=== PATIENT | female | born 1965 | race Caucasian/White ===

== ENCOUNTER 2016-11-07 11:32 | Inpatient (IN) | payer OTHER ==
[~2016-11-07] VITALS: Ht 165.1 cm; Wt 55.5 kg
[~2016-11-07 11:32] MED LIST: ALBU18HF INHALATION; BENZ100C70 PO; CETI10CA PO; GUAI118L94 PO; LEVO500T72 PO; PRED15SO PO; PRED50TA PO
[2016-11-07] MEDS ORDERED: SOD CHLORIDE 0.9% 1,000 ML IV STA (11:43)
[2016-11-07] MEDS ORDERED: NALOXONE (0.4 MG/ML) INJ IV PRN (12:00)
--- NOTE | 2016-11-07 12:14 | RADRPT ---
PROCEDURE: XR Chest. CLINICAL INDICATION: Dyspnea TECHNIQUE: Single frontal chest x-ray. COMPARISON: 12/06/2015 FINDINGS: The lungs are clear. No focal opacification is seen. The cardiomediastinal silhouette is unremarka ble. The osseous structures are unremarkable. Appearances are stable over time. IMPRESSION: 1. There is no acute cardiopulmonary process. 2. Stable appearances over time. RPTAT: HMJB .Jos Ferguson MD, MD Date Time Electronically viewed and signed by .Jos Ferguson MD, MD on 11/07/2016 12:14 .B/
[2016-11-07 12:15] LABS: BASOPHILS % 0.4 % (0.0-2.0); EOSINOPHILS % 0.3 % (0.0-7.0); HEMATOCRIT 40.6 % (37.0-47.0); HEMOGLOBIN 13.4 g/dl (12.0-16.0); LYMPHOCYTES # 1.8 10^3/ul (0.8-2.9); LYMPHOCYTES % 21.1 % (15.0-51.0); MEAN CORPUSCULAR HEMOGLOBIN 27.6 pg (29.0-33.0); MEAN CORPUSCULAR VOLUME 83.5 fl (82.0-101.0); MEAN PLATELET VOLUME 9.9 fl (7.4-10.4); MONOCYTE # 0.3 10^3/ul (0.3-0.9); MONOCYTES % 4.1 % (0.0-11.0); NEUTROPHIL # 6.2 10^3/ul (1.6-7.5); NEUTROPHILS % 74.1 % (39.0-77.0); PLATELET COUNT 266 10^3/UL (140-440); RED BLOOD COUNT 4.86 10^6/ul (4.20-5.40); RED CELL DISTRIBUTION WIDTH 13.7 % (11.5-14.5); UNCORRECTED WBC 8.4 10^3/ul (4.8-10.8); WHITE BLOOD COUNT 8.4 10^3/ul (4.8-10.8)
[2016-11-07 12:17] LABS: CONDITION 1
[2016-11-07 12:26] LABS: ADD UMIC YES; URINE BILIRUBIN (Dip) NEGATIVE (NEGATIVE); URINE BLOOD (Dip) NEGATIVE (NEGATIVE); URINE COLOR LT. YELLOW (YELLOW); URINE GLUCOSE (Dip) NEGATIVE (NEGATIVE); URINE KETONES (Dip) NEGATIVE (NEGATIVE); URINE LEUKOCYTE ESTERASE (Dip) TRACE (NEGATIVE); URINE NITRITE (Dip) NEGATIVE (NEGATIVE); URINE TOTAL PROTEIN (Dip) NEGATIVE (NEGATIVE); URINE UROBILINOGEN (Dip) 0.2 E.U./dL (0.1-1.0)
[2016-11-07 12:28] LABS: CHLORIDE 104 mmol/L (97-110)
[2016-11-07 12:29] LABS: ALBUMIN 4.4 g/dl (3.3-4.9); SODIUM 142 mmol/L (135-144)
[2016-11-07 12:30] LABS: POTASSIUM 4.5 mmol/L (3.5-5.1)
[2016-11-07 12:32] LABS: ALANINE AMINOTRANSFERASE 21 IU/L (13-69); ALBUMIN/GLOBULIN RATIO 1.18; ALKALINE PHOSPHATASE 135 IU/L (42-121); ANION GAP 16 (8-16); ASPARTATE AMINO TRANSFERASE 19 IU/L (15-46); BILIRUBIN,INDIRECT 0.7 mg/dl (0-1.1); BILIRUBIN,TOTAL 0.7 mg/dl (0.2-1.3); BLOOD UREA NITROGEN 16 mg/dl (7-20); CALCIUM 9.4 mg/dl (8.4-10.2); CARBON DIOXIDE 27 mmol/L (21-31); CREATINE KINASE 90 IU/L (23-200); CREATININE 0.72 mg/dl (0.44-1.00); GLUCOSE 87 mg/dl (70-220); TOTAL PROTEIN 8.1 g/dl (6.1-8.1)
[2016-11-07 12:37] LABS: INR 1.01; PARTIAL THROMBOPLASTIN TIME 29.3 Sec (25.0-35.0); PROTIME 13.3 Sec (12.2-14.2)
[2016-11-07 12:38] LABS: URINE RBCS 0-2 /HPF (0)
[2016-11-07 12:40] LABS: CK-MB 1.68 ng/ml (0.0-2.4)
[2016-11-07 12:44] LABS: ACETAMINOPHEN < 10.0 ug/ml (10.0-30.0); ETHANOL < 10.0 mg/dl; SALICYLATE < 1.0 mg/dl (5.0-30.0); TROPONIN-I < 0.012 ng/ml (0.00-0.12)
[2016-11-07 13:17] LABS: BARBITURATES NEGATIVE (NEGATIVE); BENZODIAZEPINES NEGATIVE (NEGATIVE); CANNABINOIDS NEGATIVE (NEGATIVE); COCAINE NEGATIVE (NEGATIVE); OPIATES NEGATIVE (NEGATIVE)
[2016-11-07] MEDS ORDERED: FLUO40CA10 PO (13:38)
[2016-11-07] MEDS ORDERED: TRAZ100T15 PO (13:39)
--- NOTE | 2016-11-07 13:40 | RADRPT ---
PROCEDURE: CT Brain without contrast. CLINICAL INDICATION: Altered Mental Status TECHNIQUE: A multiplanar CT of the brain was performed on a CT scanner utilizing axial imaging fro m the skull base through the vertex without IV contrast. The CTDIvol is 45.0 mGy and the DLP is 630 .20 mGycm. One or more of the following dose reduction techniques were utilized: Automated exposur e control, adjustment of the mA and/or kV according to patient size, use of iterative reconstruction technique. COMPARISON: None FINDINGS: No evidence of intracranial hemorrhage or abnormal extra-axial fluid collection. The brain parenchyma is normal attenuation morphology with preservation of pa white differentiatio n and age appropriate size of the ventricles and subarachnoid spaces. Bilateral physiologic basal ganglia calcifications. The posterior fossa contents, brainstem, craniocervical junction, orbits, pituitary axis, paranasal sinuses, mastoid air cells, and calvarium are unremarkable. IMPRESSION: 1. No intracranial hemorrhage or acute intracranial. 2. Early ischemic injury may be occult to CT imaging and diffusion weighted MRI may be considered as clinically warranted. RPTAT:AAJJ Physician Inez Date Time Electronically viewed and signed by Physician Inez on 11/07/2016 13:39 RADHA/
[2016-11-07] MEDS ORDERED: CLON-379 PO (14:21)
[2016-11-07] MEDS ORDERED: CLON1TAB3 PO (14:22)
[2016-11-07 14:24] LABS: T3 UPTAKE 35.7 % (23.5-40.5)
[2016-11-07] MEDS ORDERED: OLAN15TA3 PO (14:25)
--- NOTE | 2016-11-07 14:34 | ERA ---
ER Documentation Chief Complaint Date/Time DATE: 11/07/16 TIME: 14:26 Chief Complaint overdose at home; ems admin narcan with therapeutic results HPI This is a 51-year-old female with a known history of depression. The patient was recently admitted to a psychiatric facility for a month and a half for suicidal thoughts and ideations and was discharged on September 27, 2016. Her ex - indicates that over the past several days the patient has been expressing multiple suicidal thoughts and has been very quiet and requesting time alone. She lives with her cousin. Her cousin stated she found her sleeping on the floor and immediately phoned 911. When EMS arrived they stated there was a fluoxetine 40 mg bottle adjacent to her as well as a trazodone 100 mg tablets. The fluoxetine bottle was full and there was one trazodone missing. Therefore it was suspected that the patient took 100 mg of trazodone and it is unknown what time this was taken. According to EMS the patient had pinpoint pupils and was given some nasal Narcan with no improvement of her symptoms. She was maintaining her airway. There is no signs of trauma or drug paraphernalia according to EMS. ROS All systems reviewed and are negative except as per history of present illness. Medications Home Meds Reported Medications Olanzapine* (Zyprexa*) 15 Mg Tablet, 15 MG PO DAILY, #30 TAB 11/07/16 Clonazepam* (Clonazepam*) 1 Mg Tablet, 1 MG PO Q8H Y for ANXIETY, TAB 11/07/16 Trazodone Hcl* (Trazodone Hcl*) 100 Mg Tablet, 100 MG PO QHS, #30 TAB 11/07/16 Fluoxetine Hcl* (Prozac*) 40 Mg Capsule, 40 MG PO DAILY, CAP 11/07/16 Discontinued Reported Medications Clonidine Hcl* (Clonidine Hcl*) 0.1 Mg Tab, 0.1 MG PO TID Y for ANXIETY, TAB 11/07/16 Discontinued Scripts Benzonatate* (Tessalon Perle*) 100 Mg Capsule, 100 MG PO Q8H Y for COUGH, #20 CAP Prov:YOANDY CASTELLANOS PA-C 02/25/16 Cetirizine Hcl* (Zyrtec*) 10 Mg Capsule, 10 MG PO DAILY, #10 TAB.CHEW Prov:YOANDY CASTELLANOS PA-C 02/25/16 Levofloxacin* (Levaquin*) 500 Mg Tablet, 500 MG PO DAILY for 7 Days, TAB Prov:SILVIAYONIS Ronald 12/06/15 Prednisone* (Prednisone*) 50 Mg Tablet, 50 MG PO DAILY for 5 Days, TAB Prov:SHOAIB COSTA PHYSICIAN'S AIDE 12/02/15 Guaifenesin-Codeine Phosphate* (Guaifenesin* with Codeine Liq) 120 Ml Liquid, 5 ML PO Q4H for COUGH, #60 ML Prov:SHOAIB COSTA PHYSICIAN'S AIDE 12/02/15 Benzonatate* (Tessalon Perle*) 100 Mg Capsule, 100 MG PO TID, #14 CAP Prov:IKE MONDRAGON 12/02/15 Albuterol Sulfate* (Ventolin HFA*) 18 Gm Hfa.aer.ad, 2 PUFF INHALATION Q4H, #1 INHALER Prov:IKE MONDRAGON 12/02/15 Prednisolone* (Prelone*) 15 Mg/5 Ml Solution, 20 MG PO BID for 5 Days, ML Prov:IKE MONDRAGON 12/02/15 Allergies Allergies: Coded Allergies: No Known Allergy (Unverified , 11/07/16) PMhx/Soc History of Surgery: No Anesthesia Reaction: No Hx 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 Disorder: No Hx Respiratory Disorders: No Hx Cardiac Disorders: No Hx Psychiatric Problems: Yes (Anxiety/depression, Pschizophrenia) Hx Miscellaneous Medical Probl: No Hx Alcohol Use: No Hx Substance Use: No Hx Tobacco Use: No Smoking Status: Never smoker Physical Exam Vitals Vital Signs Date Time Temp Pulse Resp B/P Pulse Ox O2 Delivery O2 Flow Rate FiO2 11/08/16 09:58 98.0 72 18 125/74 99 Room Air 11/08/16 02:00 98.3 75 16 122/75 99 Room Air 11/07/16 23:14 98.3 76 16 128/73 100 Room Air 11/07/16 22:56 98.3 64 16 130/76 100 Room Air 11/07/16 20:37 98.3 75 16 118/78 100 Room Air 11/07/16 16:52 98.1 73 18 122/76 100 Room Air 11/07/16 14:00 98.1 66 16 128/78 100 Room Air 11/07/16 11:48 97.6 72 18 115/74 100 Physical Exam Constitutional:Well-developed. Well-nourished. HEENT:Normocephalic. Atraumatic.Pupils were 2 mm equal round reactive to light. Moist mucous membranes.No tonsillar exudates. No nasoseptal hematoma. No hemotympanum. Neck: No nuchal rigidity. No lymphadenopathy. No posterior cervical spine tenderness or step-offs. Respiratory: Not using accessory muscles of respiration.Lungs were clear to auscultation bilaterally. No rhonchi. No rales. No wheezing. Cardiovascular: Regular rate regular rhythm.No murmurs. No rubs were appreciated.S1, S2 normal. Distal pulses are palpable 2+ bilaterally. GI: Abdomen was soft. Nontender. Non Distended. No pulsatile abdominal masses or bruits. No rebound. No guarding. Bowel sounds were present and normal. Muscle skeletal: Full range of motion of both the upper and lower extremities bilaterally.Normal muscle tone.No assymetrical calf tenderness or swelling. Skin: No petechia, no purpura. No lesions on the palms or the soles of the feet. No maculopapular rash. NEURO: Patient was drowsy and had slurred speech. She would follow simple verbal command. Gait was not able to be observed due to patient's drowsiness. Result Diagram: 11/07/16 1200 11/07/16 1200 Results 24 hrs Laboratory Tests Test 11/07/16 12:00 11/07/16 12:10 Acetaminophen Level < 10.0ug/ml Activated Partial Thromboplast Time 29.3Sec Alanine Aminotransferase (ALT/SGPT) 21IU/L Albumin 4.4g/dl Albumin/Globulin Ratio 1.18 Alkaline Phosphatase 135IU/L Ammonia < 9umol/l Anion Gap 16 Aspartate Amino Transf (AST/SGOT) 19IU/L Basophils # 0.010^3/ul Basophils % 0.4% Blood Morphology Comment Blood Urea Nitrogen 16mg/dl Calcium Level 9.4mg/dl Carbon Dioxide Level 27mmol/L Chloride Level 104mmol/L Creatine Kinase 90IU/L Creatine Kinase Index 1.9 Creatinine 0.72mg/dl Creatinine Kinase MB (Mass) 1.68ng/ml Direct Bilirubin 0.00mg/dl Eosinophils # 0.010^3/ul Eosinophils % 0.3% Ethyl Alcohol Level < 10.0mg/dl Free Thyroxine Index 3.18ug/ml Globulin 3.70g/dl Glucose Level 87mg/dl Hematocrit 40.6% Hemoglobin 13.4g/dl INR International Normalized Ratio 1.01 Indirect Bilirubin 0.7mg/dl Lymphocytes # 1.810^3/ul Lymphocytes % 21.1% Mean Corpuscular Hemoglobin 27.6pg Mean Corpuscular Hemoglobin Concent 33.0g/dl Mean Corpuscular Volume 83.5fl Mean Platelet Volume 9.9fl Monocytes # 0.310^3/ul Monocytes % 4.1% Neutrophils # 6.210^3/ul Neutrophils % 74.1% Nucleated Red Blood Cells # 0.010^3/ul Nucleated Red Blood Cells % 0.0/100WBC Platelet Count 10828^3/UL Potassium Level 4.5mmol/L Prothrombin Time 13.3Sec Prothrombin Time Ratio 1.0 Red Blood Count 4.8610^6/ul Red Cell Distribution Width 13.7% Salicylates Level < 1.0mg/dl Sodium Level 142mmol/L Thyroxine (T4) 8.9ug/dl Total Bilirubin 0.7mg/dl Total Protein 8.1g/dl Triiodothyronine (T3) Uptake 35.7% Troponin I < 0.012ng/ml White Blood Count 8.410^3/ul Urine Amphetamines Screen NEGATIVE Urine Barbiturates NEGATIVE Urine Benzodiazepines Screen NEGATIVE Urine Bilirubin NEGATIVE Urine Cannabinoids NEGATIVE Urine Clarity CLEAR Urine Cocaine Screen NEGATIVE Urine Color LT. YELLOW Urine Glucose NEGATIVE% Urine Hemoglobin NEGATIVE Urine Ketones NEGATIVE Urine Leukocyte Esterase TRACE Urine Microscopic RBC 0-2/HPF Urine Microscopic WBC 2-5/HPF Urine Nitrite NEGATIVE Urine Opiates Screen NEGATIVE Urine Specific [place] <=1.005 Urine Total Protein NEGATIVE Urine Urobilinogen 0.2 E.U./dL Urine pH 6.0 Current Medications Medications (Trade) Dose Ordered Sig/Adnoay Route PRN Reason Start Time Stop Time Status Last Admin Dose Admin Naloxone HCl 0.4 mg 0.4 mg Q2M PRN IV LETHARGY 11/07/16 12:00 11/07/16 12:05 Sodium Chloride (NS) 1,000 ml @ 1,000 mls/hr Q1H STAT IV 11/07/16 11:43 11/07/16 12:42 DC 11/07/16 12:06 Procedures/MDM The patient presented to the emergency department with an acute and persistent change in their mental status. The differential diagnosis is diverse however reversible causes such as hypoglycemia, opiate overdose, thiamine deficiency were immediately considered. The patient was placed on a ekg monitor, continuous pulse oximetry and IV access was established. The patients airway was secure however hypoxic events such as anemia, shock, or severe pulmonary disease were all considered as etiologies in this patients presentation. Circulation assessed with good cap refill and did not require fluids or pressure support. Finger stick for rapid glucose determined to be normal. The patient was given a liter bolus of 0.9 normal saline. 0.4 mg of Narcan had been given to the patient with no changes in her mental status. Her urine drug screen was negative for opiates and it was my clinical impression that the patient likely had taken 100 mg of trazodone resulting in the sedative causing the drowsiness of the patient. She now was much more alert awake and was answering all questions appropriately. She did state that she had attempted to commit suicide and took her trazodone. She has been having suicidal thoughts and has a plan to kill herself with overdosing on her prescription medications. Therefore at this time I did feel the patient required evaluation by the PET team for transfer to her suicidal thoughts and ideations. Documentation also indicates that the patient is on Klonopin. There is no electrolyte abnormalities. The patient was medically cleared by myself. I obtained a CT scan of the head which showed no acute intracerebral hemorrhage mass-effect or midline shift. Departure Diagnosis: Primary Impression: Toxic encephalopathy Additional Impression: Suicidal thoughts Condition: Serious DEEJAY DEVLIN Nov 07, 2016 14:34
--- NOTE | 2016-11-08 10:26 | QN ---
Documentation Comment Observation Note: Time: 4 hours Family Hx: Negative for diabetes Evaluation: Multiple exams showed improving symptoms and no evidence of clinical decompensation. Patient is pending psychiatric evaluation as well as transfer to a psychiatric facility. JAZZ ALBERTO MD Nov 08, 2016 10:26
--- NOTE | 2016-11-08 11:39 | PSY ---
Date/Time of Note Date/Time of Note DATE: 11/08/16 TIME: 11:33 Psychiatric Subjective Eval Consent Pt consented to telemedicine: Yes Subjective Evaluation Patient location: emergency Chief Complaint: overdose at home; ems admin narcan with therapeutic results History of present illness d/w Dr Morgan. Pt is 51 yo single disabled female with hx MDD; s/p OD on prozac and trazodone. Pt was inpt for 8 weeks, discharged 09/27/16 but started talking about suicide prior to OD. Pt is withdrawn, barely speaks to the medical staff in ED, whispers, not feeding herself, refuses to walk. She nods then asked if she is still suicidal, she is oriented at least x3, she denies ahor vh. Not clear if she is delusional - she is selectively mute. Pt's past meds include zyprexa, prozac and tzd. Past psychiatric history largely unknown, hx deprssion and prior SA, prior inpt Hospitalization: Suicidal Attempt(s) Family History unknown Medical history Problems Medical Problems: (1) Acute bacterial bronchitis Status: Acute (2) Acute viral bronchitis Status: Acute (3) Cough Status: Acute (4) Reactive airway disease Status: Acute (5) Suicidal thoughts Status: Acute (6) Toxic encephalopathy Status: Acute (7) Viral bronchitis Status: Acute Allergies: Coded Allergies: No Known Allergy (Unverified , 11/07/16) Substance Abuse Substance use: No known substance abuse Social History Marital status: DPA/Conservatorship: No Psychiatric Objective Eval Mental Status Examination: Appearance: Bizarre Eye Contact: None Psychomotor Activity: Slow Behavior: Cooperative Speech: Soft, Monotone, Slowed, Prolong Speech Latency AFFECT: Flat Mood: Depressed Though Process: Linear Suicidal: Yes Homicidal: No Orientation: x3 Cognition: Alert Insight: Impared Judgement: Impared Laboratory Results Laboratory Tests Test 11/07/16 12:00 11/07/16 12:10 Acetaminophen Level < 10.0ug/ml Activated Partial Thromboplast Time 29.3Sec Alanine Aminotransferase (ALT/SGPT) 21IU/L Albumin 4.4g/dl Albumin/Globulin Ratio 1.18 Alkaline Phosphatase 135IU/L Ammonia < 9umol/l Anion Gap 16 Aspartate Amino Transf (AST/SGOT) 19IU/L Basophils # 0.010^3/ul Basophils % 0.4% Blood Morphology Comment Blood Urea Nitrogen 16mg/dl Calcium Level 9.4mg/dl Carbon Dioxide Level 27mmol/L Chloride Level 104mmol/L Creatine Kinase 90IU/L Creatine Kinase Index 1.9 Creatinine 0.72mg/dl Creatinine Kinase MB (Mass) 1.68ng/ml Direct Bilirubin 0.00mg/dl Eosinophils # 0.010^3/ul Eosinophils % 0.3% Ethyl Alcohol Level < 10.0mg/dl Free Thyroxine Index 3.18ug/ml Globulin 3.70g/dl Glucose Level 87mg/dl Hematocrit 40.6% Hemoglobin 13.4g/dl INR International Normalized Ratio 1.01 Indirect Bilirubin 0.7mg/dl Lymphocytes # 1.810^3/ul Lymphocytes % 21.1% Mean Corpuscular Hemoglobin 27.6pg Mean Corpuscular Hemoglobin Concent 33.0g/dl Mean Corpuscular Volume 83.5fl Mean Platelet Volume 9.9fl Monocytes # 0.310^3/ul Monocytes % 4.1% Neutrophils # 6.210^3/ul Neutrophils % 74.1% Nucleated Red Blood Cells # 0.010^3/ul Nucleated Red Blood Cells % 0.0/100WBC Platelet Count 64269^3/UL Potassium Level 4.5mmol/L Prothrombin Time 13.3Sec Prothrombin Time Ratio 1.0 Red Blood Count 4.8610^6/ul Red Cell Distribution Width 13.7% Salicylates Level < 1.0mg/dl Sodium Level 142mmol/L Thyroxine (T4) 8.9ug/dl Total Bilirubin 0.7mg/dl Total Protein 8.1g/dl Triiodothyronine (T3) Uptake 35.7% Troponin I < 0.012ng/ml White Blood Count 8.410^3/ul Urine Amphetamines Screen NEGATIVE Urine Barbiturates NEGATIVE Urine Benzodiazepines Screen NEGATIVE Urine Bilirubin NEGATIVE Urine Cannabinoids NEGATIVE Urine Clarity CLEAR Urine Cocaine Screen NEGATIVE Urine Color LT. YELLOW Urine Glucose NEGATIVE% Urine Hemoglobin NEGATIVE Urine Ketones NEGATIVE Urine Leukocyte Esterase TRACE Urine Microscopic RBC 0-2/HPF Urine Microscopic WBC 2-5/HPF Urine Nitrite NEGATIVE Urine Opiates Screen NEGATIVE Urine Specific [place] <=1.005 Urine Total Protein NEGATIVE Urine Urobilinogen 0.2 E.U./dL Urine pH 6.0 Assessment and Plan Assessment/Diagnosis [place] I: MAJOR DEPRESSIVE D/O RECURRENT SEVERE [place] II: DEFERED [place] III: PER RECORD [place] IV: MODERATE [place] V: GAF 25 Recommendation/Plan Medication Management cONSIDER STARTIN ON ABILIFY 5 MG PO QD; CONTINUE ON PROZAC 40 MG POQD Psychotherapy DEFER TO INPT Follow-up/Disposition 5150 FOR DTS, GD, TRANSFER TO INPT PSYCH. 5150 Recommendation: Continue Hold SARITHA MACIAS MD Nov 08, 2016 11:39
[2016-11-08] MEDS: ARIPIPRAZOLE 5 MG TAB PO SCH (13:19)
[2016-11-09] MEDS: ARIPIPRAZOLE 5 MG TAB PO SCH (09:10)
--- NOTE | 2016-11-09 13:49 | EN ---
Date/Time of Note Date/Time of Note DATE: 11/09/16 TIME: 13:44 ER Progress Note It was brought to my attention by the staff that the patient was unable to ambulate and was generally weak. When they did try to get her up she almost fell onto the floor. I went back to evaluate her and the patient has significant generalized weakness and altered mental status. I reviewed her CT of her head and her lab work and all this is within normal limits and does not explain her significant weakness. She is unable to go to any psychiatric facilities because of this. It is felt that if this weakness had been due to an overdose that should have resolved by this time as she has been here now for over 48 hours. Her states that about 4-6 weeks ago she was within normal limits and able to ambulate on her own and that this has developed pretty significantly within a short amount of time. They will consult to admit her to the hospital for further evaluation and treatment of this weakness and altered mental status. It may be that she needs to be transferred to a long-term facility for physical rehabilitation. TIP EDMONDSON Nov 09, 2016 13:49
--- NOTE | 2016-11-09 15:48 | QN ---
Documentation Comment Patient was found to have negative drug screen and negative tylenol, alcohol, aspirin levels. Patient is still extremely weak with generalized weakness and has been in the ER for 52 hours. I believe the initial thought that this was drug overdose may be erroneous and now the patient had generalized weakness and may benefit from SNF placement with potential rehab. I spoke with Dr. Clarke who will assist with finding SNF placement. MRI's are pending at this time. JAZZ ALBERTO MD Nov 09, 2016 15:48
[2016-11-09 19:17] LABS: CREATINE KINASE 104 IU/L (23-200)
[2016-11-09 19:28] LABS: CK-MB 1.73 ng/ml (0.0-2.4)
[2016-11-09 19:41] LABS: TROPONIN-I < 0.012 ng/ml (0.00-0.12)
--- NOTE | 2016-11-09 20:33 | QN ---
Documentation Comment Observation Note: Time: 4 hours Family Hx: Negative for diabetes Evaluation: Multiple exams showed improving symptoms and no evidence of clinical decompensation. JAZZ ALBERTO MD Nov 09, 2016 20:33
--- NOTE | 2016-11-09 22:51 | RADRPT ---
PROCEDURE: MRI Brain without contrast. CLINICAL INDICATION: 51-year-old female unable to walk possible overdose. TECHNIQUE: An MRI of the brain was performed without contrast utilizing the following sequences: Sagittal T1 weighted, sagittal FLAIR, axial T1, axial FLAIR, axial T2 weighted, axial diffusion weig hted (EPI technique [id number]), axial ADC mapping. The images were reviewed on a high-resolution PACS workstation. COMPARISON: CT head 11/07/2016 FINDINGS: The images are degraded due to motion artifact on multiple sequences. Diffusion weighted sequences demonstrate no evidence of acute lacunar or lobar infarction. There is no intracranial hemorrhage, extra-axial fluid collection, mass lesion, midline shift or hydrocephalous. The ventricles, sulci a nd cisterns are normal in size and configuration. The basal cisterns are patent. The signal intensi ty is normal throughout the cerebrum, brain stem and cerebellum. Normal flow voids are visible the proximal intracranial arteries and dural sinuses, indicating patency. The midline structures are in tact. The paranasal sinuses, mastoid air cells and middle ear cavities are normally aerated. The orbits, calvarium and extracranial soft tissues are normal in appearance. IMPRESSION: 1. No acute intracranial abnormality. No intracranial hemorrhage, mass lesion, infarction or hydro cephalous. RPTAT: HGAS .Deni Knox MD, Date Time Electronically viewed and signed by .Deni Knox MD, on 11/09/2016 22:50 .S/
--- NOTE | 2016-11-09 22:59 | RADRPT ---
PROCEDURE: MRI Cervical Spine without contrast. CLINICAL INDICATION: 51-year-old female unable to walk possible overdose. TECHNIQUE: An MRI of the cervical spine was performed without contrast utilizing multiple sequence s in the sagittal and axial planes. Images reviewed on a high-resolution PACS system.. COMPARISON: No prior studies are available for comparison. FINDINGS: There is diffuse straightening of the cervical spine without reversal of normal cervical lordosis. There is diffuse desiccation of the intervertebral discs with moderate loss of disc-space height at C4-5, C5-6 and C6-7. There are mild associated discogenic endplate changes at these levels. There is prevertebral soft tissue swelling seen extending from C2 to the level of C4. The anterior longit udinal ligament appears intact. The vertebral body heights are maintained. The marrow signal is wi thin normal limits. There is no evidence of edema within the clavicle - dental interval. There is minimal edema adjacent to the interspinous articulations at C1-2, C2-3, C3-4 and C4-5 (sagittal seri es image 7). There is no significant listhesis. The craniocervical and cervical medullary junction s are unremarkable. The cervical cord is normal in caliber and signal intensity. Occiput-C2: The anatomic relationships are normal without canal stenosis. C2-3: There is a 1 mm posterior disc/osteophyte complex. The thecal sac and neural foramina are pat ent. C3-4: There is a 1-2 mm posterior disc/osteophyte complex. The thecal sac is patent measuring 11 mm midline AP diameter. There is mild bilateral facet joint hypertrophy. There is mild bilateral faustino ral foraminal narrowing. C4-5: There is a broad-based 2-3 mm posterior disc/osteophyte complex. The thecal sac measures 7.4 mm in midline AP diameter. There is effacement of the ventral and dorsal CSF columns. There is mil d bilateral facet hypertrophy and moderate left and mild right uncovertebral joint spondylosis. The re is severe left and mild right neural foraminal narrowing. C5-6: There is a broad-based 2-3 mm posterior disc/osteophyte complex, slightly asymmetric to the ri ght paracentral region. The thecal sac measures 7.3 mm midline AP diameter. There is effacement of the ventral and dorsal CSF columns. There is mild bilateral facet hypertrophy and mild to moderate bilateral uncovertebral joint spondylosis. There is severe bilateral neural foraminal narrowing. C6-7: There is a broad-based 2 mm posterior disc/osteophyte complex. The thecal sac measures 8 mm i n midline AP diameter. There is partial effacement of the ventral CSF column. There is mild bilate ral facet hypertrophy and mild left uncovertebral joint spondylosis. There is moderate left and mil d right neural foraminal narrowing. C7-T1: There is a 1-2 mm posterior disc/osteophyte complex. The thecal sac and neural foramina are patent. IMPRESSION: 1. Mild amount of edema in the prevertebral soft tissues as well as of the interspinous articulatio ns at C1-2, C2-3, C3-4 and C4-5. Concern is raised for possible ligamentous injury. No definite zach dence of fracture or dislocation. 2. The cervical cord is normal in signal and caliber. No evidence of myelopathic changes at this ti me. 3. Moderate spondylosis at C4-5 and C5-6 with subsequent moderate central stenosis. 4. Multilevel facet and uncovertebral joint spondylosis with severe narrowing of the left C4-5 and bilateral C5-6 foramina. Other mild to moderate foraminal narrowings as discussed above. RPTAT: HGAS .Deni Knox MD, Date Time Electronically viewed and signed by .Deni Knox MD, on 11/09/2016 22:59 .S/
--- NOTE | 2016-11-09 23:05 | RADRPT ---
PROCEDURE: MRI Thoracic Spine without contrast. CLINICAL INDICATION: 51-year-old female unable to walk possible overdose. TECHNIQUE: An MRI of the thoracic spine was performed with multiple sequences in the sagittal and axial planes without contrast. Images reviewed on a high-resolution PACS system. COMPARISON: No prior studies are available for comparison. FINDINGS: The thoracic kyphosis is maintained. The vertebral body heights are maintained. There is a T1 hype rintense/T2 hyperintense osseous hemangioma in the T4 vertebral body The marrow signal intensity is otherwise grossly unremarkable. The intervertebral disc spaces are normal in signal and height. No acute fracture or subluxation is seen. The thoracic spinal cord is normal in caliber and signal in tensity. No central canal or neural foraminal narrowing is seen. No paravertebral fluid collection or mass is seen. The visualized portions of the chest and upper abdomen are grossly unremarkable. There are small bilateral pleural effusions. IMPRESSION: 1. Normal MRI of the thoracic spine. No evidence of fracture or significant degenerative disc disea se. 2. The thoracic spinal cord is normal in signal and caliber. 3. Small bilateral pleural effusions. RPTAT: HGAS .Deni Knox MD, Date Time Electronically viewed and signed by .Deni Knox MD, on 11/09/2016 23:05 .S/
--- NOTE | 2016-11-09 23:09 | RADRPT ---
PROCEDURE: MRI Lumbar Spine without contrast. CLINICAL INDICATION: 51-year-old female unable to walk possible overdose. TECHNIQUE: An MRI of the lumbar spine was performed with multiple sequences in the sagittal and ax ial planes without contrast. Images reviewed on a high-resolution PACS system. COMPARISON: None available at the time of dictation. FINDINGS: The alignment of the lumbar spine is normal. No vertebral body subluxation is seen. There is minim al desiccation of the L5-S1 disc-space with preserved height. The remaining intervertebral discs ar e normal in height and signal intensity. The vertebral body heights and marrow signal are normal. The conus medullaris is visible at the L1 level and appears grossly normal. The lumbar nerve roots are normal in appearance. The paraspinal soft tissues are unremarkable. No significant paraspinal soft tissue swelling. There is moderate distension of the bladder, which is nonspecific. L1-L2: The posterior margin of the disc is normal in appearance. No significant disc bulge or prot rusion is evident. The central canal and neural foramina are adequately patent. L2-L3: The posterior margin of the disc is normal in appearance. No significant disc bulge or prot rusion is evident. The central canal and neural foramina are adequately patent. L3-L4: The posterior margin of the disc is normal in appearance. No significant disc bulge or prot rusion is evident. The central canal and neural foramina are adequately patent. L4-L5: There is a 2 mm annular disc bulge. The thecal sac and lateral recesses are patent. There is moderate bilateral facet spondylosis. The neural foramina are patent. L5-S1: There is a 1-2 mm annular disc bulge. The thecal sac and lateral recesses are patent. Ther e is mild bilateral facet spondylosis. The neural foramina are patent. IMPRESSION: 1. Moderate facet spondylosis at L4-5 with superimposed 2 mm annular disc bulge. No significant na rrowing of the lumbar thecal sac, lateral recesses or neural foramina. 2. Otherwise, normal MRI of the lumbar spine. No significant narrowing of the lumbar thecal sac, l ateral recesses or neural foramina. 3. Moderate prominence of the bladder, which is nonspecific. RPTAT: HGAS .Deni Knox MD, MD Date Time Electronically viewed and signed by .Deni Knox MD, MD on 11/09/2016 23:09 .S/
--- NOTE | 2016-11-10 08:33 | PSY ---
Date/Time of Note Date/Time of Note DATE: 11/10/16 TIME: 08:27 Psychiatric Subjective Eval Consent Pt consented to telemedicine: Yes Subjective Evaluation Patient location: emergency Chief Complaint: overdose at home; ems admin narcan with therapeutic results Reason for consult: re-eval History of present illness 51 yo disabled female evaluated by this typewriter operator automatic on 11/08/16, s/p OD. Pt maintains status quo: refusing to ambulate, went to the bathroom on her own last night though, per ED MD, refusing to eat. PT refused to talk to me, states : "Not today". Past psychiatric history please see prior eval Hospitalization: yes Medical history Problems Medical Problems: (1) Acute bacterial bronchitis Status: Acute (2) Acute viral bronchitis Status: Acute (3) Cough Status: Acute (4) Reactive airway disease Status: Acute (5) Suicidal thoughts Status: Acute (6) Toxic encephalopathy Status: Acute (7) Viral bronchitis Status: Acute Allergies: Coded Allergies: No Known Allergy (Unverified , 11/07/16) Substance Abuse Substance use: No known substance abuse Social History Marital status: DPA/Conservatorship: No Psychiatric Objective Eval Mental Status Examination: Appearance: Poor Hygiene Eye Contact: Poor Psychomotor Activity: Slow Behavior: Other Speech: Slowed AFFECT: Depressed Mood: Depressed Thought Content: Hallucinations Suicidal: Yes Homicidal: No Laboratory Results Laboratory Tests Test 11/09/16 19:00 Creatine Kinase 104IU/L Creatine Kinase Index 1.7 Creatinine Kinase MB (Mass) 1.73ng/ml Troponin I < 0.012ng/ml Assessment and Plan Assessment/Diagnosis [place] I: MAJOR DEPRESSIVE DISORDER RECURRENT SEVERE WITH PSYCHOSIS [place] II: DEFERED [place] III: PER RECORD [place] IV: MODERATE [place] V: 20 Recommendation/Plan Medication Management PLEASE INCREASE ABILIFY TO 7.5 MG PO QD. CONSIDER ADMINISTERING AT QHS INSTEAD OF QD IF SEDATED. PLEASE CONISDERIN STARTIN ON ADDERALL 10 MG PO QAM AND Q NOON. Psychotherapy DEFER TO INPT Follow-up/Disposition PLEASE STRONGLY CONSIDER TO TRANSFER PT TO [facility]. BASED ON PROMINENT VEGETATIVE SMPX OF HER DEPRESSION THE PT WOULD BE A GOOD CANDIDATE FOR ECT. 5150 Recommendation: Continue Hold SARITHA MACIAS MD Nov 10, 2016 08:33
[2016-11-10] MEDS: ARIPIPRAZOLE 5 MG TAB PO SCH (09:41)
[2016-11-11] VITALS (9 sets, daily range): BP systolic 104–110; BP diastolic 63–87; PULSE 88–96; RESP 19–22; TEMP 99; Ht 165.1 cm; Wt 55.5 kg
--- NOTE | 2016-11-11 01:35 | PSY ---
Date/Time of Note Date/Time of Note DATE: 11/11/16 TIME: 01:26 Psychiatric Subjective Eval Consent Pt consented to telemedicine: Yes Subjective Evaluation Patient location: emergency Chief Complaint: overdose at home; ems admin narcan with therapeutic results Reason for consult: re-eval History of present illness patient is a 51 yo female with PPH of depression and anxiety who was brought in to the ER 23 days ago due to suicidal attempt, she was put on a 72 hr for dts who has , she was put on abillify by consulting psychiatrist dr parks, however patient used to be on clonazepam, zyprexa, trazodone and prozac, patient states that she still wants to , she states that she lost complete michael and hope in life 6 months ago but cant tell me why, she lives with her cousin, has one daughter that visits her sometimes, she denies any HI, she has been having problem sleeping, decrease appetite, and no energy, denies any current manic or psychotic symptoms, but states that all her body hurts and that she cant move. Past psychiatric history past suicidal attempt denies Hospitalization: yes Family History denies Medical history Problems Medical Problems: (1) Acute bacterial bronchitis Status: Acute (2) Acute viral bronchitis Status: Acute (3) Cough Status: Acute (4) Reactive airway disease Status: Acute (5) Suicidal thoughts Status: Acute (6) Toxic encephalopathy Status: Acute (7) Viral bronchitis Status: Acute Allergies: Coded Allergies: No Known Allergy (Unverified , 11/07/16) Substance Abuse Substance use: No known substance abuse Social History Marital status: single Level of education: hs DPA/Conservatorship: No Occupation/Senior Living: unemployed Psychiatric Objective Eval Review of Systems: Review of Systems: Not Applicable Physical Examination: Physical Examination: Applicable Sleep: Insomnia Appetite: Decreased Energy: Decreased Interest: Decreased Mental Status Examination: Appearance: Disheveled Eye Contact: Fair Psychomotor Activity: Slow Behavior: Cooperative Speech: Soft AFFECT: Flat Mood: Depressed Though Process: Linear Thought Content: Delusions Suicidal: Yes Homicidal: No On 72 hour hold: No Orientation: x2 Cognition: Alert Insight: Impared Judgement: Impared Attention Span: Distractible Laboratory Results Laboratory Tests Test 11/09/16 19:00 Creatine Kinase 104IU/L Creatine Kinase Index 1.7 Creatinine Kinase MB (Mass) 1.73ng/ml Troponin I < 0.012ng/ml Assessment and Plan Assessment/Diagnosis [place] I: major depressive do severe with psychotic features anxiety do nos [place] II: deferred [place] III: as per record [place] IV: poor social support [place] V: gaf 20 Recommendation/Plan Medication Management since patient used to be on zyprexa i would discontinue abilify and give zyprexa 10 mg po qhs and since she was on clonazepam then give 1 mg po bid and for depression wellbutrin XL 150 mg po qam Follow-up/Disposition Please admit patient on unvoluntary status due to Danger to self, In my opinion, patient currently MEETS criterion for inpatient care and CANNOT be safely treated at a lower level of care today as evidenced by the following risk factors: Current and Recent Suicidal Ideation Previous suicide attempt and severe self-destructive behavior Intense feelings of hopelessness and lack of future orientation. Significant recent DETERIORATION in function, behavior and thought processes Patient has failed outpatient and requires further inpatient assessment Medication changes require observation unavailable at a lower level of care. 5150 Recommendation: Continue Hold LEIGHA ASHTON MD Nov 11, 2016 01:35
--- NOTE | 2016-11-11 02:49 | EN ---
Date/Time of Note Date/Time of Note DATE: 11/11/16 TIME: 02:47 ER Progress Note Observation Note: Time: 4 hours Family Hx: No Hypertension Evaluation: Multiple exams showed improving symptoms and no evidence of psychiatric emergency She was evaluated by telepsychiatrist again and put on 5150 hold again. She recommended Zyprexa 10 mg p.o. and clonazepam 1 mg po ALAN FAGAN MD Nov 11, 2016 02:49
[2016-11-11] MEDS ORDERED: clonAZEPAM 0.5 MG TAB PO ONE (03:00)
[2016-11-11] MEDS ORDERED: OLANZAPINE 5 MG TAB PO ONE ×2 (03:00→08:00)
[2016-11-11] MEDS ORDERED: FLUOXETINE 20 MG CAP PO ONE (08:00)
[2016-11-11] MEDS ORDERED: traZODone 100 MG TAB PO ONE (08:00)
[2016-11-11] MEDS: ARIPIPRAZOLE 5 MG TAB PO SCH (09:00)
[2016-11-11] MEDS ORDERED: DEXAMETHASONE 4 MG/ML 1 ML INJ IV ONE (09:30)
--- NOTE | 2016-11-11 09:43 | EN ---
Date/Time of Note Date/Time of Note DATE: 11/11/16 TIME: 09:38 ER Progress Note I received a call from a physician colleague notifying me that this patient did have an MRI ordered with results. I have looked at the MRI results and it appears the patient does have possible ligamentous injury. Please see MRI reports below. I have looked at this patient's previous medical note and have noted that this patient has been in the emergency room for greater than 90 hours and was brought in for possible overdose. This patient had a clear tox screen and no alcohol on her initial evaluation. She has been given antipsychotic medications and her last medication dose was Zyprexa 10 mg at 6 AM according to her nurse. This patient also receives Klonopin 1 mg p.o. at 3 AM. I originally had psychiatric medications written for this patient however I canceled them when I saw this MRI report. I have contacted our neurosurgeon transitional care liaison, Dr. albarado for evaluation of possible cord injury. He is at bedside with an neurological exam which does reveal hyperreflexia, 4 out of 5 strength in the left lower extremity and right lower extremity, and 4 out of 5 strength in the bilateral upper extremities. This patient is a moderately sedated and there is no way at this time to clearly distinctly identified the source of this patient's weakness has being caused by medication versus a possible ligamentous injury in the cervical spine. Dr. ken has recommended this patient received 4 mg of IV Decadron. This patient has received that medication will be placed in ICU at this time under the care of Dr. Clarke who is aware of this patient. Cervical MRI: 1. Mild amount of edema in the prevertebral soft tissues as well as of the interspinous articulations at C1-2, C2-3, C3-4 and C4-5. Concern is raised for possible ligamentous injury. No definite evidence of fracture or dislocation. 2. The cervical cord is normal in signal and caliber. No evidence of myelopathic changes at this time. 3. Moderate spondylosis at C4-5 and C5-6 with subsequent moderate central stenosis. 4. Multilevel facet and uncovertebral joint spondylosis with severe narrowing of the left C4-5 and bilateral C5-6 foramina. Other mild to moderate foraminal narrowings as discussed above. Thoracic MRI: 1. Normal MRI of the thoracic spine. No evidence of fracture or significant degenerative disc disease. 2. The thoracic spinal cord is normal in signal and caliber. 3. Small bilateral pleural effusions. Lumbar MRI: 1. Moderate facet spondylosis at L4-5 with superimposed 2 mm annular disc bulge. No significant narrowing of the lumbar thecal sac, lateral recesses or neural foramina. 2. Otherwise, normal MRI of the lumbar spine. No significant narrowing of the lumbar thecal sac, lateral recesses or neural foramina. 3. Moderate prominence of the bladder, which is nonspecific. Neuro: M/S: Alert and oriented to person and place Face: EOMI, face and pharynx with normal sensation and function Motor: 4 out of 5 strength in the upper and lower extremities bilaterally Sensation: Normal sensation throughout Speech: Mild dysarthria Cerebel: Unable to assess DTR: Hyperreflexia noted in the upper and lower extremities Critical Care: Excluding all billable procedures Time: 33 minutes Treatments/Evaluations: Close monitoring and treatment of unstable vital signs, cardiorespiratory, and neurologic status, while maintaining tight balance of fluid, respiratory, and cardiac interventions. EMIGDIO MEAD DO Nov 11, 2016 09:43
--- NOTE | 2016-11-11 11:38 | CONS ---
DATE OF ADMISSION: 11/07/2016 DATE OF CONSULTATION: 11/11/2016 TYPE OF CONSULTATION: Neurosurgical. INDICATION FOR CONSULTATION: Weakness. HISTORY OF PRESENT ILLNESS: Patient is a 51-year-old female with a history of depression. The patient had been admitted to a psych facility for a month and a half for suicidal ideations and was discharged in December 2015. From the EMR note the patient's ex- had stated the patient had been expressing suicidal thoughts prior to this. The patient apparently lives with her cousin and was found sleeping on the floor and 911 was called. The patient presumably had an overdose and medications including Fluoxetine and trazodone was found next to the patient. The patient was felt to have had an overdose and was given Narcan. There were reportedly no signs of trauma or drug paraphernalia. The patient was brought to the ER on the and has been here since that time, apparently awaiting transfer to a psychiatric unit. However, during this time, the patient was noted to have had some generalized weakness. It is not clear if the patient has ever been lucid enough to give a good clinical history of her symptoms, though she does apparently wax and wane in her lucidity. Because of these complaints, the patient ultimately had an MRI of the brain, cervical, lumbar and thoracic spine on 11/09/2016. The MRI of the brain was shown to have no acute abnormality with no intracranial hemorrhage, mass lesion , infarct or hydrocephalus, according to the radiologist Gilson Floyd. As well the MRI of the lumbar spine simply showed some mild facet spondylosis at L4 /5 with a 2 mm disk bulge, but no significant narrowing, thecal sac lateral recess or neural foramina and otherwise normal lumbar MRI. The patient's thoracic spine as well was interpreted to be normal with no evidence of fracture or significant degenerative disk disease. The thoracic cord was normal in signal and caliber. The MRI of the cervical spine; however, was reported to show a mild amount of edema in the prevertebral soft tissue spaces as well as the interspinous articulates at L1-2, L2-3, L3-4, L4-5 and concern was raised for possible ligamentous injury. There is no definite evidence of fracture or dislocation. The cervical cord is normal in caliber and signal and no evidence of myelopathic changes. There is moderate spondylosis of C4-5 and C5-6 with subsequent moderate central canal stenosis; at C4-5, the thecal sac measures 7.4 mm and at C5-6 it measures 7.3 mm. There is also noted to have multiple subacute uncovertebral joint spondylosis and severe narrowing at left C4-5 and bilateral C4, C5-6. The patient primarily speaks Romansh and is extremely somnolent. She will awaken intermittently but only whisper and answer some questions. She was able to tell me her age and she would follow some simple commands, though again, given her somnolence the extent of effort is unclear. She does report some neck pain when asked and does report numbness in her hands. She would not answer whether or not she felt weakness or not and it is very difficult to understand or to get her to answer any other questions. PAST MEDICAL HISTORY: Significant for depression and a prior suicide attempt. She does have a history of bronchitis in the past. Other aspects of her clinical history are not known. FAMILY HISTORY: Unknown. SOCIAL HISTORY: The patient is apparently . It is unclear if she smokes or drinks alcohol. MEDICATIONS: Included, it is presumed the patient was taking these medications as prescribed. From the patient's prior admission she was takin. Clonazepam. 2. Fluoxetine. 3. Zyprexa. 4. Trazodone. PHYSICAL EXAMINATION: VITAL SIGNS: Temperature 99, pulse 97, respirations 16, blood pressure 115/67. GENERAL: The patient is a well-developed, well-nourished middle-aged female lying in the hospital bed in no acute distress. HEAD AND NECK: The patient appears normocephalic and atraumatic. She has no mortensen sign, periorbital ecchymoses, otorrhea, or rhinorrhea. She is in a hard cervical collar in neutral position. It is not clear if she has any tenderness given her relative somnolence. CARDIAC: Regular rate and rhythm. LUNGS: Clear to auscultation bilaterally. ABDOMEN: Nontender, nondistended, soft. EXTREMITIES: No clubbing, cyanosis, or edema. VASCULAR: She has 2+ radial and dorsalis pedis pulses and no carotid bruit. MUSCULOSKELETAL: Patient appears to have normal tone and bulk. Her motor exam is difficult to assess. She clearly moves her upper and lower extremities grossly over 4/5 and it is not clear if the patient has weakness or if she has poor effort. She is able to lift her arms but they will drop; however, if you place them over her face she will hold them up. She also will withdraw all her legs to noxious stimuli, and clearly has greater than 4/5 strength in her hip flexors, though it was difficult to assess her quadriceps and plantar strength, though this also appeared to be 4/5. Her gait was not assessed secondary to her current condition. NEUROLOGIC: The patient awakens but quickly falls asleep. She knows her age, but does not know the date. She has poor concentration and attention. Unable to assess her memory. Cranial nerves II through XII were tested though with lack of compliance. Unable to assess visual acuity, but grossly normal. Unable to assess confrontation. III, IV and : Extraocular muscles intact. Pupils equal, reactive, round to light. V: presumably normal facial sensation, though the patient would not answer for testing. VII: Face symmetrical dynamically and statically. VIII: Grossly normal auditory acuity though unable to assess because the patient generally whispers. IX: Symmetrical palate raise. XI: 5/5 sternocleidomastoid. XII: No tongue deviation protruded. The patient's motor exam per musculoskeletal: Patient's deep tendon reflexes appear to be slightly hyperreflexic clearly 3+ in her patella and 2+ in her ankles. She has about 3 beats of clonus bilaterally. She does not clearly have a Babinski or Hemant sign elicitable. Unable to assess the patient's sensation secondary to her noncompliance answering questions; however, again she had expressed that she did feel some numbness in her hands. REVIEW OF RADIOGRAPHIC RESULTS: I reviewed the patient's MRI of the brain, cervical, thoracic and lumbar spine, as reported in the history of present illness. LABORATORY DATA: White count 8.4, hemoglobin 13.4, platelets 266. Coagulation profile is normal with a PT of 13.3, INR of 1.01 and APTT of 29.3. Tox screen was negative. Urinalysis was negative and her sodium 142, BUN and creatinine 16 and 0.72. Alkaline phosphatase slightly elevated at 135. All other labs normal. ASSESSMENT AND PLAN: A 51-year-old female with a possible cervical injury. The patient's clinical condition regarding her neurologic status is unclear. The patient has stenosis radiographically though no evidence of cord signal change. It is unclear if the patient actually has a neurologic deficit or if the patient's symptoms are results of psychiatric issues. However, the patient clearly has some long tract findings including some hyperreflexia and she does report some symptoms that may be consistent with myelopathy or a spinal cord injury. Therefore, it will be assumed that the patient has had some type of spinal cord injury and unless her exam should significantly improve. The patient would appear to have a central cord type injury, though again localization is difficult. She does not appear to have had any bowel or bladder incontinence and has some paresis, though no plegia. There is report of some facet and ligamentous injury on the MRI, though I do not appreciate this as being terribly abnormal and the disk spaces and ALL and PLL appear to be grossly without evidence of injury. RECOMMENDATIONS: Because of the patient's condition, flexion, extension dynamic imaging cannot be performed. I would therefore recommend the followin. The patient stay in a hard cervical collar for stabilization and protection for any type of a potential instability. 2. The patient should be given some steroids that may improve a neurologic deficit that may be related to prior compression. 3. I would treat this similar to a central cord injury and until it is clarified what the patient's neurologic status is, as well as discussion with family members, I do not think it would be indicated to perform a decompressive procedure, although ultimately a decompression at a 2-level ACDF may be reasonable to relieve the stenosis, which may be a reasonable treatment option for the patient. It is not clear if the patient has had any acute deterioration since she has been here for the last 4 days, it is presumed that the patient may have fallen, as she was found down and perhaps sustained this spinal cord injury. The patient will be admitted to the ICU, to steroids and we will attempt to contact the family to obtain further history. Hopefully, the patient's medications can be modified so that she may be more lucid to give a better history. Thank you for allowing us to participate in the care of the patient. Dictated By: ZAK FLOREZ MD, LG/MICHAEL Conf#: [id number] DID#: [id number] COLLEEN
[2016-11-11] MEDS ORDERED: BISACODYL 10 MG SUPP PR PRN (14:00)
[2016-11-11] MEDS ORDERED: ONDANSETRON 4 MG INJ IV PRN (14:00)
[2016-11-11] MEDS ORDERED: MAGNESIUM HYDROXIDE 30ML CUP PO PRN (14:00)
[2016-11-11] MEDS ORDERED: DOCUSATE SODIUM 100 MG CAP PO PRN (14:00)
[2016-11-11] MEDS: DEXAMETHASONE 4 MG/ML 1 ML INJ IV SCH ×2 (16:00→18:04)
[2016-11-11] MEDS ORDERED: PHENYLephrine 20MG IN 250 ML 250 ML ONE (17:15)
[2016-11-11 17:20] LABS: POTASSIUM 4.5 mmol/L (3.5-5.1)
[2016-11-11 17:22] LABS: BASOPHILS % 0.3 % (0.0-2.0); CREATININE 0.62 mg/dl (0.44-1.00); HEMOGLOBIN 13.1 g/dl (12.0-16.0); LYMPHOCYTES # 0.5 10^3/ul (0.8-2.9); LYMPHOCYTES % 13.3 % (15.0-51.0); MEAN CORPUSCULAR HEMOGLOBIN 27.3 pg (29.0-33.0); MEAN CORPUSCULAR HGB CONC 32.8 g/dl (32.0-37.0); MEAN CORPUSCULAR VOLUME 83.3 fl (82.0-101.0); MEAN PLATELET VOLUME 9.9 fl (7.4-10.4); MONOCYTE # 0.2 10^3/ul (0.3-0.9); MONOCYTES % 4.6 % (0.0-11.0); NEUTROPHILS % 81.8 % (39.0-77.0); PLATELET COUNT 231 10^3/UL (140-440); RED CELL DISTRIBUTION WIDTH 13.6 % (11.5-14.5); UNCORRECTED WBC 3.6 10^3/ul (4.8-10.8); WHITE BLOOD COUNT 3.6 10^3/ul (4.8-10.8)
[2016-11-11 17:23] LABS: CALCIUM 9.6 mg/dl (8.4-10.2)
[2016-11-11 17:24] LABS: CONDITION 1
[2016-11-11] MEDS ORDERED: traZODone 100 MG TAB PO SCH (21:00)
[2016-11-11] MEDS: traZODone 100 MG TAB PO SCH (23:05)
[2016-11-12] VITALS (24 sets, daily range): BP systolic 78–114; BP diastolic 55–87; PULSE 63–104; RESP 11–29
[2016-11-12] MEDS: DEXAMETHASONE 4 MG/ML 1 ML INJ IV SCH ×4 (00:34→18:01)
--- NOTE | 2016-11-12 06:08 | HP ---
DATE OF ADMISSION: 11/10/2016 PRIMARY CARE PHYSICIAN: Unknown. CONSULTS ON THIS ADMISSION: Dr. Salas from Neurosurgery. HISTORY OF PRESENT ILLNESS: This is a 51-year-old female with known history of major depressive dis order with unfortunately a suicidal attempt that [facility]. This was back in August. Recently again she was expressing suicidal ideation and actually did attempt to kill herself 3 days ago by taking a bunch of pills fro m what she is reporting. She was brought to the emergency department by her ex-. The patien nikolai when asked today did verbalize that she was suicidal and she did try to kill herself prior to comi ng to the ER because she does not think that life is worth living. This is all in Tongan, but pranay lopez was a pourer buggy ladle at the bedside. The patient reports she took some pills. She does not remember which ones they were. Her urine tox screen here was negative, but it was not a complete urine tox s creen. On admission based on the history at that time and the fact that she was altered and fairly sedated, probably from medication she took, the patient was evaluated by telepsychiatry and was able to gather that she was indeed suicidal and was placed on a [address] [facility]. The patient has been in the emergency department for the past 3 days. [address] tried to place her at [facility] and they were unable to find a facility. In the meantime, the patient started waking up and com plaining of generalized weakness, inability to ambulate. At that time, she was reevaluated by the E R physician. MRIs were ordered of the head, cervical spine, thoracic spine and lumbar spine. She [facility] had her MRI on 11/09/2016 that apparently did not show much of injury except on the cervical s pine MRI, where she was found to have a mild amount of edema in the prevertebral soft tissue as well as interspinous articulations from C1-C2, C2-C3, C3-C4 and C4-C5 with concerns for possible ligamen tous injury, but no fracture, dislocation or myelopathy was observed on this MRI. The patient in meantime was still trying to be placed in a psychiatry facility, and none would take her. Today, the ER physician and after getting the results of the MRI was significantly concerned regarding this ligamentous injury. Neurosurgery was called and evaluated the patient. Unfortunately, she was lonnie aristeo at the time and sleepy. She just got Zyprexa prior. Therefore, the exam was more or less limit ed, but she is moving all 4 extremities. She has some mild weakness and apparently some hyperreflex ia. Therefore, per Dr. Salas, the MRI may not have shown any myelopathic changes at that time, bu t she does have central stenosis and some severe narrowing at C4-C5 that in the right circumstances can cause some myelopathy. Therefore, basically even if the imaging was not showing acute spinal co rd injury, Dr. Salas was unable to rule it out on exam; therefore, he recommended for the patient to be admitted to the intensive care unit, to put her on IV steroids with serial neurological exams and also have a hard C-collar in place. He does not think or feel that the patient needs an emerge nt decompression at this point of the cervical spine but he thinks that she will need it down the [facility] as she does have chronic findings of central stenosis. Ms. Clark is currently in the intensive care unit. She is on one-on-one sitter as she does expres s suicidal ideation. She definitely needs psychiatry care. ALLERGIES: NO KNOWN ALLERGIES. PAST MEDICAL HISTORY: 1. Major depressive disorder with suicidal ideation and suicidal attempt, status post inpatient sta y at [facility] in August and currently also does need inpatient or intensive psychiatri c care as she is still suicidal. 2. Moderate spondylosis C4-C5, C5-C6 with central canal stenosis. PAST SURGICAL HISTORY: Unknown. SOCIAL HISTORY: Unclear. The patient does have an ex- who brought her in. Otherwise, her [facility] situation is not clear. Will have medical social worker inquire. She denies smoking or alcohol use. REVIEW OF SYSTEMS: Very limited. The patient has attempted suicide prior to admission by taking mu ltiple pills. Otherwise, she denies any fevers, chills, nausea, vomiting. She is moving all 4 extr emities and denies any other symptoms besides generalized pain at this point. OUTPATIENT MEDICATIONS: 1. Clonazepam 1 mg p.o. q 8 hours p.r.n. anxiety. 2. Prozac 40 mg p.o. daily. 3. Zyprexa 15 mg p.o. daily. 4. Trazodone 100 mg p.o. at bedtime. PHYSICAL EXAMINATION: VITAL SIGNS: Temperature 99.0, heart rate of 92, sinus rhythm, respiratory rate 20, blood pressure 108/76. The patient is satting 96% on room air. GENERAL: She is alert. She is oriented x3 at least. She is fairly lethargic and she falls back to sleep very easily and somnolent. She does have a C-collar in place. She is moving all 4 extremiti es. HEENT: Pupils are equally round and reactive to light. Extraocular muscles are intact. Anicteric sclerae. NECK: No JVD, no thyromegaly. Again, a C-collar is in place. Mucous membranes are moist. HEART: Regular rate and rhythm. No murmur, rubs, or gallops. LUNGS: Clear to auscultation bilaterally. ABDOMEN: Soft, nontender, nondistended. Bowel sounds are present. EXTREMITIES: No edema, clubbing or cyanosis. NEUROLOGIC: She is moving all 4 extremities. She has 4+/5 muscle strength throughout equally all 4 extremities. I did not detect hyperreflexia, but neurosurgery had a better exam and did detect it. LABORATORY DATA: White blood cell count was 8.4. This was back on 11/07/2016. Hemoglobin 13.4, he matocrit 40.6, platelet count of 266. Chemistry with a sodium of 142, potassium 4.2, chloride 104, bicarbonate 27, BUN 16, creatinine 0.72, glucose of 87, calcium 9.4, total bilirubin 0.7, AST 19, AL T 21, alkaline phosphatase 135. Ammonia less than 9. Cardiac enzymes are within normal. INR is 1. 01, PT 13.3, PTT 29.3. Urinalysis is negative. Urine tox screen was negative on admission. RADIOLOGICAL DATA: 1. Chest x-ray: No acute cardiopulmonary process. 2. CAT scan of the brain, noncontrast: No intracranial hemorrhage or acute intracranial abnormalit ies. 3. MRI of thoracic spine with no acute findings, within normal. 4. MRI of the lumbar spine grossly normal. No acute findings. 5. MRI of the cervical spine is showing mild amount of edema in the prevertebral soft tissue as wel l as interspinous articulation C1-C2, C2-C3, C3-C4 and C4-5; concern is raised for possible ligament ous injury; no definite evidence of fracture or dislocation. The cervical cord is normal in signal and caliber, no evidence of myelopathic changes at this time. Moderate spondylosis at C4-5 and C5-6 with subsequent moderate central stenosis, multilevel facet and intervertebral joint spondylosis wi th severe narrowing of the left C4-5 and bilateral C5-6. 6. Brain MRI showed no acute findings. ASSESSMENT AND PLAN: This is a 51-year-old female with: 1. Status post suicidal attempt by taking a few pills and may have fell according to the patient, she does not remember. Therefore, she may have a mild ligamentous injury with known chronic spinal spondylosis. I have discussed the case with Dr. Salas. To be cautious, he has recommended for the patient to be admitted to the ICU with close neurological monitoring q.1h., neuro checks and IV Dec adron, but there is no emergency to do any decompression as the spinal cord seems to be intact. Dep ending on her course, likely the patient may not need emergent surgery but down the line electively she may need a cervical decompression at one point in the future. She is currently stable, moving a ll 4 extremities. A Boone catheter was placed in the ICU while she is one-on-one sitter because of her underlying psychiatric disease and suicidal attempt. Follow up further neurosurgical recommenda tions tomorrow. 2. Major depressive disorder with suicidal attempt. The patient currently is stable, but she seems to still have suicidal ideation as she told me that she did not feel like that life was worth livin g and she does acknowledge that she did try to kill herself 3 days ago by taking some pills . that s he does not even remember what they are. Based on telepsychiatry evaluation, she was still deemed t o be a danger to herself and place on a 5150 requiring inpatient psychiatric care. Therefore, she h as a 1 on 1 sitter is here in the intensive care unit. I have resumed her medications and will have periodical reevaluation by telepsychiatry in order to reassess her suicide lability and the need fo r inpatient psychiatric care. 3. Prophylaxis: SCDs for DVT prophylaxis. Pepcid for GI prophylaxis. The patient is on regular diet. DISPOSITION: The patient is currently admitted to the ICU due to the frequent neuro checks that she requires. Hopefully she can be downgraded to a lower level of care in the next 24 to 48 hours. Dictated By: JAE DUNNE/MICHAEL Conf#: [id number] DID#: [id number]
[2016-11-12] MEDS: PANTOPRAZOLE 40 MG INJ IV SCH (06:13)
[2016-11-12 06:14] LABS: WHITE BLOOD COUNT 5.3 10^3/ul (4.8-10.8)
[2016-11-12 06:15] LABS: HEMATOCRIT 38.4 % (37.0-47.0); HEMOGLOBIN 12.4 g/dl (12.0-16.0); MEAN CORPUSCULAR HGB CONC 32.3 g/dl (32.0-37.0); MEAN CORPUSCULAR VOLUME 83.7 fl (82.0-101.0); MEAN PLATELET VOLUME 11.4 fl (7.4-10.4); PLATELET COUNT 243 10^3/UL (140-440); RED BLOOD COUNT 4.59 10^6/ul (4.20-5.40); RED CELL DISTRIBUTION WIDTH 13.2 % (11.5-14.5)
[2016-11-12 06:16] LABS: BASOPHILS % 0.2 % (0.0-2.0); LYMPHOCYTES # 0.6 10^3/ul (0.8-2.9); LYMPHOCYTES % 11.8 % (15.0-51.0); MONOCYTE # 0.2 10^3/ul (0.3-0.9); NEUTROPHIL # 4.4 10^3/ul (1.6-7.5); NEUTROPHILS % 83.6 % (39.0-77.0)
[2016-11-12 06:21] LABS: POTASSIUM 4.3 mmol/L (3.5-5.1)
[2016-11-12 06:24] LABS: CREATININE 0.58 mg/dl (0.44-1.00)
[2016-11-12 06:25] LABS: CALCIUM 9.7 mg/dl (8.4-10.2)
[2016-11-12 06:34] LABS: PHOSPHORUS 4.9 mg/dl (2.5-4.9)
[2016-11-12] MEDS: ARIPIPRAZOLE 5 MG TAB PO SCH (09:32)
[2016-11-12] MEDS: OLANZAPINE 5 MG TAB PO SCH (09:32)
[2016-11-12] MEDS: FLUOXETINE 20 MG CAP PO SCH (09:32)
--- NOTE | 2016-11-12 17:13 | CONS ---
Date/Time of Note Date/Time of Note DATE: 11/12/16 TIME: 16:54 Assessment/Plan Assessment/Plan Chief Complaint/Hosp Course 51 year-old female with depression and likely attempted suicide with possible SCI I spoke with a woman who identified herself as the patient's closest friend, Dana Middleton. She stated that the patient does not have any close family and that he ex- generally still will make decisions for her when she is incapacitated. she states that the patient has had three prior suicide attempts. She states that the patient currently has a depressed affect and this is not normal. She states the patient did not report any complaints of weakness previously; she stated that they went to the mall two weeks ago and she seemed normal. It is unclear if the patient is weak due to SCI but she has signs of myelopathy and radiographic stenosis. Given her history and findings, I would recommend surgical decompression and fusion as this risk will not otherwise go away and the patient may suffer a more severe injury next time or continue to develop disability. Determination of the appropriate decision maker for the patient is pending. The patient appears somewhat more lucid and I discussed the need for surgery with her and friend. The patient requested that I speak with he ex- regarding this so I will attempt to do so. Cont. observation and steroids for now. Appears stable. Problems: Consultation Date/Type/Reason Admit Date/Time Nov 10, 2016 at 09:38 Initial Consult Date Type of Consultation: Neurosurgery 24 HR Interval Summary Free Text/Dictation Patient appears a bit more lucid but still with depressed cognition. The patient 's history appears somewhat unreliable as she gives conflicting history regarding her symptoms. Exam/Review of Systems Vital Signs Vitals Vital Signs Date Time Temp Pulse Resp B/P Pulse Ox O2 Delivery O2 Flow Rate FiO2 11/12/16 16:00 98.0 67 15 105/69 97 11/12/16 00:00 Room Air Intake and Output 11/11/16 11/11/16 11/12/16 15:00 23:00 07:00 Intake Total 300 ml 0 ml Output Total 1180 ml 260 ml Balance -880 ml -260 ml Exam Constitutional: alert 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: other (the patient is awake and will follow some commands but somnulent and will often not follow through. Unclear the extent of weakness that the patient has as she does seem to move her arms and legs grossly normally with > 4+/5 strength but very slowly. She does however have diffusely brisk reflexes though no clear Babinski or Wallace's sign. ) Results Result Diagram: 11/12/16 0515 11/12/16 0515 Results 24 hrs Laboratory Tests Test 11/12/16 05:15 Anion Gap 18 H Basophils # 0.0 Basophils % 0.2 Blood Urea Nitrogen 15 Calcium Level 9.7 Carbon Dioxide Level 25 Chloride Level 103 Creatinine 0.58 Eosinophils # 0.0 Eosinophils % 0.0 Glucose Level 124 Hematocrit 38.4 Hemoglobin 12.4 Lymphocytes # 0.6 L Lymphocytes % 11.8 L Magnesium Level 2.0 Mean Corpuscular Hemoglobin 27.0 L Mean Corpuscular Hemoglobin Concent 32.3 Mean Corpuscular Volume 83.7 Mean Platelet Volume 11.4 H Monocytes # 0.2 L Monocytes % 4.0 Neutrophils # 4.4 Neutrophils % 83.6 H Nucleated Red Blood Cells # 0.0 Nucleated Red Blood Cells % 0.0 Phosphorus Level 4.9 Platelet Count 243 Potassium Level 4.3 Red Blood Count 4.59 Red Cell Distribution Width 13.2 Sodium Level 142 White Blood Count 5.3 # Medications Medications Current Medications Naloxone HCl (Narcan) 0.4 mg Q2M PRN IV LETHARGY Last administered on 12:05; Admin Dose 0.4 MG; Start 11/07/16 at 12:00 Aripiprazole (Abilify) 5 mg DAILY PO Last administered on 11/12/16 09:32; Admin Dose 5 MG; Start 11/08/16 at 13:00 Clonazepam (Klonopin) 1 mg Q8H PRN PO ANXIETY; Start 11/11/16 at 14:00 Fluoxetine HCl (Prozac) 40 mg DAILY PO Last administered on 11/12/16 09:32; Admin Dose 40 MG; Start 11/12/16 at 09:00 Olanzapine (Zyprexa) 15 mg DAILY PO Last administered on 11/12/16 09:32; Admin Dose 15 MG; Start 11/12/16 at 09:00 Dexamethasone (Decadron) 4 mg Q6 IV Last administered on 11/12/16 12:02; Admin Dose 4 MG; Start 11/11/16 at 16:00 Ondansetron HCl (Zofran Inj) 4 mg Q6H PRN IV NAUSEA AND/OR VOMITING; Start 11/11 at 14:00 Acetaminophen (Tylenol Tab) 650 mg Q6H PRN PO PAIN LEVEL 1-3 OR FEVER; Start at 14:00 Acetaminophen/ Hydrocodone Bitart ([place] (5/325)) 1 tab Q6H PRN PO PAIN LEVEL 4 -6; Start 11/11/16 at 14:00 Docusate Sodium (Colace) 100 mg Q12H PRN PO CONSTIPATION; Start 11/11/16 at 14: 00 Magnesium Hydroxide (Milk Of Mag) 30 ml DAILY PRN PO CONSTIPATION; Start at 14:00 Bisacodyl (Dulcolax Supp) 10 mg DAILY PRN [place] CONSTIPATION; Start 11/11/16 at 14: 00 Pantoprazole (Protonix Iv) 40 mg DAILY@06 IV Last administered on 11/12/16 06: 13; Admin Dose 40 MG; Start 11/12/16 at 06:00 Trazodone HCl (Desyrel) 100 mg QHS PO Last administered on 11/11/16 23:05; Admin Dose 100 MG; Start 11/12/16 at 21:00 ZAK FLOREZ MD Nov 12, 2016 17:12
--- NOTE | 2016-11-12 18:31 | PN ---
Date/Time of Note Date/Time of Note DATE: 11/12/16 TIME: 18:31 Assessment/Plan VTE Prophylaxis VTE Prophylaxis Intervention: SCD's Lines/Catheters IV Catheter Type (from Nrs): Saline Lock Urinary Cath still in place: Yes Reason Cath still needed: other (indicate) (immobility) Assessment/Plan Assessment/Plan [facility] 1. 51-year-old patient of Dr. Juan Jose Ryan with putative suicidal pill ingestion attempt, though urine tox screen for drugs of abuse and alcohol was negative and patient couldn't recall what pills she took. She was placed on a 5150 hold awaiting inpatient psychiatry placement. Now hospital day 5, including three days she spent in the ER. My thanks to Dr. Mandel for her thorough evaluation. * Resume Zyprexa 10mg PO QHS and clonazepam PO BID, as recommended by Psychiatry * Trial of Wellbutrin XL 2. She has generalized weakness and ataxia. History of diffuse pain and poor sleep, suggestive of a pain amplification syndrome. MRI of the cervical spine indicated mild edema in the prevertebral soft tissue as well as adjacent to the interspinous articulations from C1/2, C2/3, C3/4 and C4/[address] Pastor Salas (Neurosurgery) was concerned about the moderate central stenosis at C3/4 and C4/5, and recommended admission to the ICU for intravenous Decadron, serial neurologic exams, and a hard cervical collar. My review of the films suggests an early diffuse spondylosis with possible arthritis of the interspinous joints. I discussed the case tonight with Dr. Salas, who believes decompression will be necessary. Brain MRI was normal. 3. Moderate facet spondylosis at L4-5 with superimposed 2 mm annular disc bulge on lumbar spine MRI. 4. Prophylaxis: SCDs for DVT prevention. Pepcid for GI prophylaxis. 5. DISPOSITION: Currently admitted to ICU due to frequent neuro checks. * Anticipate downgrade to Med/Surg tomorrow if stable and improving, with continued sitter. * We talked about setting up a conference with her former (power of contract attorney, apparently) to discuss clinical decision-making. Kelli Lane MD PhD [phone] Subjective 24 Hr Interval Summary Free Text/Dictation Sitter present; no other visitors. Patient speaking in Kiswahili with cervical collar in place, with difficulty articulating. But denied any headache or other pain, nausea, or dyspnea. Exam/Review of Systems Vital Signs Vitals Vital Signs Date Time Temp Pulse Resp B/P Pulse Ox O2 Delivery O2 Flow Rate FiO2 11/12/16 18:00 78 11 106/87 98 11/12/16 16:00 98.0 11/12/16 00:00 Room Air Intake and Output 11/11/16 11/11/16 11/12/16 14:59 22:59 06:59 Intake Total 300 ml 0 ml Output Total 1150 ml 290 ml Balance -850 ml -290 ml Exam GENERAL: Alert, difficult to tell level of comprehension. HEENT: Her pupils were equal, round and reactive to light. Extraocular muscles are intact. Anicteric sclerae, with no conjunctival injection. NECK: No JVD, no thyromegaly. Mucous membranes are moist. Cervical collar in place. HEART: Regular rhythm, normal rate. No murmur or rub. Symmetric peripheral pulses. LUNGS: Clear to auscultation bilaterally, with good air movement on room air. ABDOMEN: Soft, non-tender, non-distended, no HSM. Bowel sounds present. EXTREMITIES: No edema, clubbing or cyanosis. No juan arthritis. NEUROLOGIC: Moving all 4 extremities, with 4+/5 strength. Trace patellar reflexes. 4-beat clonus bilaterally. 3+ patellar and biceps DTRs. Toes downgoing. Results Result Diagram: 11/12/16 0515 11/12/16 0515 Results 24 hrs Laboratory Tests Test 11/12/16 05:15 Anion Gap 18 H Basophils # 0.0 Basophils % 0.2 Blood Urea Nitrogen 15 Calcium Level 9.7 Carbon Dioxide Level 25 Chloride Level 103 Creatinine 0.58 Eosinophils # 0.0 Eosinophils % 0.0 Glucose Level 124 Hematocrit 38.4 Hemoglobin 12.4 Lymphocytes # 0.6 L Lymphocytes % 11.8 L Magnesium Level 2.0 Mean Corpuscular Hemoglobin 27.0 L Mean Corpuscular Hemoglobin Concent 32.3 Mean Corpuscular Volume 83.7 Mean Platelet Volume 11.4 H Monocytes # 0.2 L Monocytes % 4.0 Neutrophils # 4.4 Neutrophils % 83.6 H Nucleated Red Blood Cells # 0.0 Nucleated Red Blood Cells % 0.0 Phosphorus Level 4.9 Platelet Count 243 Potassium Level 4.3 Red Blood Count 4.59 Red Cell Distribution Width 13.2 Sodium Level 142 White Blood Count 5.3 # Medications Medications Current Medications Naloxone HCl (Narcan) 0.4 mg Q2M PRN IV LETHARGY Last administered on 12:05; Admin Dose 0.4 MG; Start 11/07/16 at 12:00 Aripiprazole (Abilify) 5 mg DAILY PO Last administered on 11/12/16 09:32; Admin Dose 5 MG; Start 11/08/16 at 13:00 Clonazepam (Klonopin) 1 mg Q8H PRN PO ANXIETY; Start 11/11/16 at 14:00 Fluoxetine HCl (Prozac) 40 mg DAILY PO Last administered on 11/12/16 09:32; Admin Dose 40 MG; Start 11/12/16 at 09:00 Olanzapine (Zyprexa) 15 mg DAILY PO Last administered on 11/12/16 09:32; Admin Dose 15 MG; Start 11/12/16 at 09:00 Dexamethasone (Decadron) 4 mg Q6 IV Last administered on 11/12/16 18:01; Admin Dose 4 MG; Start 11/11/16 at 16:00 Ondansetron HCl (Zofran Inj) 4 mg Q6H PRN IV NAUSEA AND/OR VOMITING; Start 11/11 at 14:00 Acetaminophen (Tylenol Tab) 650 mg Q6H PRN PO PAIN LEVEL 1-3 OR FEVER; Start at 14:00 Acetaminophen/ Hydrocodone Bitart ([place] (5/325)) 1 tab Q6H PRN PO PAIN LEVEL 4 -6; Start 11/11/16 at 14:00 Docusate Sodium (Colace) 100 mg Q12H PRN PO CONSTIPATION; Start 11/11/16 at 14: 00 Magnesium Hydroxide (Milk Of Mag) 30 ml DAILY PRN PO CONSTIPATION; Start at 14:00 Bisacodyl (Dulcolax Supp) 10 mg DAILY PRN [place] CONSTIPATION; Start 11/11/16 at 14: 00 Pantoprazole (Protonix Iv) 40 mg DAILY@06 IV Last administered on 11/12/16 06: 13; Admin Dose 40 MG; Start 11/12/16 at 06:00 Trazodone HCl (Desyrel) 100 mg QHS PO Last administered on 11/11/16 23:05; Admin Dose 100 MG; Start 11/12/16 at 21:[address] M.D. Nov 12, 2016 18:31 at 14:00 Acetaminophen/ Hydrocodone Bitart ([place] (5/325)) 1 tab Q6H PRN PO PAIN LEVEL 4 -6; Start 11/11/16 at 14:00 Docusate Sodium (Colace) 100 mg Q12H PRN PO CONSTIPATION; Start 11/11/16 at 14: 00 Magnesium Hydroxide (Milk Of Mag) 30 ml DAILY PRN PO CONSTIPATION; Start at 14:00 Bisacodyl (Dulcolax Supp) 10 mg DAILY PRN [place] CONSTIPATION; Start 11/11/16 at 14: 00 Pantoprazole (Protonix Iv) 40 mg DAILY@06 IV Last administered on 11/12/16 06: 13; Admin Dose 40 MG; Start 11/12/16 at 06:00 Trazodone HCl (Desyrel) 100 mg QHS PO Last administered on 11/11/16 23:05; Admin Dose 100 MG; Start 11/12/16 at 21:[address] M.D. Nov 12, 2016 18:31
[2016-11-12] MEDS: traZODone 100 MG TAB PO SCH (20:21)
[2016-11-12] MEDS: ACETAMINOPHEN 325 MG TAB PO PRN (20:21)
[2016-11-13] VITALS (18 sets, daily range): BP systolic 98–135; BP diastolic 46–80; PULSE 53–84; RESP 15–23
[2016-11-13] MEDS: DEXAMETHASONE 4 MG/ML 1 ML INJ IV SCH ×2 (00:29→06:26)
[2016-11-13] MEDS: PANTOPRAZOLE 40 MG INJ IV SCH (06:26)
[2016-11-13] MEDS: ARIPIPRAZOLE 5 MG TAB PO SCH (08:26)
[2016-11-13] MEDS: FLUOXETINE 20 MG CAP PO SCH (08:26)
[2016-11-13] MEDS: OLANZAPINE 5 MG TAB PO SCH (08:26)
--- NOTE | 2016-11-13 09:51 | CONS ---
Date/Time of Note Date/Time of Note DATE: 11/13/16 TIME: 09:44 Assessment/Plan Assessment/Plan Chief Complaint/Hosp Course 51 year-old female with depression and likely attempted suicide with possible SCI Has myelopathy and stenosis, recommend decompression. D/c shamar Brown with Medrol dose pack. Attempt to call ex- Rakan Valiente but did not answer after multiple attempts. Need Psych to establish competency for decision making or determine who has legal decision making capacity for patient. Stable for transfer to floor. Cont. hard cervical collar. Problems: Consultation Date/Type/Reason Admit Date/Time Nov 10, 2016 at 09:38 Type of Consultation: Neurosurgery 24 HR Interval Summary Free Text/Dictation Patient seems more lucid today, voice stronger, less somnulent but still flat affect. Denies numbness, tingling, weakness or neck pain but then will state she has neck pain so unclear. Exam/Review of Systems Vital Signs Vitals Vital Signs Date Time Temp Pulse Resp B/P Pulse Ox O2 Delivery O2 Flow Rate FiO2 11/13/16 08:00 97.6 84 20 135/75 96 Room Air Intake and Output 11/12/16 11/12/16 11/13/16 15:00 23:00 07:00 Intake Total 740 ml 1020 ml 260 ml Output Total 200 ml 345 ml 275 ml Balance 540 ml 675 ml -15 ml Exam 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: REJECT OPENER II-XII intact (increased DTRs diffusely, 3 beats of clonus. grossly moves U/LE minimally less than 5/5 for me but unclear if effort related or neurological weakness) Results Result Diagram: 11/12/16 0515 11/12/16 0515 Medications Medications Current Medications Naloxone HCl (Narcan) 0.4 mg Q2M PRN IV LETHARGY Last administered on 12:05; Admin Dose 0.4 MG; Start 11/07/16 at 12:00 Aripiprazole (Abilify) 5 mg DAILY PO Last administered on 11/13/16 08:26; Admin Dose 5 MG; Start 11/08/16 at 13:00 Clonazepam (Klonopin) 1 mg Q8H PRN PO ANXIETY; Start 11/11/16 at 14:00 Fluoxetine HCl (Prozac) 40 mg DAILY PO Last administered on 11/13/16 08:26; Admin Dose 40 MG; Start 11/12/16 at 09:00 Olanzapine (Zyprexa) 15 mg DAILY PO Last administered on 11/13/16 08:26; Admin Dose 15 MG; Start 11/12/16 at 09:00 Dexamethasone (Decadron) 4 mg Q6 IV Last administered on 11/13/16 06:26; Admin Dose 4 MG; Start 11/11/16 at 16:00 Ondansetron HCl (Zofran Inj) 4 mg Q6H PRN IV NAUSEA AND/OR VOMITING; Start 11/11 at 14:00 Acetaminophen (Tylenol Tab) 650 mg Q6H PRN PO PAIN LEVEL 1-3 OR FEVER Last administered on 11/12/16 20:21; Admin Dose 650 MG; Start 11/11/16 at 14:00 Acetaminophen/ Hydrocodone Bitart ([place] (5/325)) 1 tab Q6H PRN PO PAIN LEVEL 4 -6; Start 11/11/16 at 14:00 Docusate Sodium (Colace) 100 mg Q12H PRN PO CONSTIPATION; Start 11/11/16 at 14: 00 Magnesium Hydroxide (Milk Of Mag) 30 ml DAILY PRN PO CONSTIPATION; Start at 14:00 Bisacodyl (Dulcolax Supp) 10 mg DAILY PRN [place] CONSTIPATION; Start 11/11/16 at 14: 00 Pantoprazole (Protonix Iv) 40 mg DAILY@06 IV Last administered on 11/13/16 06: 26; Admin Dose 40 MG; Start 11/12/16 at 06:00 Trazodone HCl (Desyrel) 100 mg QHS PO Last administered on 11/12/16 20:21; Admin Dose 100 MG; Start 11/12/16 at 21:00 ZAK FLOREZ MD Nov 13, 2016 09:51
[2016-11-13] MEDS ORDERED: METHYLPREDNISOLONE (MEDROL) DOSE PACK PO SCH (10:00)
--- NOTE | 2016-11-13 10:00 | PN ---
Date/Time of Note Date/Time of Note DATE: 11/13/16 TIME: 10:00 Assessment/Plan VTE Prophylaxis VTE Prophylaxis Intervention: SCD's Lines/Catheters IV Catheter Type (from [facility] Saline Lock Urinary Cath still in place: No Assessment/Plan Assessment/Plan [facility] 1. 51-year-old patient who says today that she attempted suicide with a pill ingestion the beginning of last week. Still expressing hopelessness about the future, but says she wants to get better. Urine tox screen for drugs of abuse and alcohol was negative. Now hospital day 6, including three days she spent in the ER. * Continue Zyprexa 10mg PO QHS and clonazepam PO BID, as recommended by Psychiatry * Trial of Wellbutrin XL * Discontinue Boone catheter * Fall precautions discussed with the patient and her 2. Generalized weakness, but no history of radicular pain or ataxia. She has poor sleep quality, and takes a sleeping aid at home. No fibromyalgia tender points on exam today. Proximal muscle strength mildly impaired, but distal strength intact. MRI of the cervical spine showed mild edema in the prevertebral soft tissue as well as adjacent to the interspinous articulations from C1/2, C2/3, C3/4 and C4/5 with no myelopathy. But her exam today shows clear ataxia, with inability to heel- or toe-walk. Also with 3+ patellar and biceps reflexes. Discussed again this afternoon with Dr. Pastor Salas ( Neurosurgery). * Recommending decompression surgery for moderate central stenosis at C3/4 and C4/5. Dr. Salas will discuss with the . * Discontinue telemetry and transfer to Med/Surg. * Switched today from Decadron to Solu-Medrol dose pack. * Will obtain flexion and extension views of the cervical spine to determine whether she has instability that requires continued use of the cervical collar. * I suggested obtaining Neurology consultation, and Dr. Harlan Arias has agreed to see her tomorrow. 3. Moderate facet spondylosis at L4-5 with superimposed 2 mm annular disc bulge on lumbar spine MRI, but no history of low back pain or radicular pain. 4. Prophylaxis: SCDs for DVT prevention. Pepcid for GI prophylaxis. 5. DISPOSITION: * Full-Code * Transfer to Med/Surg, with continued sitter. * Will need psychiatry clearance for ability to consent to surgery, and express understanding of the potential benefits and recuperation period afterward. Kelli Lane MD PhD [phone] Subjective 24 Hr Interval Summary Free Text/Dictation Long conversation with Ms. Clark and her . She denied any pain, including headache or neck pain. She has no chronic neck or back pain issues. Some generalized weak feeling this past week, but no tripping. No dropping things, and she is able to feed herself. She had a fall at home six days ago after using the toilet. She is right-handed, but has had difficulty using the left arm due to pain in the left deltoid region following receiving Zyprexa shots there since mid-September. 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 She and her have been since 2011. She is from [place]; he is from [facility]. They have a 22-year- old daughter who lives in [place]. She is living currently with a cousin, who found her on the ground last Monday and called her , who in turn called 911. Exam/Review of Systems Vital Signs Vitals Vital Signs Date Time Temp Pulse Resp B/P Pulse Ox O2 Delivery O2 Flow Rate FiO2 11/13/16 08:00 97.6 84 20 135/75 96 Room Air Intake and Output 11/12/16 11/12/16 11/13/16 15:00 23:00 07:00 Intake Total 740 ml 1020 ml 260 ml Output Total 200 ml 345 ml 275 ml Balance 540 ml 675 ml -15 ml Exam GENERAL: Alert, slight mumbling but clear comprehension. Negative affect. HEENT: Her pupils were equal, round and reactive to light. Extraocular muscles are intact. Anicteric sclerae, with no conjunctival injection. NECK: No JVD, no thyromegaly. Mucous membranes are moist. Cervical collar in place. HEART: Regular rhythm, normal rate. No murmur or rub. Symmetric peripheral pulses. LUNGS: Clear to auscultation bilaterally, with good air movement on room air. ABDOMEN: Soft, non-tender, non-distended, no HSM. Bowel sounds present. EXTREMITIES: No edema, clubbing or cyanosis. No juan arthritis. NEUROLOGIC: Careful motor exam showed proximal 4+/5 strength, 5/5 distal in all four extremities. Trace patellar reflexes. 4-beat clonus bilaterally. 3+ patellar and biceps DTRs. Toes downgoing. Gait was stable, but she was completely unable to toe-walk, and had moderately unstable heel-walking. Results Result Diagram: 11/12/1651411/12/16514 Medications Medications Current Medications Naloxone HCl (Narcan) 0.4 mg Q2M PRN IV LETHARGY Last administered on 12:05; Admin Dose 0.4 MG; Start 11/07/16 at 12:00 Aripiprazole (Abilify) 5 mg DAILY PO Last administered on 11/13/16 08:26; Admin Dose 5 MG; Start 11/08/16 at 13:00 Clonazepam (Klonopin) 1 mg Q8H PRN PO ANXIETY; Start 11/11/16 at 14:00 Fluoxetine HCl (Prozac) 40 mg DAILY PO Last administered on 11/13/16 08:26; Admin Dose 40 MG; Start 11/12/16 at 09:00 Olanzapine (Zyprexa) 15 mg DAILY PO Last administered on 11/13/16 08:26; Admin Dose 15 MG; Start 11/12/16 at 09:00 Dexamethasone (Decadron) 4 mg Q6 IV Last administered on 11/13/16 06:26; Admin Dose 4 MG; Start 11/11/16 at 16:00 Ondansetron HCl (Zofran Inj) 4 mg Q6H PRN IV NAUSEA AND/OR VOMITING; Start 11/11 at 14:00 Acetaminophen (Tylenol Tab) 650 mg Q6H PRN PO PAIN LEVEL 1-3 OR FEVER Last administered on 11/12/16 20:21; Admin Dose 650 MG; Start 11/11/16 at 14:00 Acetaminophen/ Hydrocodone Bitart ([place] (5/325)) 1 tab Q6H PRN PO PAIN LEVEL 4 -6; Start 11/11/16 at 14:00 Docusate Sodium (Colace) 100 mg Q12H PRN PO CONSTIPATION; Start 11/11/16 at 14: 00 Magnesium Hydroxide (Milk Of Mag) 30 ml DAILY PRN PO CONSTIPATION; Start at 14:00 Bisacodyl (Dulcolax Supp) 10 mg DAILY PRN [place] CONSTIPATION; Start 11/11/16 at 14: 00 Pantoprazole (Protonix Iv) 40 mg DAILY@06 IV Last administered on 11/13/16 06: 26; Admin Dose 40 MG; Start 11/12/16 at 06:00 Trazodone HCl (Desyrel) 100 mg QHS PO Last administered on 11/12/16 20:21; Admin Dose 100 MG; Start 11/12/16 at 21:[address] M.D. Nov 13, 2016 10:00
[2016-11-13] MEDS ORDERED: METHYLPREDNISOLONE 4 MG TAB PO SCH (10:30)
--- NOTE | 2016-11-13 17:40 | RADRPT ---
PROCEDURE: XR Cervical Spine. CLINICAL INDICATION: Abnormal cervical spine MRI TECHNIQUE: AP odontoid views of the cervical spine were obtained supplemented with lateral project ions in the flexion, neutral and extension positions. COMPARISON: MRI cervical spine 11/09/2016 FINDINGS: Mineralization is within normal limits. No fracture or osseous lesion is identified. Vertebral bod ies are normal in height. Cervical lordosis is preserved. No vertebral subluxation is seen, there is no change in relationship between the vertebral bodies between the neutral, flexion and extension positions to suggest instability. Intervertebral discs are degenerated and narrowed at the C5-6 an d C6-7. Facet joints appear maintained. Prevertebral soft tissues, predental space and atlantoaxia l joint are unremarkable. RPTAT:HJJR IMPRESSION: 1. Flexion and extension views of the cervical spine show no evidence of subluxation to suggest cer vical instability. 2. Degenerative disk disease most pronounced at C5-6 and C6-7 is again noted. Physician Beck Date Time Electronically viewed and signed by Physician Beck on 11/13/2016 17:40 /
[2016-11-13] MEDS: traZODone 100 MG TAB PO SCH (21:38)
[2016-11-14 08:00] VITALS: BP 100/55; RESP 20
[2016-11-14] MEDS ORDERED: INFLUENZA VIRUS VACCINE 0.5 ML SYG IM* ONE (08:00)
[2016-11-14] MEDS: METHYLPREDNISOLONE 4 MG TAB PO SCH ×3 (08:11→18:07)
[2016-11-14] MEDS: OLANZAPINE 5 MG TAB PO SCH (08:12)
[2016-11-14] MEDS: PANTOPRAZOLE (EC) 40 MG TAB PO SCH (08:12)
[2016-11-14] MEDS: FLUOXETINE 20 MG CAP PO SCH (08:13)
--- NOTE | 2016-11-14 08:18 | CONS ---
Date/Time of Note Date/Time of Note DATE: 11/14/16 TIME: 08:10 Assessment/Plan Assessment/Plan Chief Complaint/Hosp Course 51 year-old female with depression and likely attempted suicide with cervical stenosis and myelopathy. Spoke with this AM. I discussed the indications, risk, benefits and alternatives of surgical treatment with the patient and her individually.He agreed with surgical treatment. Patient wants to speak with today.Will try to ad to schedule for tomorrow- C4-5,C5-6 ACDF. I Flex/ex C-spine xrays did not show instability- therefore can D/C hard cervical collar. Problems: Consultation Date/Type/Reason Admit Date/Time Nov 10, 2016 at 09:38 Type of Consultation: Neurosurgery 24 HR Interval Summary Free Text/Dictation Patient stable. Denies neck pain, numbness, tingling or weakness at this time. Still flat affect but no longer somnolent and can engage in conversation. 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 Has diffuse hyperreflexia.) Results Result Diagram: 11/12/1615 11/12/16 0515 Medications Medications Current Medications Naloxone HCl (Narcan) 0.4 mg Q2M PRN IV LETHARGY Last administered on 12:05; Admin Dose 0.4 MG; Start 11/07/16 at 12:00 Clonazepam (Klonopin) 1 mg Q8H PRN PO ANXIETY; Start 11/11/16 at 14:00 Fluoxetine HCl (Prozac) 40 mg DAILY PO Last administered on 11/13/16 08:26; Admin Dose 40 MG; Start 11/12/16 at 09:00 Olanzapine (Zyprexa) 15 mg DAILY PO Last administered on 11/13/16 08:26; Admin Dose 15 MG; Start 11/12/16 at 09:00 Ondansetron HCl (Zofran Inj) 4 mg Q6H PRN IV NAUSEA AND/OR VOMITING; Start 11/11 at 14:00 Acetaminophen (Tylenol Tab) 650 mg Q6H PRN PO PAIN LEVEL 1-3 OR FEVER Last administered on 11/12/16 20:21; Admin Dose 650 MG; Start 11/11/16 at 14:00 Acetaminophen/ Hydrocodone Bitart ([place] (5/325)) 1 tab Q6H PRN PO PAIN LEVEL 4 -6; Start 11/11/16 at 14:00 Docusate Sodium (Colace) 100 mg Q12H PRN PO CONSTIPATION; Start 11/11/16 at 14: 00 Magnesium Hydroxide (Milk Of Mag) 30 ml DAILY PRN PO CONSTIPATION; Start at 14:00 Bisacodyl (Dulcolax Supp) 10 mg DAILY PRN [place] CONSTIPATION; Start 11/11/16 at 14: 00 Trazodone HCl (Desyrel) 100 mg QHS PO Last administered on 11/13/16 21:38; Admin Dose 100 MG; Start 11/12/16 at 21:00 Pantoprazole (Protonix Tab) 40 mg DAILY@09 PO ; Start 11/14/16 at 09:00 Methylprednisolone (Medrol) 8 mg HS PO ; Start 11/14/16 at 21:00; Stop 11/14/16 at 21:01 Methylprednisolone (Medrol) 4 mg HS PO ; Start 11/15/16 at 21:00; Stop 11/17/16 at 21:01 ZAK FLOREZ MD Nov 14, 2016 08:18
--- NOTE | 2016-11-14 13:21 | PN ---
Date/Time of Note Date/Time of Note DATE: 11/14/16 TIME: 13:07 Assessment/Plan VTE Prophylaxis VTE Prophylaxis Intervention: SCD's Lines/Catheters IV [facility] (from [facility] Saline Lock Urinary Cath still in place: No Assessment/Plan Assessment/Plan This is a 51-year-old female with: 1. Cervical spine spinal stenosis with myelopathy with known chronic spinal spondylosis. Patient with some weakness of extremities LUE>RUE or LE and also still with Ataxia On steroids and per Neurosurgery, Dr. Salas, would benefit from C4-5,C5-6 ACDF. The patient wants to talk to her prior to possible consenting to the procedure On Steroids. 2. Major depressive disorder with suicidal attempt. The patient currently is stable. She did not express any suicidal ideation today On a hold per psych and back on her meds Continue 1:1 sitter. May need inpatient psychiatric care at discharge. Prophylaxis: SCDs for DVT prophylaxis. Pepcid for GI prophylaxis. DISPOSITION: Med Surg, continue Neuro checks. Subjective 24 Hr Interval Summary Free Text/Dictation Patient somewhat better from psychiatric standpoint, no suicidal ideation, still some feeling of hopelessness but is considering surgical procedure because do want to get better Exam/Review of Systems Vital Signs Vitals Vital Signs Date Time Temp Pulse Resp B/P Pulse Ox O2 Delivery O2 Flow Rate FiO2 11/14/16 08:00 98.5 70 20 100/55 94 11/13/16 17:48 Room Air Intake and Output 11/13/16 11/13/16 11/14/16 15:00 23:00 07:00 Intake Total 500 ml 150 ml 820 ml Output Total 380 ml 150 ml 780 ml Balance 120 ml 0 ml 40 ml Exam Constitutional: alert, frail, oriented Psych: depression Respiratory: clear to auscultation, normal air movement Cardiovascular: nl pulses, regular rate and rhythm Gastrointestinal: non-tender, soft Musculoskeletal: nl extremities to inspection, other (no edema, clubbing or cyanosis ) Extremities: normal pulses 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: 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, nl mental status, nl speech, other (weakness and ataxia ) Results Result Diagram: 11/12/1651411/12/16514 Medications Medications Current Medications Naloxone HCl (Narcan) 0.4 mg Q2M PRN IV LETHARGY Last administered on 12:05; Admin Dose 0.4 MG; Start 11/07/16 at 12:00 Clonazepam (Klonopin) 1 mg Q8H PRN PO ANXIETY; Start 11/11/16 at 14:00 Fluoxetine HCl (Prozac) 40 mg DAILY PO Last administered on 11/14/16 08:13; Admin Dose 40 MG; Start 11/12/16 at 09:00 Olanzapine (Zyprexa) 15 mg DAILY PO Last administered on 11/14/16 08:12; Admin Dose 15 MG; Start 11/12/16 at 09:00 Ondansetron HCl (Zofran Inj) 4 mg Q6H PRN IV NAUSEA AND/OR VOMITING; Start 11/11 at 14:00 Acetaminophen (Tylenol Tab) 650 mg Q6H PRN PO PAIN LEVEL 1-3 OR FEVER Last administered on 11/12/16 20:21; Admin Dose 650 MG; Start 11/11/16 at 14:00 Acetaminophen/ Hydrocodone Bitart ([place] (5/325)) 1 tab Q6H PRN PO PAIN LEVEL 4 -6; Start 11/11/16 at 14:00 Docusate Sodium (Colace) 100 mg Q12H PRN PO CONSTIPATION; Start 11/11/16 at 14: 00 Magnesium Hydroxide (Milk Of Mag) 30 ml DAILY PRN PO CONSTIPATION; Start at 14:00 Bisacodyl (Dulcolax Supp) 10 mg DAILY PRN [place] CONSTIPATION; Start 11/11/16 at 14: 00 Trazodone HCl (Desyrel) 100 mg QHS PO Last administered on 11/13/16 21:38; Admin Dose 100 MG; Start 11/12/16 at 21:00 Pantoprazole (Protonix Tab) 40 mg DAILY@09 PO Last administered on 11/14/16 08: 12; Admin Dose 40 MG; Start 11/14/16 at 09:00 Methylprednisolone (Medrol) 8 mg HS PO ; Start 11/14/16 at 21:00; Stop 11/14/16 at 21:01 Methylprednisolone (Medrol) 4 mg HS PO ; Start 11/15/16 at 21:00; Stop 11/17/16 at 21:01 JAE FERRARO Nov 14, 2016 13:18
[2016-11-14 19:00] VITALS: BP 113/59; RESP 19
[2016-11-14] MEDS: traZODone 100 MG TAB PO SCH (20:37)
[2016-11-14] MEDS ORDERED: METHYLPREDNISOLONE 4 MG TAB PO SCH (21:00)
--- NOTE | 2016-11-14 21:25 | CONS ---
DATE OF ADMISSION: 11/10/2016 DATE OF CONSULTATION: 11/14/2016 TYPE OF CONSULTATION: Neurology. Thank you, Dr. Lane for your kind referral for evaluation of cervical myelopathy. HISTORY OF PRESENT ILLNESS: The patient is a 51-year-old lady with past medical history of severe depression, who was admitted following an overdose of some of her antidepressant medication either fluoxetine or trazodone. Was found on the floor sleeping and confused and on admission she is drowsy with slurred speech. After several days the patient's encephalopathy resolved, but she was noted to be very weak. She had MRI imaging of the neural axis, normal MRI of the brain and MRI of the cervical spine shows mild edema in the prevertebral soft tissues as well as edema of the interspinous articulation C1-2 , 2-3, 3-4 and 4-5, possible ligamentous injury. No evidence for fracture or dislocations, normal cervical cord, moderate cervical stenosis C4-5, 5-6 and severe narrowing C4-5 and bilateral 5-6 foramina. MRI of the lumbar spine shows moderate fossa spondylosis L4-5 with 2 mm disk bulge. The patient was put on steroids by a neurosurgeon who suggested to perform C4-5 , 5-6 ACDF. The patient stated that she was not weak prior to admission. She is getting slightly better now. The patient's is at bedside providing details of the history. She claims to have urinary frequency, but no other bowel or bladder problems. She states that she is weak but not numb. ALLERGIES: NONE. SOCIAL HISTORY: No alcohol, tobacco, drug use. FAMILY HISTORY: Noncontributory. REVIEW OF SYSTEMS: All pertinent positives included in the above history of present illness. LABORATORY DATA: Patient's labs show a normal comprehensive metabolic panel. Alkaline phosphatase was 135, normal CK level, essentially normal CBC as well as PT, PTT. Urinalysis: Trace of leukocyte esterase. Tox screen was negative. Cervical spine x-ray shows no cervical instability. PHYSICAL EXAMINATION: VITAL SIGNS: Today, 98.5 temperature, 70 pulse, 20 respirations, 130/85 blood pressure. GENERAL: Not in acute distress, lying in bed. HEENT: Normocephalic, atraumatic head. NECK: No carotid bruits. No thyromegaly. LUNGS: Clear to auscultation bilaterally. CARDIAC: Normal cardiac rhythm and sounds. ABDOMEN: Soft, nontender. EXTREMITIES: No cyanosis, clubbing or edema. NEUROLOGIC: She is awake, alert, and oriented x3. She has restricted affect, but cooperative and with examination. Fluent speech. Cranial nerve examination shows intact visual calderón bilaterally. Pupils reactive from 3 to 2 mm bilaterally. Extraocular movements intact without nystagmus. Symmetrical face. Preserved facial strength and sensation. Tongue is in midline. Palate elevates symmetrically. Motor strength examination is somewhat limited. The patient has a great deal of give way strength essentially throughout and requires a lot of reassurance and distraction. For manual strength testing, she also has pain predominantly in the left shoulder area even with passive elevation of the arm more than 90 degrees. There are some bruises on the left lateral arm. She has limited elevation of the arms on the left, does not go higher than 90 degrees, on the right is able to lift higher, but still with give way about 3/5. I do not think that she has any other focal weakness. With reassurance I was able to get at least 4/5 throughout. Deep tendon reflexes 3+ throughout. Upgoing toe on the right and equivocal on the left. Preserved sensory examination to all modalities. No sensory level felt. The patient was able to ambulate a few steps, complains of some dizziness after she got up, but was able to ambulate a few steps at least without any major ataxia or gait difficulties. IMPRESSION: Generalized weakness since the episode of overdose, possible cervical ligamentous injury according to MRI report as well as degenerative disk disease on C4-5 levels which seem to be more chronic at 5-6 level. The patient's weakness is somewhat improving with steroids. She has predominantly weakness of elevation of the arms on my examination. Neurosurgeon is on case planning to proceed with cervical surgery. It is not clear how she developed ligamentous injury, possibly maybe she fell or lost consciousness and fell because of overdose or maybe she was on the floor in some strange position, keeping her head in a strange awkward position. I am not sure. I do not have any other suggestions for patient's management. A spinal specialist is on case. Continue to follow his recommendations. Thank you very much for this interesting consultation. Dictated By: STACIE MOYA/MICHAEL Conf#: [id number] [facility]#: [id number] MTDD
[2016-11-15] VITALS (27 sets, daily range): BP systolic 113–145; BP diastolic 55–90; PULSE 67–78; RESP 14–20
[2016-11-15 05:50] LABS: EOSINOPHILS % 0.2 % (0.0-7.0); HEMOGLOBIN 12.7 g/dl (12.0-16.0); LYMPHOCYTES # 1.2 10^3/ul (0.8-2.9); LYMPHOCYTES % 18.6 % (15.0-51.0); MEAN CORPUSCULAR HEMOGLOBIN 27.7 pg (29.0-33.0); MEAN CORPUSCULAR HGB CONC 33.4 g/dl (32.0-37.0); MEAN CORPUSCULAR VOLUME 82.9 fl (82.0-101.0); MEAN PLATELET VOLUME 10.4 fl (7.4-10.4); MONOCYTE # 0.7 10^3/ul (0.3-0.9); MONOCYTES % 11.4 % (0.0-11.0); NEUTROPHIL # 4.5 10^3/ul (1.6-7.5); NEUTROPHILS % 69.8 % (39.0-77.0); PLATELET COUNT 206 10^3/UL (140-440); RED BLOOD COUNT 4.58 10^6/ul (4.20-5.40); RED CELL DISTRIBUTION WIDTH 13.8 % (11.5-14.5); UNCORRECTED WBC 6.4 10^3/ul (4.8-10.8); WHITE BLOOD COUNT 6.4 10^3/ul (4.8-10.8)
[2016-11-15 06:00] LABS: INR 0.91; PROTIME 12.2 Sec (12.2-14.2)
[2016-11-15 06:07] LABS: POTASSIUM 4.3 mmol/L (3.5-5.1)
[2016-11-15 06:09] LABS: CREATININE 0.55 mg/dl (0.44-1.00)
[2016-11-15 06:55] LABS: CONDITION 1
[2016-11-15] MEDS ORDERED: CEFAZOLIN 1 GM INJ ONE (07:00)
[2016-11-15] MEDS: METHYLPREDNISOLONE 4 MG TAB PO SCH ×5 (08:00→21:00)
[2016-11-15] MEDS: OLANZAPINE 5 MG TAB PO SCH (09:00)
[2016-11-15] MEDS: PANTOPRAZOLE (EC) 40 MG TAB PO SCH (09:00)
[2016-11-15] MEDS: FLUOXETINE 20 MG CAP PO SCH (09:00)
[2016-11-15] MEDS ORDERED: CEFAZOLIN 1 GM/50 ML (PMX) 50 ML IVPB ONE (09:00)
--- NOTE | 2016-11-15 11:34 | PN ---
Date/Time of Note Date/Time of Note DATE: 11/15/16 TIME: 11:29 Assessment/Plan VTE Prophylaxis VTE Prophylaxis Intervention: anti-embolic stocking Lines/Catheters IV Catheter Type (from Nrsg): Saline Lock Urinary Cath still in place: No Assessment/Plan Assessment/Plan 1. neuro: cervical spinal stenosis related to ligamentaous injury and disc disease, tentative surgical Rx today 2. psych: severe depression, on hold as recently as 2 weeks (or less) ago, will likely need inpatient psych care when medically improved Subjective 24 Hr Interval Summary Free Text/Dictation no new complaints some L shoulder pain but not taking pain mediacations Exam/Review of Systems Vital Signs Vitals Vital Signs Date Time Temp Pulse Resp B/P Pulse Ox O2 Delivery O2 Flow Rate FiO2 11/15/16 07:15 97.4 99 20 118/61 93 11/13/16 17:48 Room Air Intake and Output 11/14/16 11/14/16 11/15/16 15:00 23:00 07:00 Intake Total 700 ml Output Total 1300 ml Balance -600 ml Exam Respiratory: clear to auscultation Cardiovascular: regular rate and rhythm Gastrointestinal: non-tender, soft Results Result Diagram: 11/15/16 0505 11/15/16 0505 Results 24 hrs Laboratory Tests Test 11/15/16 05:05 Activated Partial Thromboplast Time 25.0 Anion Gap 16 Basophils # 0.0 Basophils % 0.0 Blood Morphology Comment Blood Urea Nitrogen 16 Calcium Level 9.0 Carbon Dioxide Level 26 Chloride Level 104 Creatinine 0.55 Eosinophils # 0.0 Eosinophils % 0.2 Glucose Level 98 Hematocrit 38.0 Hemoglobin 12.7 INR International Normalized Ratio 0.91 Lymphocytes # 1.2 Lymphocytes % 18.6 Magnesium Level 2.0 Mean Corpuscular Hemoglobin 27.7 L Mean Corpuscular Hemoglobin Concent 33.4 Mean Corpuscular Volume 82.9 Mean Platelet Volume 10.4 Monocytes # 0.7 Monocytes % 11.4 H Neutrophils # 4.5 Neutrophils % 69.8 Nucleated Red Blood Cells # 0.0 Nucleated Red Blood Cells % 0.0 Platelet Count 206 Potassium Level 4.3 Prothrombin Time 12.2 Prothrombin Time Ratio 1.0 Red Blood Count 4.58 Red Cell Distribution Width 13.8 Sodium Level 142 White Blood Count 6.4 # Medications Medications Current Medications Naloxone HCl (Narcan) 0.4 mg Q2M PRN IV LETHARGY Last administered on 12:05; Admin Dose 0.4 MG; Start 11/07/16 at 12:00 Clonazepam (Klonopin) 1 mg Q8H PRN PO ANXIETY; Start 11/11/16 at 14:00 Fluoxetine HCl (Prozac) 40 mg DAILY PO Last administered on 11/14/16 08:13; Admin Dose 40 MG; Start 11/12/16 at 09:00 Olanzapine (Zyprexa) 15 mg DAILY PO Last administered on 11/14/16 08:12; Admin Dose 15 MG; Start 11/12/16 at 09:00 Ondansetron HCl (Zofran Inj) 4 mg Q6H PRN IV NAUSEA AND/OR VOMITING; Start 11/11 at 14:00 Acetaminophen (Tylenol Tab) 650 mg Q6H PRN PO PAIN LEVEL 1-3 OR FEVER Last administered on 11/12/16 20:21; Admin Dose 650 MG; Start 11/11/16 at 14:00 Acetaminophen/ Hydrocodone Bitart ([place] (5/325)) 1 tab Q6H PRN PO PAIN LEVEL 4 -6; Start 11/11/16 at 14:00 Docusate Sodium (Colace) 100 mg Q12H PRN PO CONSTIPATION; Start 11/11/16 at 14: 00 Magnesium Hydroxide (Milk Of Mag) 30 ml DAILY PRN PO CONSTIPATION; Start at 14:00 Bisacodyl (Dulcolax Supp) 10 mg DAILY PRN [place] CONSTIPATION; Start 11/11/16 at 14: 00 Trazodone HCl (Desyrel) 100 mg QHS PO Last administered on 11/14/16 20:37; Admin Dose 100 MG; Start 11/12/16 at 21:00 Pantoprazole (Protonix Tab) 40 mg DAILY@09 PO Last administered on 11/14/16 08: 12; Admin Dose 40 MG; Start 11/14/16 at 09:00 Methylprednisolone (Medrol) 4 mg HS PO ; Start 11/15/16 at 21:00; Stop 11/17/16 at 21:01 TANNA HO MD Nov 15, 2016 11:34
[2016-11-15] MEDS ORDERED: GLYCOPYRROLATE 1 MG INJ ONE (13:08)
[2016-11-15] MEDS ORDERED: ONDANSETRON 4 MG INJ ONE (13:08)
[2016-11-15] MEDS ORDERED: PROPOFOL 100 ML ONE (13:08)
[2016-11-15] MEDS ORDERED: DEXAMETHASONE 4 MG/ML 1 ML INJ ONE (13:08)
[2016-11-15] MEDS ORDERED: NEOSTIGMINE 3 MG/3 ML SYRINGE ONE (13:08)
[2016-11-15] MEDS ORDERED: MIDAZOLAM 1 MG/ML 2 ML INJ ONE (13:08)
[2016-11-15] MEDS ORDERED: ROCURONIUM 50 MG INJ ONE (13:08)
[2016-11-15] MEDS ORDERED: LIDOCAINE 2% (SDV) 5 ML INJ ONE (13:08)
[2016-11-15] MEDS ORDERED: THROMBIN 5000 UNIT VIAL ONE (13:56)
[2016-11-15] MEDS ORDERED: GELATIN SIZE 100 SPONGE ONE ×2 (13:56→13:57)
[2016-11-15] MEDS ORDERED: LIDOCAINE 0.5%/EPI (MDV) 50 ML INJ ONE (13:56)
[2016-11-15] MEDS ORDERED: POLYMYXIN/BACITRACIN 1L IRRIG ONE (14:18)
[2016-11-15] MEDS ORDERED: EPHEDrine SULFATE 50 MG/5 ML SYG IV PRN (16:00)
[2016-11-15] MEDS ORDERED: hydrALAzine 20 MG INJ IV PRN (16:00)
[2016-11-15] MEDS ORDERED: TRIMETHOBENZAMIDE 100 MG/ML VIAL IM PRN (16:00)
[2016-11-15] MEDS ORDERED: FENTAnyl 50 MCG/ML VIAL IV PRN ×3 (16:00)
[2016-11-15] MEDS ORDERED: MEPERIDINE 25 MG INJ IV PRN (16:00)
[2016-11-15] MEDS ORDERED: DIPHENHYDRAMINE 50 MG INJ IV PRN (16:00)
[2016-11-15] MEDS ORDERED: HYDROmorphONE (0.2 MG/ML) 10ML SYG IV PRN ×3 (16:00)
[2016-11-15] MEDS ORDERED: MIDAZOLAM 1 MG/ML 2 ML INJ IV PRN (16:00)
[2016-11-15] MEDS ORDERED: LABETALOL HCL 20MG INJ IV PRN (16:00)
[2016-11-15] MEDS ORDERED: ONDANSETRON 4 MG INJ IV PRN (16:00)
--- NOTE | 2016-11-15 18:51 | OPPN ---
Date/Time of Note Date/Time of Note DATE: 11/15/16 TIME: 18:48 Operative/Procedure Note Pre-Operative Diagnosis 1. cervical spondylosis and stenosis with myelopathy C4-5, C5-6 Post-Operative Diagnosis 1. cervical spondylosis and stenosis with myelopathy C4-5, C5-6 Procedure 1. C4-5, C5-6 Anterior cervical discectomy and fusion with PEEK graft and plate. Surgeon: ZAK FLOREZ MD Anesthesiologist: Naveed Cody M.D. Findings spondylosis and stenosis Implants/Grafts 2 PEEK grafts, 1 anterior cervical plate, 6 screws Estimated blood loss: 10 - 50 ml's Drains: Not applicable Specimens intervertebral dis C4-5, C5-6 Complications: None Anesthesia type: general ZAK FLOREZ MD Nov 15, 2016 18:51
[2016-11-15] MEDS ORDERED: DIPHENHYDRAMINE 50 MG CAP PO PRN (19:30)
[2016-11-15] MEDS ORDERED: CEPASTAT LOZENGE MT PRN (19:30)
[2016-11-15] MEDS ORDERED: AL HYDROX/MG HYDROX/SIMETH 30 ML CUP PO PRN (19:30)
--- NOTE | 2016-11-15 20:00 | OPR ---
DATE OF OPERATION: 11/15/2016 PREOPERATIVE DIAGNOSIS: Cervical spondylosis with stenosis and myelopathy, C4- 5 and C5-6. POSTOPERATIVE DIAGNOSIS: Cervical spondylosis with stenosis and myelopathy, C4- 5 and C5-6. PROCEDURES: 1. C4-5 anterior cervical diskectomy and fusion with interbody graft. 2. C5-6 anterior cervical diskectomy and interbody fusion, C5-6. 3. Placement of anterior cervical plate. 4. Use of operative microscope for intraoperative microdissection. SURGEON: Zak Salas MD ANESTHESIOLOGIST: Naveed Cody MD ANESTHESIA: General endotracheal. ESTIMATED BLOOD LOSS: 25 mL. FINDINGS: Stenosis. DRAINS PLACED: None. SPECIMEN COLLECTED: Intervertebral disk CLAIM PROCESSING SPECIALIST: None. COMPLICATIONS: None. DISPOSITION: Recovery. INDICATIONS: The patient is a 51-year-old female, who was found down after a possible overdose. The patient had been noted to have diffuse weakness in her body. An MRI was obtained, which showed significant cervical stenosis C4-5 and C5-6. The patient had signs of myelopathy on examination. The risks, benefits , and alternatives of surgical intervention were discussed with patient and her , and surgery was elected for. PROCEDURE: The patient was brought to the OR. She was sedated, intubated, and anesthesia successfully induced. A Boone catheter was placed. Sequential compression devices were placed. The patient was placed in a supine position with the head slightly flexed, and an interscapular roll placed. Her shoulders were gently taped down. Dr. Melo placed an arterial line. Electrophysiologic monitoring was performed and baseline established. The patient was sterilely prepped and draped. Left fluoroscopy was used to localize the initial incision. After surgical time-out, the procedure commenced. PROCEDURE: A 10 blade knife was used to make a diagonal incision along the border of the sternocleidomastoid. Sharp dissection through platysma was performed, and then blunt dissection with Kitner and spreading Metzenbaums was performed through a plane, down to the prevertebral fascia. Dea hand-held retractor was used, as Bovie electrocautery was used to dissect the longus colli muscles away from the complete C5 vertebral body, superior aspect of C4, and inferior aspect of the C6 vertebral body. Self-retaining retractors were placed. Towner distraction pins were placed in the vertebral body of C4 and C5. An 11 blade knife was used to dissect the disk and distraction was performed. The microscope was then brought in for microdissection. Diskectomy was performed at C4-5 with a combination of pituitary rongeurs; # 1, 2, and 3 Kerrison rongeurs and curettes. A high speed drill was used to even out the endplates and the cavity. The superior endplate, as well as some osteophytes at the anterior aspect of the endplates. Dissection was carried posteriorly to the posterior longitudinal ligament, where there was spondylosis and osteophytes. A nerve hook was used to reach under the ligament, and then a Kerrison rongeur was used to remove the posterior longitudinal ligament, revealing the epidural space. The Kerrison was then used to remove the cartilaginous endplate. Next, a trial of a 7 mm lordotic cage was placed in the intervertebral space and appeared to be the appropriate size. Therefore, a PEEK cage filled with bone substitute was tapped into the intervertebral space and fit snugly. The distraction was removed and this appeared to have good placement radiographically. The retractors were removed to C5-6 disk space, where a diskectomy was performed in the same manner as above. An 11 blade used to open the disk space and nucleus pulposus removed. Curettes were used to remove the cartilaginous endplate, as well as high speed drill used to eat the cavity of the superior endplate and anterior osteophytic lip. Dissection was carried back to the posterior longitudinal ligament, which was then opened with a nerve hook, and Kerrison rongeurs revealed the epidural space. This was carried laterally to the uncinate processes. Towner pins had been moved from the C4-C6 vertebral body, and aspiration of bone marrow taken from the vertebral body. This was injected into the graft at C4 and placed in the bone substitute at C6, which was placed into the PEEK cage. A 6 mm cage was trialed, was used, and appeared to be the appropriate size, and therefore, the cage with bone substitute was tapped into the intervertebral space. This fit snugly. The retractor was removed. Fluoroscopic images showed good placement of the graft. Next, a 42 mm anterior cervical plate was bent to appropriate lordosis, and 6 screws were placed, 2 at each vertebral bodies from C4, 5, and 6 under fluoroscopic guidance. All screws had excellent purchase, and I used a slef- locking plate mechanism; all screws were checked; that they had been screwed deep enough to lock. Final AP and lateral images were obtained. The wound was copiously irrigated with bacitracin irrigation, and there was no evidence of any bleeding. The esophagus and carotid were inspected, and showed no evidence of violation. The incision was then closed with 2-0 interrupted Vicryl sutures in the platysma, 2- 0 interrupted subcuticular sutures, and Dermabond was placed in the incision and allowed to dry. A sterile dressing was applied. The patient was placed in a hard cervical collar, extubated, taken off the table, and taken to recovery. Sponge, needle, and cottonoid count were reported correct at the end of the case. Dictated By: ZAK SALAS MD, LG/MICHAEL Conf#: [id number] DID#: [id number] MTDD
[2016-11-15] MEDS: traZODone 100 MG TAB PO SCH (21:00)
[2016-11-15] MEDS ORDERED: NALOXONE (0.4 MG/ML) INJ IV PRN (21:45)
[2016-11-15] MEDS ORDERED: morphine 1 MG/ML 30 ML (PCA) IV SCH (21:45)
--- NOTE | 2016-11-15 22:27 | RADRPT ---
PROCEDURE: Fluoroscopic intraoperative assistance CLINICAL INDICATION: Anterior cervical spine disk fusion TECHNIQUE: Approximately 18.4 seconds of intraoperative fluoroscopic assistance is provided under the supervision of Dr. Salas and 18 intraoperative exposures are submitted to the PACS for review COMPARISON: X-ray 11/13/2016 FINDINGS: Images demonstrate intraoperative placement of an anterior fusion plate and interbody grafts at C4-5 and C5-6. The final images demonstrate good positioning of the anterior fusion hardware and interb shereen grafts. RPTAT:HJJR IMPRESSION: Fluoroscopic assistance for anterior cervical decompression and fusion surgery with fixation plate, screws and interbody grafts placed from the C4 through the C6 levels. Physician Beck Date Time Electronically viewed and signed by Physician Beck on 11/15/2016 22:27 /
[2016-11-16] MEDS: CEFAZOLIN 1 GM/50 ML (PMX) 50 ML IVPB SCH ×4 (00:02→18:37)
[2016-11-16 05:00] VITALS: BP 126/71; RESP 20
[2016-11-16 05:27] LABS: POTASSIUM 4.1 mmol/L (3.5-5.1)
[2016-11-16 05:30] LABS: CREATININE 0.49 mg/dl (0.44-1.00)
[2016-11-16 05:31] LABS: CALCIUM 9.1 mg/dl (8.4-10.2)
[2016-11-16 05:42] LABS: HEMATOCRIT 36.4 % (37.0-47.0)
[2016-11-16 07:42] VITALS: BP 123/70; RESP 18
[2016-11-16 07:45] VITALS: BP 123/70; RESP 18
[2016-11-16] MEDS: METHYLPREDNISOLONE 4 MG TAB PO SCH ×2 (08:44→21:17)
[2016-11-16] MEDS: FLUOXETINE 20 MG CAP PO SCH (08:44)
[2016-11-16] MEDS: PANTOPRAZOLE (EC) 40 MG TAB PO SCH (08:46)
[2016-11-16] MEDS: OLANZAPINE 5 MG TAB PO SCH ×2 (09:00→11:07)
--- NOTE | 2016-11-16 10:17 | PN ---
Date/Time of Note Date/Time of Note DATE: 11/16/16 TIME: 10:08 Assessment/Plan VTE Prophylaxis VTE Prophylaxis Intervention: SCD's Lines/Catheters IV Catheter Type (from Nrsg): Peripheral IV Urinary Cath still in place: Yes Reason Cath still needed: other (indicate) (d/c once up with PT ) Assessment/Plan Assessment/Plan 51-year-old female with: 1. Cervical spine spinal stenosis with myelopathy with known chronic spinal spondylosis. POD #1 C4-5 anterior cervical diskectomy and fusion with interbody graft and C5-6 anterior cervical diskectomy and interbody fusion, C5- 6. C collar in place and PT eval pending On steroids and Dr. Salas following On MANAGER GARAGE for pain control post op, will switch to po regimen in the next 24 hrs 2. Major depressive disorder with suicidal attempt. The patient currently is stable but still expressing suicidal intentions and hopelessness. On a hold per psych and back on her meds Continue 1:1 sitter. Will need inpatient psychiatric care at discharge. Prophylaxis: SCDs for DVT prophylaxis. Pepcid for GI prophylaxis. DISPOSITION: Med Surg, PT and d/c to rehab/inpatient psych once cleared by Neurosurgery. Subjective 24 Hr Interval Summary Free Text/Dictation Patient doing OK POD 1 Pain control with MANAGER GARAGE for now and awaiting Neurosurgery clearance for PT Still expressing suicidal thoughts and hopelessness Exam/Review of Systems Vital Signs Vitals Vital Signs Date Time Temp Pulse Resp B/P Pulse Ox O2 Delivery O2 Flow Rate FiO2 11/16/16 07:45 97.9 69 18 123/70 99 11/15/16 23:45 Nasal Cannula 11/15/16 20:30 2.0 Intake and Output 11/15/16 11/15/16 11/16/16 15:00 23:00 07:00 Intake Total 3000 ml 130 ml Output Total 1680 ml 1800 ml Balance 1320 ml -1670 ml Exam Constitutional: alert, oriented Psych: depression, suicidal (still expressing thoughts ) Respiratory: clear to auscultation, normal air movement Cardiovascular: nl pulses, regular rate and rhythm Gastrointestinal: non-tender, soft Musculoskeletal: nl extremities to inspection Extremities: normal pulses, other (no edema, clubbing or cyanosis ) 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: OCCUPATIONAL PHYSICIAN II-XII intact, nl mental status, nl speech, other (PT eval pending but moving all 4 extremities ) Results Result Diagram: 11/16/16 0450 11/16/16 0450 Results 24 hrs Laboratory Tests Test 11/16/16 04:50 Anion Gap 16 Blood Urea Nitrogen 9 Calcium Level 9.1 Carbon Dioxide Level 29 Chloride Level 99 Creatinine 0.49 Glucose Level 97 Hematocrit 36.4 L Hemoglobin 12.0 Potassium Level 4.1 Sodium Level 140 Medications Medications Current Medications Clonazepam (Klonopin) 1 mg Q8H PRN PO ANXIETY; Start 11/11/16 at 14:00 Fluoxetine HCl (Prozac) 40 mg DAILY PO Last administered on 11/16/16 08:44; Admin Dose 40 MG; Start 11/12/16 at 09:00 Olanzapine (Zyprexa) 15 mg DAILY PO Last administered on 11/14/16 08:12; Admin Dose 15 MG; Start 11/12/16 at 09:00 Ondansetron HCl (Zofran Inj) 4 mg Q6H PRN IV NAUSEA AND/OR VOMITING; Start 11/11 at 14:00 Acetaminophen (Tylenol Tab) 650 mg Q6H PRN PO PAIN LEVEL 1-3 OR FEVER Last administered on 11/12/16 20:21; Admin Dose 650 MG; Start 11/11/16 at 14:00 Acetaminophen/ Hydrocodone Bitart ([place] (5/325)) 1 tab Q6H PRN PO PAIN LEVEL 4 -6; Start 11/11/16 at 14:00 Docusate Sodium (Colace) 100 mg Q12H PRN PO CONSTIPATION; Start 11/11/16 at 14: 00 Magnesium Hydroxide (Milk Of Mag) 30 ml DAILY PRN PO CONSTIPATION; Start at 14:00 Bisacodyl (Dulcolax Supp) 10 mg DAILY PRN [place] CONSTIPATION; Start 11/11/16 at 14: 00 Trazodone HCl (Desyrel) 100 mg QHS PO Last administered on 11/14/16 20:37; Admin Dose 100 MG; Start 11/12/16 at 21:00 Pantoprazole (Protonix Tab) 40 mg DAILY@09 PO Last administered on 11/16/16 08: 46; Admin Dose 40 MG; Start 11/14/16 at 09:00 Methylprednisolone (Medrol) 4 mg HS PO ; Start 11/15/16 at 21:00; Stop 11/17/16 at 21:01 Acetaminophen/ Hydrocodone Bitart ([place] (5/325)) 1 tab Q4H PRN PO PAIN LEVEL 1 -5; Start 11/15/16 at 19:30 Acetaminophen/ Hydrocodone Bitart 2 tab 2 tab Q4H PRN PO PAIN LEVEL 6-10; Start 11/15/16 at 19:30 Cefazolin Sodium (Ancef 1 Gm/50 ml (Pmx)) 50 ml @ 100 mls/hr Q6 IVPB Last administered on 11/16/16 05:49; Admin Dose 100 MLS/HR; Start 11/16/16 at 00:00; Stop 11/16/16 at 18:29 Al Hydrox/Mg Hydrox/Simethicone (Mag-Al Plus) 15 ml Q4H PRN PO CONSTIPATION; Start 11/15/16 at 19:30 Phenol (Cepastat Lozenge) 1 lozenge PRN PRN MT SORE THROAT; Start 11/15/16 at 19 :30 Diphenhydramine HCl (Benadryl) 50 mg Q6H PRN PO PRURITUS; Start 11/15/16 at 19: 30 Morphine Sulfate (morphine) 1 MG DOSE 10 MIN LOCKOUT 20 MG 4 HR LI... Q4PCA IV Last administered on 11/15/16 22:25; Admin Dose 30 MG; Start 11/15/16 at 21:45 Naloxone HCl (Narcan) 0.2 mg Q2M PRN IV DECREASED REPIRATORY RATE; Start at 21:45 JAE FERRARO Nov 16, 2016 10:16
--- NOTE | 2016-11-16 18:06 | PN ---
Date/Time of Note Date/Time of Note DATE: 11/16/16 TIME: 18:03 Assessment/Plan Lines/Catheters IV Catheter Type (from [facility]): Peripheral IV Boone in Place (from [facility]): Yes Assessment/Plan Chief Complaint/Hosp Course POD 31 s/p C4-5, C5-6 ACDF. Doing well. PT/OT Ambulate. SCD. Stable to Transfer to Psychiatric facility tomorrow. Problems: Subjective 24 Hr Interval Summary Patient doing well. Eating. Exam/Review of Systems Vital Signs Vitals Vital Signs Date Time Temp Pulse Resp B/P Pulse Ox O2 Delivery O2 Flow Rate FiO2 11/16/16 08:00 Nasal Cannula 2.0 11/16/16 07:45 97.9 69 18 123/70 99 Intake and Output 11/15/16 11/15/16 11/16/16 15:00 23:00 07:00 Intake Total 3000 ml 130 ml Output Total 1680 ml 1800 ml Balance 1320 ml -1670 ml Exam Constitutional: alert Head: normocephalic ENMT: other (in hard collar. Incision C/d/I) 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: ROLLER PRESSER OPERATOR II-XII intact, nl speech, nl strength, other (no hoarseness; grossly appear normal strength in bed) Results Result Diagram: 11/16/1644911/16/16449 ZAK FLOREZ MD Nov 16, 2016 18:06
[2016-11-16 19:32] VITALS: BP 112/58; RESP 18
[2016-11-16] MEDS: traZODone 100 MG TAB PO SCH (21:17)
[2016-11-17 05:19] LABS: BASOPHILS % 0.1 % (0.0-2.0); EOSINOPHILS % 0.3 % (0.0-7.0); HEMATOCRIT 36.6 % (37.0-47.0); LYMPHOCYTES # 1.5 10^3/ul (0.8-2.9); LYMPHOCYTES % 12.5 % (15.0-51.0); MEAN CORPUSCULAR HEMOGLOBIN 27.3 pg (29.0-33.0); MEAN CORPUSCULAR HGB CONC 32.9 g/dl (32.0-37.0); MEAN PLATELET VOLUME 9.9 fl (7.4-10.4); MONOCYTE # 0.8 10^3/ul (0.3-0.9); MONOCYTES % 6.7 % (0.0-11.0); NEUTROPHIL # 9.4 10^3/ul (1.6-7.5); NEUTROPHILS % 80.4 % (39.0-77.0); PLATELET COUNT 177 10^3/UL (140-440); RED BLOOD COUNT 4.41 10^6/ul (4.20-5.40); RED CELL DISTRIBUTION WIDTH 13.6 % (11.5-14.5); UNCORRECTED WBC 11.6 10^3/ul (4.8-10.8); WHITE BLOOD COUNT 11.6 10^3/ul (4.8-10.8)
[2016-11-17 05:47] LABS: CONDITION 1
[2016-11-17 06:11] LABS: POTASSIUM 4.2 mmol/L (3.5-5.1)
[2016-11-17 06:13] LABS: CREATININE 0.55 mg/dl (0.44-1.00)
[2016-11-17 06:15] LABS: CALCIUM 8.7 mg/dl (8.4-10.2)
[2016-11-17 07:20] VITALS: BP 115/82; RESP 20
[2016-11-17] MEDS ORDERED: CEFAZOLIN 1 GM/50 ML (PMX) 50 ML IVPB SCH (07:30)
[2016-11-17] MEDS ORDERED: BETHANECHOL 25 MG TAB PO PRN (07:30)
[2016-11-17] MEDS ORDERED: DEXAMETHASONE 4 MG/ML 1 ML INJ IV SCH (08:00)
--- NOTE | 2016-11-17 08:10 | PN ---
Date/Time of Note Date/Time of Note DATE: 11/17/16 TIME: 08:07 Assessment/Plan Lines/Catheters IV Catheter Type (from [facility]): Peripheral IV Boone in Place (from [facility]): Yes Assessment/Plan Chief Complaint/Hosp Course POD #2 s/p C4-5, C5-6 ACDF. Doing well. PT/OT Ambulate. incentive spirometer. SCD. Stable to Transfer to Psychiatric facility when available if remains afebrile today. Problems: Subjective 24 Hr Interval Summary Patient stable. Seen with her friend at bedside. States that she doesn't know if she feels stronger because she has yet to ambulate. Denies numbness, tingling or weakness. Reports some odynophagia and neck pain but says mostly from colla.r Exam/Review of Systems Vital Signs Vitals Vital Signs Date Time Temp Pulse Resp B/P Pulse Ox O2 Delivery O2 Flow Rate FiO2 11/17/16 07:20 100.3 107 20 115/82 93 11/16/16 20:05 Nasal Cannula 2.0 Intake and Output 11/16/16 11/16/16 11/17/16 15:00 23:00 07:00 Intake Total 500 ml 340 ml Output Total 950 ml 1800 ml Balance -450 ml -1460 ml Exam Constitutional: alert, oriented Psych: depression 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: LIMO DRIVER II-XII intact, nl mental status, nl speech, nl strength Skin: other (incision C/D/I) Results Result Diagram: 11/17/1643911/17/16439 ZAK FLOREZ MD Nov 17, 2016 08:10
[2016-11-17] MEDS: OLANZAPINE 5 MG TAB PO SCH (08:43)
[2016-11-17] MEDS: FLUOXETINE 20 MG CAP PO SCH (08:43)
[2016-11-17] MEDS: METHYLPREDNISOLONE 4 MG TAB PO SCH ×2 (08:43→20:18)
[2016-11-17] MEDS: PANTOPRAZOLE (EC) 40 MG TAB PO SCH (08:59)
[2016-11-17 11:01] VITALS: BP 128/76; RESP 19
--- NOTE | 2016-11-17 11:41 | PN ---
Date/Time of Note Date/Time of Note DATE: 11/17/16 TIME: 11:35 Assessment/Plan VTE Prophylaxis VTE Prophylaxis Intervention: SCD's Lines/Catheters IV Catheter Type (from Nrsg): Peripheral IV Urinary Cath still in place: No Assessment/Plan Assessment/Plan 51-year-old female with: 1. Cervical spine spinal stenosis with myelopathy with known chronic spinal spondylosis. POD #2 C4-5 anterior cervical diskectomy and fusion with interbody graft and C5-6 anterior cervical diskectomy and interbody fusion, C5- 6. C collar in place and PT ongoing Finishing steroid taper and if remains afebrile, ok to go to inpatient psych per Dr. Salas. Pain control 2. Major depressive disorder with suicidal attempt. The patient currently is stable but still expressing suicidal intentions and hopelessness. On a hold per psych and back on her meds Continue 1:1 sitter. Will need inpatient psychiatric care at discharge in the next 24 hrs if remains stable. 3. Episode of low grade fever: resolved, IS and monitor x 24 hrs, steroids being tapered down. Prophylaxis: SCDs for DVT prophylaxis. Pepcid for GI prophylaxis. DISPOSITION: Med Surg, PT and d/c to rehab/inpatient psych once cleared by Neurosurgery. Subjective 24 Hr Interval Summary Free Text/Dictation Patient awake and alert She has started PT and ambulated to restroom Pain controlled, low grade temp this AM Patient still suicidal and will need inpatient placement Exam/Review of Systems Vital Signs Vitals Vital Signs Date Time Temp Pulse Resp B/P Pulse Ox O2 Delivery O2 Flow Rate FiO2 11/17/16 11:01 98.3 111 19 128/76 93 11/16/16 20:05 Nasal Cannula 2.0 Intake and Output 11/16/16 11/16/16 11/17/16 15:00 23:00 07:00 Intake Total 500 ml 340 ml Output Total 950 ml 1800 ml Balance -450 ml -1460 ml Exam Constitutional: alert, oriented, well developed Neck: other (hard C collar ) Respiratory: clear to auscultation, normal air movement Cardiovascular: nl pulses, regular rate and rhythm Gastrointestinal: non-tender, soft Musculoskeletal: nl extremities to inspection, nl gait and stance Extremities: normal pulses 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: MAIL RIDER II-XII intact, nl mental status, nl speech, other (improved weakness and ambulation) Results Result Diagram: 11/17/1643911/17/16439 Results 24 hrs Laboratory Tests Test 11/17/16 04:40 Anion Gap 12 Basophils # 0.0 Basophils % 0.1 Blood Morphology Comment Blood Urea Nitrogen 10 Calcium Level 8.7 Carbon Dioxide Level 28 Chloride Level 95 L Creatinine 0.55 Eosinophils # 0.0 Eosinophils % 0.3 Glucose Level 103 Hematocrit 36.6 L Hemoglobin 12.0 Lymphocytes # 1.5 Lymphocytes % 12.5 L Magnesium Level 1.8 Mean Corpuscular Hemoglobin 27.3 L Mean Corpuscular Hemoglobin Concent 32.9 Mean Corpuscular Volume 83.0 Mean Platelet Volume 9.9 Monocytes # 0.8 Monocytes % 6.7 Neutrophils # 9.4 H Neutrophils % 80.4 H Nucleated Red Blood Cells # 0.0 Nucleated Red Blood Cells % 0.0 Platelet Count 177 Potassium Level 4.2 Red Blood Count 4.41 Red Cell Distribution Width 13.6 Sodium Level 131 L White Blood Count 11.6 #H Medications Medications Current Medications Clonazepam (Klonopin) 1 mg Q8H PRN PO ANXIETY; Start 11/11/16 at 14:00 Fluoxetine HCl (Prozac) 40 mg DAILY PO Last administered on 11/17/16 08:43; Admin Dose 40 MG; Start 11/12/16 at 09:00 Olanzapine (Zyprexa) 15 mg DAILY PO Last administered on 11/17/16 08:43; Admin Dose 15 MG; Start 11/12/16 at 09:00 Ondansetron HCl (Zofran Inj) 4 mg Q6H PRN IV NAUSEA AND/OR VOMITING; Start 11/11 at 14:00 Acetaminophen (Tylenol Tab) 650 mg Q6H PRN PO PAIN LEVEL 1-3 OR FEVER Last administered on 11/12/16 20:21; Admin Dose 650 MG; Start 11/11/16 at 14:00 Acetaminophen/ Hydrocodone Bitart ([place] (5/325)) 1 tab Q6H PRN PO PAIN LEVEL 4 -6; Start 11/11/16 at 14:00 Docusate Sodium (Colace) 100 mg Q12H PRN PO CONSTIPATION; Start 11/11/16 at 14: 00 Magnesium Hydroxide (Milk Of Mag) 30 ml DAILY PRN PO CONSTIPATION; Start at 14:00 Bisacodyl (Dulcolax Supp) 10 mg DAILY PRN [place] CONSTIPATION; Start 11/11/16 at 14: 00 Trazodone HCl (Desyrel) 100 mg QHS PO Last administered on 11/16/16 21:17; Admin Dose 100 MG; Start 11/12/16 at 21:00 Pantoprazole (Protonix Tab) 40 mg DAILY@09 PO Last administered on 11/17/16 08: 59; Admin Dose 40 MG; Start 11/14/16 at 09:00 Methylprednisolone (Medrol) 4 mg HS PO Last administered on 11/16/16 21:17; Admin Dose 4 MG; Start 11/15/16 at 21:00; Stop 11/17/16 at 21:01 Acetaminophen/ Hydrocodone Bitart ([place] (5/325)) 1 tab Q4H PRN PO PAIN LEVEL 1 -5; Start 11/15/16 at 19:30 Acetaminophen/ Hydrocodone Bitart ([place] (5/325)) 2 tab Q4H PRN PO PAIN LEVEL 6 -10; Start 11/15/16 at 19:30 Al Hydrox/Mg Hydrox/Simethicone (Mag-Al Plus) 15 ml Q4H PRN PO CONSTIPATION; Start 11/15/16 at 19:30 Phenol (Cepastat Lozenge) 1 lozenge PRN PRN MT SORE THROAT; Start 11/15/16 at 19 :30 Diphenhydramine HCl (Benadryl) 50 mg Q6H PRN PO PRURITUS; Start 11/15/16 at 19: 30 Naloxone HCl (Narcan) 0.2 mg Q2M PRN IV DECREASED REPIRATORY RATE; Start at 21:45 Bethanechol Chloride (Urecholine) 25 mg PRN PRN PO UNABLE TO VOID; Start at 07:30 JAE FERRARO Nov 17, 2016 11:41
[2016-11-17] MEDS ORDERED: SOD CHLORIDE 0.9% 1,000 ML IV ONE (12:00)
[2016-11-17] MEDS: HYDROCODONE/APAP (5/325) TAB PO PRN (18:34)
[2016-11-17 19:18] VITALS: BP 126/74; RESP 20
[2016-11-17] MEDS: traZODone 100 MG TAB PO SCH (20:18)
[2016-11-18 05:01] LABS: ADD SCAN DIFF NO
[2016-11-18 05:19] LABS: BASOPHILS % 0.2 % (0.0-2.0); EOSINOPHILS % 0.2 % (0.0-7.0); LYMPHOCYTES # 1.7 10^3/ul (0.8-2.9); LYMPHOCYTES % 13.6 % (15.0-51.0); MEAN CORPUSCULAR HEMOGLOBIN 26.8 pg (29.0-33.0); MEAN CORPUSCULAR HGB CONC 32.4 g/dl (32.0-37.0); MEAN CORPUSCULAR VOLUME 82.6 fl (82.0-101.0); MEAN PLATELET VOLUME 11.4 fl (7.4-10.4); MONOCYTE # 0.9 10^3/ul (0.3-0.9); MONOCYTES % 6.8 % (0.0-11.0); NEUTROPHIL # 9.9 10^3/ul (1.6-7.5); NEUTROPHILS % 78.7 % (39.0-77.0); PLATELET COUNT 214 10^3/UL (140-415); RED BLOOD COUNT 4.48 10^6/ul (4.20-5.40); RED CELL DISTRIBUTION WIDTH 13.4 % (11.5-14.5); WHITE BLOOD COUNT 12.6 10^3/ul (4.8-10.8)
[2016-11-18 05:21] LABS: CREATININE 0.58 mg/dl (0.44-1.00); MAGNESIUM 2.4 mg/dl (1.7-2.5); PHOSPHORUS 3.1 mg/dl (2.5-4.9)
[2016-11-18 05:22] LABS: CALCIUM 9.3 mg/dl (8.4-10.2)
[2016-11-18 07:35] VITALS: BP 125/72; RESP 18
[2016-11-18] MEDS: FLUOXETINE 20 MG CAP PO SCH (09:51)
[2016-11-18] MEDS: PANTOPRAZOLE (EC) 40 MG TAB PO SCH (09:52)
[2016-11-18] MEDS: METHYLPREDNISOLONE 4 MG TAB PO SCH (09:52)
[2016-11-18] MEDS: HYDROCODONE/APAP (5/325) TAB PO PRN ×2 (09:52→19:28)
[2016-11-18] MEDS: OLANZAPINE 5 MG TAB PO SCH (09:52)
--- NOTE | 2016-11-18 10:27 | PN ---
Date/Time of Note Date/Time of Note DATE: 11/18/16 TIME: 10:23 Assessment/Plan VTE Prophylaxis VTE Prophylaxis Intervention: ambulation, SCD's Lines/Catheters IV Catheter Type (from Nrsg): [place] Lock Urinary Cath still in place: No Assessment/Plan Assessment/Plan 51-year-old female with: 1. Cervical spine spinal stenosis with myelopathy with known chronic spinal spondylosis. POD #3 C4-5 anterior cervical diskectomy and fusion with interbody graft and C5-6 anterior cervical diskectomy and interbody fusion, C5- 6. Patient now ambulatory to bathroom Finished steroid taper today and has been afebrile. Patient medically and neurosurgically stable to go to inpatient psych as of today, d/c order has been placed Pain control with prn [place] 2. Major depressive disorder with suicidal attempt. The patient currently is stable but still expressing suicidal intentions and hopelessness. On a hold per psych and back on her meds Continue 1:1 sitter. Needs inpatient psychiatric care, group social worker notified and placement pending as of today. 3. Episode of low grade fever: resolved, IS, OFF steroids as of today. Prophylaxis: SCDs for DVT prophylaxis. Pepcid for GI prophylaxis. DISPOSITION: D/c to inpatient Psych today, medically cleared and stable for discharge . Subjective 24 Hr Interval Summary Free Text/Dictation Patient feels better and ambulating to bathroom Afebrile Patient stable medically to be discharged to inpatient psych today Exam/Review of Systems Vital Signs Vitals Vital Signs Date Time Temp Pulse Resp B/P Pulse Ox O2 Delivery O2 Flow Rate FiO2 11/18/16 07:35 98.1 98 18 125/72 95 11/16/16 20:05 Nasal Cannula 2.0 Intake and Output 11/17/16 11/17/16 11/18/16 15:00 23:00 07:00 Intake Total 855 ml 300 ml Output Total 800 ml Balance 55 ml 300 ml Exam Constitutional: alert, oriented, well developed Psych: depression Respiratory: clear to auscultation, normal air movement Cardiovascular: nl pulses, regular rate and rhythm Gastrointestinal: non-tender, soft Musculoskeletal: nl extremities to inspection, nl gait and stance Extremities: normal pulses 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: NEUROPSYCHIATRIC AIDE II-XII intact, nl mental status, nl speech, other (much improved strength and ambulatory now ) Results Result Diagram: 11/18/16 0412 11/18/16411 Results 24 hrs Laboratory Tests Test 11/18/16 04:12 Anion Gap 15 Basophils # 0.0 Basophils % 0.2 Blood Urea Nitrogen 10 Calcium Level 9.3 Carbon Dioxide Level 27 Chloride Level 102 Creatinine 0.58 Eosinophils # 0.0 Eosinophils % 0.2 Glucose Level 103 Hematocrit 37.0 Hemoglobin 12.0 Lymphocytes # 1.7 Lymphocytes % 13.6 L Magnesium Level 2.4 Mean Corpuscular Hemoglobin 26.8 L Mean Corpuscular Hemoglobin Concent 32.4 Mean Corpuscular Volume 82.6 Mean Platelet Volume 11.4 H Monocytes # 0.9 Monocytes % 6.8 Neutrophils # 9.9 H Neutrophils % 78.7 H Nucleated Red Blood Cells # 0.0 Nucleated Red Blood Cells % 0.0 Phosphorus Level 3.1 Platelet Count 214 Potassium Level 4.0 Red Blood Count 4.48 Red Cell Distribution Width 13.4 Sodium Level 140 White Blood Count 12.6 H Medications Medications Current Medications Clonazepam (Klonopin) 1 mg Q8H PRN PO ANXIETY; Start 11/11/16 at 14:00 Fluoxetine HCl (Prozac) 40 mg DAILY PO Last administered on 11/18/16 09:51; Admin Dose 40 MG; Start 11/12/16 at 09:00 Olanzapine (Zyprexa) 15 mg DAILY PO Last administered on 11/18/16 09:52; Admin Dose 15 MG; Start 11/12/16 at 09:00 Ondansetron HCl (Zofran Inj) 4 mg Q6H PRN IV NAUSEA AND/OR VOMITING; Start 11/11 at 14:00 Acetaminophen (Tylenol Tab) 650 mg Q6H PRN PO PAIN LEVEL 1-3 OR FEVER Last administered on 11/12/16 20:21; Admin Dose 650 MG; Start 11/11/16 at 14:00 Acetaminophen/ Hydrocodone Bitart ([place] (5/325)) 1 tab Q6H PRN PO PAIN LEVEL 4 -6 Last administered on 11/18/16 09:52; Admin Dose 1 TAB; Start 11/11/16 at 14: 00 Docusate Sodium (Colace) 100 mg Q12H PRN PO CONSTIPATION; Start 11/11/16 at 14: 00 Magnesium Hydroxide (Milk Of Mag) 30 ml DAILY PRN PO CONSTIPATION Last administered on 11/18/16 06:24; Admin Dose 30 ML; Start 11/11/16 at 14:00 Bisacodyl (Dulcolax Supp) 10 mg DAILY PRN [place] CONSTIPATION; Start 11/11/16 at 14: 00 Trazodone HCl (Desyrel) 100 mg QHS PO Last administered on 11/17/16 20:18; Admin Dose 100 MG; Start 11/12/16 at 21:00 Pantoprazole (Protonix Tab) 40 mg DAILY@09 PO Last administered on 11/18/16 09 :52; Admin Dose 40 MG; Start 11/14/16 at 09:00 Acetaminophen/ Hydrocodone Bitart ([place] (5/325)) 1 tab Q4H PRN PO PAIN LEVEL 1 -5 Last administered on 11/17/16 18:34; Admin Dose 1 TAB; Start 11/15/16 at 19:30 Acetaminophen/ Hydrocodone Bitart ([place] (5/325)) 2 tab Q4H PRN PO PAIN LEVEL 6 -10; Start 11/15/16 at 19:30 Al Hydrox/Mg Hydrox/Simethicone (Mag-Al Plus) 15 ml Q4H PRN PO CONSTIPATION; Start 11/15/16 at 19:30 Phenol (Cepastat Lozenge) 1 lozenge PRN PRN MT SORE THROAT; Start 11/15/16 at 19 :30 Diphenhydramine HCl (Benadryl) 50 mg Q6H PRN PO PRURITUS; Start 11/15/16 at 19: 30 Naloxone HCl (Narcan) 0.2 mg Q2M PRN IV DECREASED REPIRATORY RATE; Start at 21:45 Bethanechol Chloride (Urecholine) 25 mg PRN PRN PO UNABLE TO VOID; Start at 07:30 JAE FERRARO Nov 18, 2016 10:27
--- NOTE | 2016-11-18 10:30 | PDOCDIS ---
Discharge Instructions CONDITION Patient Condition: Stable HOME CARE INSTRUCTIONS: Special Diet: regular diet ACTIVITY: Activity Restrictions: No Restrictions FOLLOW UP/APPOINTMENTS Appointments Follow up with Dr Salas in 1 to 2 weeks Needs inpatient psych care for now JAE FERRARO Nov 18, 2016 10:30
[2016-11-18] MEDS ORDERED: HYDR-3498 PO (10:33)
--- NOTE | 2016-11-18 20:48 | PN ---
Date/Time of Note Date/Time of Note DATE: 11/18/16 TIME: 20:47 Assessment/Plan Lines/Catheters IV Catheter Type (from [facility]): Saline Lock [place] in Place (from [facility]): No Assessment/Plan Chief Complaint/Hosp Course POD #3 s/p C4-5, C5-6 ACDF. Medical supportive care. Incision C/d/I. Non acute surgical issues. Stable to Transfer to Psychiatric facility. Problems: Subjective 24 Hr Interval Summary Patient without complaints. Now ambulating Exam/Review of Systems Vital Signs Vitals Vital Signs Date Time Temp Pulse Resp B/P Pulse Ox O2 Delivery O2 Flow Rate FiO2 11/18/16 07:35 98.1 98 18 125/72 95 11/16/16 20:05 Nasal Cannula 2.0 Intake and Output 11/17/16 11/17/16 11/18/16 15:00 23:00 07:00 Intake Total 855 ml 300 ml Output Total 800 ml Balance 55 ml 300 ml Exam Constitutional: alert, oriented, well developed 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: FAN ENGINE ENGINEER II-XII intact, nl speech, nl strength Results Result Diagram: 11/18/16 0412 11/18/16 041 ZAK FLOREZ MD Nov 18, 2016 20:48
[2016-11-18] MEDS: traZODone 100 MG TAB PO SCH (21:03)
[2016-11-19 07:00] VITALS: BP 123/78; RESP 20
[2016-11-19] MEDS: FLUOXETINE 20 MG CAP PO SCH (08:08)
[2016-11-19] MEDS: HYDROCODONE/APAP (5/325) TAB PO PRN ×3 (08:09→20:07)
[2016-11-19] MEDS: OLANZAPINE 5 MG TAB PO SCH (08:09)
[2016-11-19] MEDS: PANTOPRAZOLE (EC) 40 MG TAB PO SCH (08:11)
--- NOTE | 2016-11-19 13:36 | PN ---
Date/Time of Note Date/Time of Note DATE: 11/19/16 TIME: 13:31 Assessment/Plan VTE Prophylaxis VTE Prophylaxis Intervention: SCD's Lines/Catheters IV Catheter Type (from Nrs): Saline Lock Urinary Cath still in place: No Assessment/Plan Assessment/Plan 51-year-old female with: 1. Cervical spine spinal stenosis with myelopathy with known chronic spinal spondylosis. POD #4 C4-5 anterior cervical diskectomy and fusion with interbody graft and C5-6 anterior cervical diskectomy and interbody fusion, C5- 6. Patient now ambulatory to bathroom and in hallway. Patient medically and neurosurgically stable to go to inpatient psych as of and d/c order has been placed 11/18 Pain control with prn [place] 2. Major depressive disorder with suicidal attempt. The patient currently is stable but still depressed and on/off expressing suicidal intentions and hopelessness. On a hold per psych and back on her meds Continue 1:1 sitter. Needs inpatient psychiatric care, will have another telepsych eval Monday if needed. 3. Episode of low grade fever: resolved, IS. Prophylaxis: SCDs for DVT prophylaxis. Pepcid for GI prophylaxis. DISPOSITION: D/c to inpatient Psych when bed available, medically cleared and stable for discharge as of 11/18. Subjective 24 Hr Interval Summary Free Text/Dictation Patient doing well medically and neurosurgically However still with severe depression and on/off suicidal. Awaiting psych Exam/Review of Systems Vital Signs Vitals Vital Signs Date Time Temp Pulse Resp B/P Pulse Ox O2 Delivery O2 Flow Rate FiO2 11/19/16 07:00 98.2 81 20 123/78 98 11/16/16 20:05 Nasal Cannula 2.0 Intake and Output 11/18/16 11/18/16 11/19/16 15:00 23:00 07:00 Intake Total 500 ml 120 ml Output Total 1000 ml Balance -500 ml 120 ml Exam Constitutional: alert, oriented, well developed Respiratory: clear to auscultation, normal air movement Cardiovascular: nl pulses, regular rate and rhythm Gastrointestinal: non-tender, soft Musculoskeletal: nl extremities to inspection Extremities: normal pulses, other (no edema, clubbing or cyanosis ) 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: 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 intact, nl mental status, nl speech, other (much improved muscle strength ) Results Result Diagram: 11/18/1641111/18/16411 Medications Medications Current Medications Clonazepam (Klonopin) 1 mg Q8H PRN PO ANXIETY; Start 11/11/16 at 14:00 Fluoxetine HCl (Prozac) 40 mg DAILY PO Last administered on 11/19/16 08:08; Admin Dose 40 MG; Start 11/12/16 at 09:00 Olanzapine (Zyprexa) 15 mg DAILY PO Last administered on 11/19/16 08:09; Admin Dose 15 MG; Start 11/12/16 at 09:00 Ondansetron HCl (Zofran Inj) 4 mg Q6H PRN IV NAUSEA AND/OR VOMITING; Start 11/11 at 14:00 Acetaminophen (Tylenol Tab) 650 mg Q6H PRN PO PAIN LEVEL 1-3 OR FEVER Last administered on 11/12/16 20:21; Admin Dose 650 MG; Start 11/11/16 at 14:00 Acetaminophen/ Hydrocodone Bitart ([place] (5/325)) 1 tab Q6H PRN PO PAIN LEVEL 4 -6 Last administered on 11/18/16 19:28; Admin Dose 1 TAB; Start 11/11/16 at 14: 00 Docusate Sodium (Colace) 100 mg Q12H PRN PO CONSTIPATION; Start 11/11/16 at 14: 00 Magnesium Hydroxide (Milk Of Mag) 30 ml DAILY PRN PO CONSTIPATION Last administered on 11/18/16 06:24; Admin Dose 30 ML; Start 11/11/16 at 14:00 Bisacodyl (Dulcolax Supp) 10 mg DAILY PRN [place] CONSTIPATION; Start 11/11/16 at 14: 00 Trazodone HCl (Desyrel) 100 mg QHS PO Last administered on 11/18/16 21:03; Admin Dose 100 MG; Start 11/12/16 at 21:00 Pantoprazole (Protonix Tab) 40 mg DAILY@09 PO Last administered on 11/19/16 08 :11; Admin Dose 40 MG; Start 11/14/16 at 09:00 Acetaminophen/ Hydrocodone Bitart ([place] (5/325)) 1 tab Q4H PRN PO PAIN LEVEL 1 -5 Last administered on 11/17/16 18:34; Admin Dose 1 TAB; Start 11/15/16 at 19:30 Acetaminophen/ Hydrocodone Bitart ([place] (5/325)) 2 tab Q4H PRN PO PAIN LEVEL 6 -10 Last administered on 11/19/16t 08:09; Admin Dose 2 TAB; Start 11/15/16 at 19: 30 Al Hydrox/Mg Hydrox/Simethicone (Mag-Al Plus) 15 ml Q4H PRN PO CONSTIPATION; Start 11/15/16 at 19:30 Phenol (Cepastat Lozenge) 1 lozenge PRN PRN [place] SORE THROAT; Start 11/15/16 at 19 :30 Diphenhydramine HCl (Benadryl) 50 mg Q6H PRN PO PRURITUS; Start 11/15/16 at 19: 30 Naloxone HCl (Narcan) 0.2 mg Q2M PRN IV DECREASED REPIRATORY RATE; Start at 21:45 Bethanechol Chloride (Urecholine) 25 mg PRN PRN PO UNABLE TO VOID; Start at 07:30 JAE FERRARO Nov 19, 2016 13:36
[2016-11-19 19:54] VITALS: BP 118/71; RESP 18
[2016-11-19] MEDS: clonAZEPAM 0.5 MG TAB PO PRN (20:06)
[2016-11-19] MEDS: traZODone 100 MG TAB PO SCH (20:06)
[2016-11-20 07:34] VITALS: BP 114/72; RESP 20
[2016-11-20] MEDS: FLUOXETINE 20 MG CAP PO SCH (08:51)
[2016-11-20] MEDS: HYDROCODONE/APAP (5/325) TAB PO PRN (08:51)
[2016-11-20] MEDS: OLANZAPINE 5 MG TAB PO SCH (08:51)
[2016-11-20] MEDS: PANTOPRAZOLE (EC) 40 MG TAB PO SCH (08:54)
--- NOTE | 2016-11-20 12:59 | PN ---
Date/Time of Note Date/Time of Note DATE: 11/20/16 TIME: 12:56 Assessment/Plan VTE Prophylaxis VTE Prophylaxis Intervention: ambulation, SCD's Lines/Catheters IV Catheter Type (from Nrsg): Peripheral IV Urinary Cath still in place: No Assessment/Plan Assessment/Plan 51-year-old female with: 1. Cervical spine spinal stenosis with myelopathy with known chronic spinal spondylosis. POD #5 C4-5 anterior cervical diskectomy and fusion with interbody graft and C5-6 anterior cervical diskectomy and interbody fusion, C5- 6. Patient now ambulatory to bathroom and in hallway. Ok for shower, continue IS Patient medically and neurosurgically stable to go to inpatient psych as of and d/c order has been placed 11/18 Pain control with prn [place] 2. Major depressive disorder with suicidal attempt. The patient currently is stable but still depressed and on/off expressing suicidal intentions and hopelessness. On a hold per psych and back on her meds Continue 1:1 sitter. Needs inpatient psychiatric care, will have another telepsych eval Monday if needed. Prophylaxis: SCDs for DVT prophylaxis. Pepcid for GI prophylaxis. DISPOSITION: D/c to inpatient Psych when bed available, medically cleared and stable for discharge as of 11/18. Subjective 24 Hr Interval Summary Free Text/Dictation Patient remains stable, awaiting fo inpatient psych placement Ok to shower Exam/Review of Systems Vital Signs Vitals Vital Signs Date Time Temp Pulse Resp B/P Pulse Ox O2 Delivery O2 Flow Rate FiO2 11/20/16 07:34 98.1 94 20 114/72 96 11/16/16 20:05 Nasal Cannula 2.0 Intake and Output 11/19/16 11/19/16 11/20/16 15:00 23:00 07:00 Intake Total 650 ml 600 ml Balance 650 ml 600 ml Exam Constitutional: alert, oriented, well developed Psych: depression Respiratory: clear to auscultation, normal air movement Cardiovascular: nl pulses, regular rate and rhythm Gastrointestinal: non-tender, soft Musculoskeletal: nl extremities to inspection Extremities: normal pulses, other (no edema, clubbing or cyanosis ) 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: AU PAIR II-XII intact, nl mental status, nl speech, other (much improved muscle strength throuhgout ) Results Result Diagram: 11/18/16 0412 11/18/16411 Medications Medications Current Medications Clonazepam (Klonopin) 1 mg Q8H PRN PO ANXIETY Last administered on 11/19/16 20 :06; Admin Dose 1 MG; Start 11/11/16 at 14:00 Fluoxetine HCl (Prozac) 40 mg DAILY PO Last administered on 11/20/16 08:51; Admin Dose 40 MG; Start 11/12/16 at 09:00 Olanzapine (Zyprexa) 15 mg DAILY PO Last administered on 11/20/16 08:51; Admin Dose 15 MG; Start 11/12/16 at 09:00 Ondansetron HCl (Zofran Inj) 4 mg Q6H PRN IV NAUSEA AND/OR VOMITING; Start 11/11 at 14:00 Acetaminophen (Tylenol Tab) 650 mg Q6H PRN PO PAIN LEVEL 1-3 OR FEVER Last administered on 11/12/16 20:21; Admin Dose 650 MG; Start 11/11/16 at 14:00 Acetaminophen/ Hydrocodone Bitart ([place] (5/325)) 1 tab Q6H PRN PO PAIN LEVEL 4 -6 Last administered on 11/18/16 19:28; Admin Dose 1 TAB; Start 11/11/16 at 14: 00 Docusate Sodium (Colace) 100 mg Q12H PRN PO CONSTIPATION; Start 11/11/16 at 14: 00 Magnesium Hydroxide (Milk Of Mag) 30 ml DAILY PRN PO CONSTIPATION Last administered on 11/18/16 06:24; Admin Dose 30 ML; Start 11/11/16 at 14:00 Bisacodyl (Dulcolax Supp) 10 mg DAILY PRN [place] CONSTIPATION; Start 11/11/16 at 14: 00 Trazodone HCl (Desyrel) 100 mg QHS PO Last administered on 11/19/16 20:06; Admin Dose 100 MG; Start 11/12/16 at 21:00 Pantoprazole (Protonix Tab) 40 mg DAILY@09 PO Last administered on 11/20/16 08 :54; Admin Dose 40 MG; Start 11/14/16 at 09:00 Acetaminophen/ Hydrocodone Bitart ([place] (5/325)) 1 tab Q4H PRN PO PAIN LEVEL 1 -5 Last administered on 11/17/16 18:34; Admin Dose 1 TAB; Start 11/15/16 at 19:30 Acetaminophen/ Hydrocodone Bitart ([place] (5/325)) 2 tab Q4H PRN PO PAIN LEVEL 6 -10 Last administered on 11/20/16t 08:51; Admin Dose 2 TAB; Start 11/15/16 at 19: 30 Al Hydrox/Mg Hydrox/Simethicone (Mag-Al Plus) 15 ml Q4H PRN PO CONSTIPATION; Start 11/15/16 at 19:30 Phenol (Cepastat Lozenge) 1 lozenge PRN PRN [place] SORE THROAT; Start 11/15/16 at 19 :30 Diphenhydramine HCl (Benadryl) 50 mg Q6H PRN PO PRURITUS; Start 11/15/16 at 19: 30 Naloxone HCl (Narcan) 0.2 mg Q2M PRN IV DECREASED REPIRATORY RATE; Start at 21:45 Bethanechol Chloride (Urecholine) 25 mg PRN PRN PO UNABLE TO VOID; Start at 07:30 JAE FERRARO Nov 20, 2016 12:59
[2016-11-20] MEDS: ACETAMINOPHEN 325 MG TAB PO PRN (16:39)
[2016-11-20 19:10] VITALS: BP 118/66; RESP 18
[2016-11-20] MEDS: clonAZEPAM 0.5 MG TAB PO PRN (20:41)
[2016-11-20] MEDS: traZODone 100 MG TAB PO SCH (20:41)
[2016-11-21 07:57] VITALS: BP 121/71; RESP 16
--- NOTE | 2016-11-21 08:51 | PN ---
Date/Time of Note Date/Time of Note DATE: 11/21/16 TIME: 08:48 Assessment/Plan VTE Prophylaxis VTE Prophylaxis Intervention: SCD's Lines/Catheters IV Catheter Type (from Nrsg): Saline Lock Urinary Cath still in place: No Assessment/Plan Assessment/Plan 51-year-old female with: 1. Cervical spine spinal stenosis with myelopathy with known chronic spinal spondylosis. POD #6 C4-5 anterior cervical diskectomy and fusion with interbody graft and C5-6 anterior cervical diskectomy and interbody fusion, C5- 6. Patient now ambulatory to bathroom and in hallway. Ok for shower, continue IS Patient medically and neurosurgically stable to go to inpatient psych as of and d/c order has been placed 11/18, patient fully ambulatory now Pain control with prn [place] 2. Major depressive disorder with suicidal attempt. The patient currently is stable but still depressed and on/off expressing suicidal intentions and hopelessness. On a hold per psych and back on her meds Continue 1:1 sitter. Needs inpatient psychiatric care. Prophylaxis: SCDs for DVT prophylaxis. Pepcid for GI prophylaxis. DISPOSITION: D/c to inpatient Psych when bed available, medically cleared and stable for discharge as of 11/18. Subjective 24 Hr Interval Summary Free Text/Dictation Patient doing well Fully ambulatory now and better po intake Needs placement to inpatient psych as of 11/18 cleared medically Exam/Review of Systems Vital Signs Vitals Vital Signs Date Time Temp Pulse Resp B/P Pulse Ox O2 Delivery O2 Flow Rate FiO2 11/21/16 07:57 98.3 93 16 121/71 96 Intake and Output 11/20/16 11/20/16 11/21/16 15:00 23:00 07:00 Intake Total 700 ml 760 ml Balance 700 ml 760 ml Exam Constitutional: alert, oriented, well developed Psych: depression Respiratory: clear to auscultation, normal air movement Cardiovascular: nl pulses, regular rate and rhythm Gastrointestinal: non-tender, soft Musculoskeletal: nl extremities to inspection, nl gait and stance Extremities: normal pulses, other (no edema, clubbing or cyanosis ) 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, nl mental status, nl speech, other (much stronger and ambulatory ) Results Result Diagram: 11/18/16 0412 11/18/16 041 Medications Medications Current Medications Clonazepam (Klonopin) 1 mg Q8H PRN PO ANXIETY Last administered on 11/20/16 20 :41; Admin Dose 1 MG; Start 11/11/16 at 14:00 Fluoxetine HCl (Prozac) 40 mg DAILY PO Last administered on 11/20/16 08:51; Admin Dose 40 MG; Start 11/12/16 at 09:00 Olanzapine (Zyprexa) 15 mg DAILY PO Last administered on 11/20/16 08:51; Admin Dose 15 MG; Start 11/12/16 at 09:00 Ondansetron HCl (Zofran Inj) 4 mg Q6H PRN IV NAUSEA AND/OR VOMITING; Start 11/11 at 14:00 Acetaminophen (Tylenol Tab) 650 mg Q6H PRN PO PAIN LEVEL 1-3 OR FEVER Last administered on 11/20/16 16:39; Admin Dose 650 MG; Start 11/11/16 at 14:00 Acetaminophen/ Hydrocodone Bitart ([place] (5/325)) 1 tab Q6H PRN PO PAIN LEVEL 4 -6 Last administered on 11/18/16 19:28; Admin Dose 1 TAB; Start 11/11/16 at 14: 00 Docusate Sodium (Colace) 100 mg Q12H PRN PO CONSTIPATION; Start 11/11/16 at 14: 00 Magnesium Hydroxide (Milk Of Mag) 30 ml DAILY PRN PO CONSTIPATION Last administered on 11/18/16 06:24; Admin Dose 30 ML; Start 11/11/16 at 14:00 Bisacodyl (Dulcolax Supp) 10 mg DAILY PRN [place] CONSTIPATION; Start 11/11/16 at 14: 00 Trazodone HCl (Desyrel) 100 mg QHS PO Last administered on 11/20/16 20:41; Admin Dose 100 MG; Start 11/12/16 at 21:00 Pantoprazole (Protonix Tab) 40 mg DAILY@09 PO Last administered on 11/20/16 08 :54; Admin Dose 40 MG; Start 11/14/16 at 09:00 Acetaminophen/ Hydrocodone Bitart ([place] (5/325)) 1 tab Q4H PRN PO PAIN LEVEL 1 -5 Last administered on 11/17/16 18:34; Admin Dose 1 TAB; Start 11/15/16 at 19:30 Acetaminophen/ Hydrocodone Bitart ([place] (5/325)) 2 tab Q4H PRN PO PAIN LEVEL 6 -10 Last administered on 11/20/16 08:51; Admin Dose 2 TAB; Start 11/15/16 at 19: 30 Al Hydrox/Mg Hydrox/Simethicone (Mag-Al Plus) 15 ml Q4H PRN PO CONSTIPATION; Start 11/15/16 at 19:30 Phenol (Cepastat Lozenge) 1 lozenge PRN PRN [place] SORE THROAT; Start 11/15/16 at 19 :30 Diphenhydramine HCl (Benadryl) 50 mg Q6H PRN PO PRURITUS; Start 11/15/16 at 19: 30 Naloxone HCl (Narcan) 0.2 mg Q2M PRN IV DECREASED REPIRATORY RATE; Start at 21:45 Bethanechol Chloride (Urecholine) 25 mg PRN PRN PO UNABLE TO VOID; Start at 07:30 JAE FERRARO Nov 21, 2016 08:51
[2016-11-21] MEDS: FLUOXETINE 20 MG CAP PO SCH (09:17)
[2016-11-21] MEDS: OLANZAPINE 5 MG TAB PO SCH (09:17)
[2016-11-21] MEDS: PANTOPRAZOLE (EC) 40 MG TAB PO SCH (09:17)
[2016-11-21 14:23] LABS: BASOPHILS % 0.4 % (0.0-2.0); EOSINOPHILS # 0.1 10^3/ul (0.0-0.5); HEMATOCRIT 35.8 % (37.0-47.0); LYMPHOCYTES # 2.1 10^3/ul (0.8-2.9); LYMPHOCYTES % 31.8 % (15.0-51.0); MEAN CORPUSCULAR HEMOGLOBIN 27.7 pg (29.0-33.0); MEAN CORPUSCULAR HGB CONC 33.5 g/dl (32.0-37.0); MEAN CORPUSCULAR VOLUME 82.6 fl (82.0-101.0); MEAN PLATELET VOLUME 8.7 fl (7.4-10.4); MONOCYTE # 0.5 10^3/ul (0.3-0.9); MONOCYTES % 7.9 % (0.0-11.0); NEUTROPHIL # 3.9 10^3/ul (1.6-7.5); NEUTROPHILS % 58.9 % (39.0-77.0); PLATELET COUNT 317 10^3/UL (140-440); RED BLOOD COUNT 4.34 10^6/ul (4.20-5.40); RED CELL DISTRIBUTION WIDTH 13.6 % (11.5-14.5); UNCORRECTED WBC 6.5 10^3/ul (4.8-10.8); WHITE BLOOD COUNT 6.5 10^3/ul (4.8-10.8)
[2016-11-21 14:25] LABS: CONDITION 1
[2016-11-21 15:06] LABS: ALBUMIN 3.6 g/dl (3.3-4.9); POTASSIUM 3.8 mmol/L (3.5-5.1)
[2016-11-21 15:09] LABS: ALBUMIN/GLOBULIN RATIO 1.05; BILIRUBIN,INDIRECT 0.2 mg/dl (0-1.1); BILIRUBIN,TOTAL 0.2 mg/dl (0.2-1.3); CALCIUM 9.3 mg/dl (8.4-10.2); CREATININE 0.54 mg/dl (0.44-1.00)
[2016-11-21 19:50] VITALS: BP 119/70; RESP 17
[2016-11-21] MEDS: traZODone 100 MG TAB PO SCH (21:44)
[2016-11-22 07:37] VITALS: BP 132/63; RESP 16
[2016-11-22] MEDS: clonAZEPAM 0.5 MG TAB PO PRN (08:05)
[2016-11-22] MEDS: FLUOXETINE 20 MG CAP PO SCH (08:05)
[2016-11-22] MEDS: OLANZAPINE 5 MG TAB PO SCH (08:05)
[2016-11-22] MEDS: PANTOPRAZOLE (EC) 40 MG TAB PO SCH (09:00)
--- NOTE | 2016-11-22 12:08 | PN ---
Date/Time of Note Date/Time of Note DATE: 11/22/16 TIME: 12:02 Assessment/Plan VTE Prophylaxis VTE Prophylaxis Intervention: SCD's Lines/Catheters IV Catheter Type (from Nrs): Saline Lock Urinary Cath still in place: No Assessment/Plan Assessment/Plan 51-year-old female with: 1. Cervical spine spinal stenosis with myelopathy with known chronic spinal spondylosis. POD #7 C4-5 anterior cervical diskectomy and fusion with interbody graft and C5-6 anterior cervical diskectomy and interbody fusion, C5- 6. Patient now ambulatory to bathroom and in hallway. Ok for shower, continue IS Patient medically and neurosurgically stable to go to inpatient psych as of and d/c order has been placed 11/18, patient fully ambulatory now Pain control with prn [place] 2. Major depressive disorder with suicidal attempt. The patient currently is stable but still depressed, has not suicidal intentions and hopelessness x 2 days now and seems to be motivitated to voluntary commit to inpatient psych. Tele Psych re-eval today Continue 1:1 sitter. Needs inpatient psychiatric care and patient is willing to voluntary commit to a facility. Prophylaxis: SCDs for DVT prophylaxis. Pepcid for GI prophylaxis. DISPOSITION: Tele psych re eval today D/c to inpatient Psych when bed available, medically cleared and stable for discharge as of 11/18. Subjective 24 Hr Interval Summary Free Text/Dictation Patient doing much better Tele psych re eval today D/c plan pending re eval Exam/Review of Systems Vital Signs Vitals Vital Signs Date Time Temp Pulse Resp B/P Pulse Ox O2 Delivery O2 Flow Rate FiO2 11/22/16 07:37 98.4 98 16 132/63 94 Intake and Output 11/21/16 11/21/16 11/22/16 15:00 23:00 07:00 Intake Total 700 ml 200 ml Balance 700 ml 200 ml Exam Constitutional: alert, oriented, well developed Respiratory: clear to auscultation, normal air movement Cardiovascular: nl pulses, regular rate and rhythm Gastrointestinal: non-tender, soft Musculoskeletal: nl extremities to inspection Extremities: normal pulses, other (no edema, clubbing or cyanosis ) 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: INK PRINTER II-XII intact, nl mental status, nl speech, nl strength, other (ambulatory ) Results Result Diagram: 11/21/16 1350 11/21/16 1350 Results 24 hrs Laboratory Tests Test 11/21/16 13:50 Alanine Aminotransferase (ALT/SGPT) 56 Albumin 3.6 Albumin/Globulin Ratio 1.05 Alkaline Phosphatase 152 H Anion Gap 17 H Aspartate Amino Transf (AST/SGOT) 38 Basophils # 0.0 Basophils % 0.4 Blood Morphology Comment Blood Urea Nitrogen 6 L Calcium Level 9.3 Carbon Dioxide Level 24 Chloride Level 105 Creatinine 0.54 Direct Bilirubin 0.00 Eosinophils # 0.1 Eosinophils % 1.0 Globulin 3.40 H Glucose Level 134 Hematocrit 35.8 L Hemoglobin 12.0 Indirect Bilirubin 0.2 Lymphocytes # 2.1 Lymphocytes % 31.8 Mean Corpuscular Hemoglobin 27.7 L Mean Corpuscular Hemoglobin Concent 33.5 Mean Corpuscular Volume 82.6 Mean Platelet Volume 8.7 # Monocytes # 0.5 Monocytes % 7.9 Neutrophils # 3.9 Neutrophils % 58.9 Nucleated Red Blood Cells # 0.0 Nucleated Red Blood Cells % 0.0 Platelet Count 317 # Potassium Level 3.8 Red Blood Count 4.34 Red Cell Distribution Width 13.6 Sodium Level 142 Total Bilirubin 0.2 Total Protein 7.0 White Blood Count 6.5 # Medications Medications Current Medications Clonazepam (Klonopin) 1 mg Q8H PRN PO ANXIETY Last administered on 11/22/16 08 :05; Admin Dose 1 MG; Start 11/11/16 at 14:00 Fluoxetine HCl (Prozac) 40 mg DAILY PO Last administered on 11/22/16 08:05; Admin Dose 40 MG; Start 11/12/16 at 09:00 Olanzapine (Zyprexa) 15 mg DAILY PO Last administered on 11/22/16 08:05; Admin Dose 15 MG; Start 11/12/16 at 09:00 Ondansetron HCl (Zofran Inj) 4 mg Q6H PRN IV NAUSEA AND/OR VOMITING; Start 11/11 at 14:00 Acetaminophen (Tylenol Tab) 650 mg Q6H PRN PO PAIN LEVEL 1-3 OR FEVER Last administered on 11/20/16 16:39; Admin Dose 650 MG; Start 11/11/16 at 14:00 Acetaminophen/ Hydrocodone Bitart ([place] (5/325)) 1 tab Q6H PRN PO PAIN LEVEL 4 -6 Last administered on 11/18/16 19:28; Admin Dose 1 TAB; Start 11/11/16 at 14: 00 Docusate Sodium (Colace) 100 mg Q12H PRN PO CONSTIPATION; Start 11/11/16 at 14: 00 Magnesium Hydroxide (Milk Of Mag) 30 ml DAILY PRN PO CONSTIPATION Last administered on 11/18/16 06:24; Admin Dose 30 ML; Start 11/11/16 at 14:00 Bisacodyl (Dulcolax Supp) 10 mg DAILY PRN [place] CONSTIPATION; Start 11/11/16 at 14: 00 Trazodone HCl (Desyrel) 100 mg QHS PO Last administered on 11/21/16 21:44; Admin Dose 100 MG; Start 11/12/16 at 21:00 Pantoprazole (Protonix Tab) 40 mg DAILY@09 PO Last administered on 11/21/16 09 :17; Admin Dose 40 MG; Start 11/14/16 at 09:00 Acetaminophen/ Hydrocodone Bitart ([place] (5/325)) 1 tab Q4H PRN PO PAIN LEVEL 1 -5 Last administered on 11/17/16 18:34; Admin Dose 1 TAB; Start 11/15/16 at 19:30 Acetaminophen/ Hydrocodone Bitart ([place] (5/325)) 2 tab Q4H PRN PO PAIN LEVEL 6 -10 Last administered on 11/20/16 08:51; Admin Dose 2 TAB; Start 11/15/16 at 19: 30 Al Hydrox/Mg Hydrox/Simethicone (Mag-Al Plus) 15 ml Q4H PRN PO CONSTIPATION; Start 11/15/16 at 19:30 Phenol (Cepastat Lozenge) 1 lozenge PRN PRN [place] SORE THROAT; Start 11/15/16 at 19 :30 Diphenhydramine HCl (Benadryl) 50 mg Q6H PRN PO PRURITUS; Start 11/15/16 at 19: 30 Naloxone HCl (Narcan) 0.2 mg Q2M PRN IV DECREASED REPIRATORY RATE; Start at 21:45 Bethanechol Chloride (Urecholine) 25 mg PRN PRN PO UNABLE TO VOID; Start at 07:30 JAE FERRARO Nov 22, 2016 12:08
--- NOTE | 2016-11-22 14:02 | PSY ---
Date/Time of Note Date/Time of Note DATE: 11/22/16 TIME: 13:57 Psychiatric Subjective Eval Subjective Evaluation Patient location: inpatient Chief Complaint: overdose at home; ems admin narcan with therapeutic results Reason for consult: re-eval History of present illness Spoke with Dr Clarke and JOHNIE Harvey; pt is 51 yo single female with hx schizoaffective d/o vs psycotic depression who was seen by this press writer on and by Dr Mandel on 11/11/16. Pt improved, she deneis Si and says she wants to be alive She still says she does not beieve in God and that is why he does not love her, but denies si: 'It did not work before, so I rachid ot do it to my family ". Denies si/hi, denies ah/vh. + delusional. Sleep is good. Past psychiatric history prior inpt Hospitalization: yes Family History as per record Medical history Problems Medical Problems: (1) Acute bacterial bronchitis Status: Acute (2) Acute viral bronchitis Status: Acute (3) Cough Status: Acute (4) Reactive airway disease Status: Acute (5) Suicidal thoughts Status: Acute (6) Toxic encephalopathy Status: Acute (7) Viral bronchitis Status: Acute Allergies: Coded Allergies: No Known Allergy (Unverified , 11/13/16) Substance Abuse Substance use: No known substance abuse Social History Marital status: single Level of education: hs DPA/Conservatorship: No Occupation/Assisted: unemployed Psychiatric Objective Eval Mental Status Examination: Appearance: Groomed Eye Contact: Good Psychomotor Activity: Normal Behavior: Cooperative Speech: Clear AFFECT: Appropriate Mood: Depressed Though Process: Linear Thought Content: Delusions Suicidal: No Homicidal: No On 72 hour hold: No Orientation: x4 Cognition: Alert Insight: Impared Judgement: Impared Laboratory Results Laboratory Tests Test 11/21/16 13:50 Alanine Aminotransferase (ALT/SGPT) 56IU/L Albumin 3.6g/dl Albumin/Globulin Ratio 1.05 Alkaline Phosphatase 152IU/L Anion Gap 17 Aspartate Amino Transf (AST/SGOT) 38IU/L Basophils # 0.010^3/ul Basophils % 0.4% Blood Morphology Comment Blood Urea Nitrogen 6mg/dl Calcium Level 9.3mg/dl Carbon Dioxide Level 24mmol/L Chloride Level 105mmol/L Creatinine 0.54mg/dl Direct Bilirubin 0.00mg/dl Eosinophils # 0.110^3/ul Eosinophils % 1.0% Globulin 3.40g/dl Glucose Level 134mg/dl Hematocrit 35.8% Hemoglobin 12.0g/dl Indirect Bilirubin 0.2mg/dl Lymphocytes # 2.110^3/ul Lymphocytes % 31.8% Mean Corpuscular Hemoglobin 27.7pg Mean Corpuscular Hemoglobin Concent 33.5g/dl Mean Corpuscular Volume 82.6fl Mean Platelet Volume 8.7fl Monocytes # 0.510^3/ul Monocytes % 7.9% Neutrophils # 3.910^3/ul Neutrophils % 58.9% Nucleated Red Blood Cells # 0.010^3/ul Nucleated Red Blood Cells % 0.0/100WBC Platelet Count 27898^3/UL Potassium Level 3.8mmol/L Red Blood Count 4.3410^6/ul Red Cell Distribution Width 13.6% Sodium Level 142mmol/L Total Bilirubin 0.2mg/dl Total Protein 7.0g/dl White Blood Count 6.510^3/ul Assessment and Plan Assessment/Diagnosis [place] I: schizoaffective d/o [place] II: defered [place] III: as per record [place] IV: moderate [place] V: gaf 35 Recommendation/Plan Medication Management please continue on current meds: Zyprexa can be increased to 20 mg po qhs ; continue on prozac and trazodone. Psychotherapy defer to inpt Follow-up/Disposition pt is willing to accept inpt psychiatric care voluntary; please transfer to inpt psych. SARITHA MACIAS MD Nov 22, 2016 14:02
[2016-11-22 19:00] VITALS: BP 136/59; RESP 18
[2016-11-22] MEDS: traZODone 100 MG TAB PO SCH (20:34)
[2016-11-22] MEDS: HYDROCODONE/APAP (5/325) TAB PO PRN (20:39)
[2016-11-23 08:00] VITALS: BP 138/77; PULSE 98; RESP 16
[2016-11-23] MEDS: FLUOXETINE 20 MG CAP PO SCH (08:20)
[2016-11-23] MEDS: OLANZAPINE 5 MG TAB PO SCH (08:20)
[2016-11-23] MEDS: PANTOPRAZOLE (EC) 40 MG TAB PO SCH (09:00)
--- NOTE | 2016-11-23 10:29 | PN ---
Date/Time of Note Date/Time of Note DATE: 11/23/16 TIME: 10:09 Assessment/Plan VTE Prophylaxis VTE Prophylaxis Intervention: ambulation, SCD's Lines/Catheters IV Catheter Type (from Nrsg): Saline Lock Urinary Cath still in place: No Assessment/Plan Assessment/Plan 51-year-old female with: 1. Cervical spine spinal stenosis with myelopathy with known chronic spinal spondylosis. POD #8 C4-5 anterior cervical diskectomy and fusion with interbody graft and C5-6 anterior cervical diskectomy and interbody fusion, C5-6. Patient now ambulatory to bathroom and in hallway. Patient medically and neurosurgically stable to go to inpatient psych as of and d/c order has been placed 11/18, patient fully ambulatory now Pain control with prn [place] 2. Major depressive disorder s/p suicidal attempt. The patient currently is stable but still depressed, has not suicidal intentions and hopelessness x 2 days now and seems to be motivated to voluntary commit to inpatient psych. Tele Psych re-eval today Continue 1:1 sitter. Needs inpatient psychiatric care per psych re-eval yesterday afternoon and patient is willing to voluntary commit to a facility but not able to place. Prophylaxis: SCDs for DVT prophylaxis. Pepcid for GI prophylaxis. DISPOSITION: Tele psych re eval today D/c to inpatient Psych when bed available, medically cleared and stable for discharge as of 11/18. Subjective 24 Hr Interval Summary Free Text/Dictation Patient remains stable and appreciate recommendations from tele psych, Dr Anderson , patient still needs inpatient psych, even if not activeley suicidal currently , she is depressed and known to have attempted suicide when came to ED Medically stable Exam/Review of Systems Vital Signs Vitals Vital Signs Date Time Temp Pulse Resp B/P Pulse Ox O2 Delivery O2 Flow Rate FiO2 11/22/16 19:00 98.3 99 18 136/59 97 Intake and Output 11/22/16 11/22/16 11/23/16 15:00 23:00 07:00 Intake Total 420 ml 200 ml Balance 420 ml 200 ml Exam Constitutional: alert, oriented, well developed Respiratory: clear to auscultation, normal air movement Cardiovascular: nl pulses, regular rate and rhythm Gastrointestinal: non-tender, soft Musculoskeletal: nl extremities to inspection Extremities: normal pulses, other (no edema, clubbing or cyanosis ) 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: POST 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 MANAGER II-XII intact, nl mental status, nl speech, other (getting stronger everyday ) Results Result Diagram: 11/21/16 1350 11/21/16 1350 Medications Medications Current Medications Clonazepam (Klonopin) 1 mg Q8H PRN PO ANXIETY Last administered on 11/22/16 08 :05; Admin Dose 1 MG; Start 11/11/16 at 14:00 Fluoxetine HCl (Prozac) 40 mg DAILY PO Last administered on 11/23/16 08:20; Admin Dose 40 MG; Start 11/12/16 at 09:00 Olanzapine (Zyprexa) 15 mg DAILY PO Last administered on 11/23/16 08:20; Admin Dose 15 MG; Start 11/12/16 at 09:00 Ondansetron HCl (Zofran Inj) 4 mg Q6H PRN IV NAUSEA AND/OR VOMITING; Start 11/11 at 14:00 Acetaminophen (Tylenol Tab) 650 mg Q6H PRN PO PAIN LEVEL 1-3 OR FEVER Last administered on 11/20/16 16:39; Admin Dose 650 MG; Start 11/11/16 at 14:00 Acetaminophen/ Hydrocodone Bitart ([place] (5/325)) 1 tab Q6H PRN PO PAIN LEVEL 4 -6 Last administered on 11/22/16 20:39; Admin Dose 1 TAB; Start 11/11/16 at 14: 00 Docusate Sodium (Colace) 100 mg Q12H PRN PO CONSTIPATION; Start 11/11/16 at 14: 00 Magnesium Hydroxide (Milk Of Mag) 30 ml DAILY PRN PO CONSTIPATION Last administered on 11/18/16 06:24; Admin Dose 30 ML; Start 11/11/16 at 14:00 Bisacodyl (Dulcolax Supp) 10 mg DAILY PRN [place] CONSTIPATION; Start 11/11/16 at 14: 00 Trazodone HCl (Desyrel) 100 mg QHS PO Last administered on 11/22/16 20:34; Admin Dose 100 MG; Start 11/12/16 at 21:00 Pantoprazole (Protonix Tab) 40 mg DAILY@09 PO Last administered on 11/21/16 09 :17; Admin Dose 40 MG; Start 11/14/16 at 09:00 Acetaminophen/ Hydrocodone Bitart ([place] (5/325)) 1 tab Q4H PRN PO PAIN LEVEL 1 -5 Last administered on 11/17/16 18:34; Admin Dose 1 TAB; Start 11/15/16 at 19:30 Acetaminophen/ Hydrocodone Bitart ([place] (5/325)) 2 tab Q4H PRN PO PAIN LEVEL 6 -10 Last administered on 11/20/16 08:51; Admin Dose 2 TAB; Start 11/15/16 at 19: 30 Al Hydrox/Mg Hydrox/Simethicone (Mag-Al Plus) 15 ml Q4H PRN PO CONSTIPATION; Start 11/15/16 at 19:30 Phenol (Cepastat Lozenge) 1 lozenge PRN PRN [place] SORE THROAT; Start 11/15/16 at 19 :30 Diphenhydramine HCl (Benadryl) 50 mg Q6H PRN PO PRURITUS; Start 11/15/16 at 19: 30 Naloxone HCl (Narcan) 0.2 mg Q2M PRN IV DECREASED REPIRATORY RATE; Start at 21:45 Bethanechol Chloride (Urecholine) 25 mg PRN PRN PO UNABLE TO VOID; Start at 07:30 JAE FERRARO Nov 23, 2016 10:23
[2016-11-23] MEDS: clonAZEPAM 0.5 MG TAB PO PRN (15:46)
[2016-11-23 17:00] VITALS: BP 134/67; RESP 20
[2016-11-23 20:00] VITALS: BP 134/61; RESP 20
[2016-11-23] MEDS: traZODone 100 MG TAB PO SCH (21:02)
[2016-11-24 08:30] VITALS: BP 125/82; RESP 18
[2016-11-24] MEDS: OLANZAPINE 5 MG TAB PO SCH (10:40)
[2016-11-24] MEDS: PANTOPRAZOLE (EC) 40 MG TAB PO SCH (10:43)
[2016-11-24] MEDS: FLUOXETINE 20 MG CAP PO SCH (10:43)
--- NOTE | 2016-11-24 12:18 | PN ---
Date/Time of Note Date/Time of Note DATE: 11/24/16 TIME: 12:12 Assessment/Plan VTE Prophylaxis VTE Prophylaxis Intervention: SCD's Lines/Catheters IV Catheter Type (from Nrsg): Saline Lock Urinary Cath still in place: No Assessment/Plan Assessment/Plan 51-year-old female with: 1. Cervical spine spinal stenosis with myelopathy with known chronic spinal spondylosis. POD #9 C4-5 anterior cervical diskectomy and fusion with interbody graft and C5-6 anterior cervical diskectomy and interbody fusion, C5-6. Patient now fully ambulatory to bathroom and in hallway with no assistance. Patient medically and neurosurgically stable to go to inpatient psych as of and d/c order has been placed 11/18. Pain control with prn [place] 2. Major depressive disorder s/p suicidal attempt. The patient currently is stable but still depressed, has not suicidal intentions and hopelessness x 2 days now and seems to be motivated to voluntary commit to inpatient psych. Tele Psych re-eval done this week Continue 1:1 sitter for now. Needs inpatient psychiatric care per psych re-eval this week and patient is willing to voluntary commit to a facility but not able to place so far. Prophylaxis: SCDs for DVT prophylaxis. Pepcid for GI prophylaxis. DISPOSITION: D/c to inpatient Psych/voluntary commitment when bed available, medically cleared and stable for discharge as of 11/18. Subjective 24 Hr Interval Summary Free Text/Dictation Patient doing fairly well medically but psychologically still concerns regarding MDD and fact that she did attempt to commit suicide She is awaiting to go to a psychiatric facility for voluntary commitment Exam/Review of Systems Vital Signs Vitals Vital Signs Date Time Temp Pulse Resp B/P Pulse Ox O2 Delivery O2 Flow Rate FiO2 11/24/16 08:30 97.8 104 18 125/82 96 11/23/16 08:00 Room Air Intake and Output 11/23/16 11/23/16 11/24/16 15:00 23:00 07:00 Intake Total 960 ml 200 ml Balance 960 ml 200 ml Exam Constitutional: alert, oriented, well developed Respiratory: clear to auscultation, normal air movement Cardiovascular: nl pulses, regular rate and rhythm Gastrointestinal: non-tender, soft Musculoskeletal: nl extremities to inspection, nl gait and stance Extremities: normal pulses, other (no edema, clubbing or cyanosis ) 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: 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, nl mental status, nl speech, other (strength almost back to baseline now ) Results Result Diagram: 11/21/16 1350 11/21/16 1350 Medications Medications Current Medications Clonazepam (Klonopin) 1 mg Q8H PRN PO ANXIETY Last administered on 11/23/16 15 :46; Admin Dose 1 MG; Start 11/11/16 at 14:00 Fluoxetine HCl (Prozac) 40 mg DAILY PO Last administered on 11/24/16 10:43; Admin Dose 40 MG; Start 11/12/16 at 09:00 Olanzapine (Zyprexa) 15 mg DAILY PO Last administered on 11/24/16 10:40; Admin Dose 15 MG; Start 11/12/16 at 09:00 Ondansetron HCl (Zofran Inj) 4 mg Q6H PRN IV NAUSEA AND/OR VOMITING; Start 11/11 at 14:00 Acetaminophen (Tylenol Tab) 650 mg Q6H PRN PO PAIN LEVEL 1-3 OR FEVER Last administered on 11/20/16 16:39; Admin Dose 650 MG; Start 11/11/16 at 14:00 Acetaminophen/ Hydrocodone Bitart ([place] (5/325)) 1 tab Q6H PRN PO PAIN LEVEL 4 -6 Last administered on 11/22/16 20:39; Admin Dose 1 TAB; Start 11/11/16 at 14: 00 Docusate Sodium (Colace) 100 mg Q12H PRN PO CONSTIPATION; Start 11/11/16 at 14: 00 Magnesium Hydroxide (Milk Of Mag) 30 ml DAILY PRN PO CONSTIPATION Last administered on 11/18/16 06:24; Admin Dose 30 ML; Start 11/11/16 at 14:00 Bisacodyl (Dulcolax Supp) 10 mg DAILY PRN [place] CONSTIPATION; Start 11/11/16 at 14: 00 Trazodone HCl (Desyrel) 100 mg QHS PO Last administered on 11/23/16 21:02; Admin Dose 100 MG; Start 11/12/16 at 21:00 Pantoprazole (Protonix Tab) 40 mg DAILY@09 PO Last administered on 11/24/16 10 :43; Admin Dose 40 MG; Start 11/14/16 at 09:00 Acetaminophen/ Hydrocodone Bitart ([place] (5/325)) 1 tab Q4H PRN PO PAIN LEVEL 1 -5 Last administered on 11/17/16 18:34; Admin Dose 1 TAB; Start 11/15/16 at 19:30 Acetaminophen/ Hydrocodone Bitart ([place] (5/325)) 2 tab Q4H PRN PO PAIN LEVEL 6 -10 Last administered on 11/20/16 08:51; Admin Dose 2 TAB; Start 11/15/16 at 19: 30 Al Hydrox/Mg Hydrox/Simethicone (Mag-Al Plus) 15 ml Q4H PRN PO CONSTIPATION; Start 11/15/16 at 19:30 Phenol (Cepastat Lozenge) 1 lozenge PRN PRN [place] SORE THROAT; Start 11/15/16 at 19 :30 Diphenhydramine HCl (Benadryl) 50 mg Q6H PRN PO PRURITUS; Start 11/15/16 at 19: 30 Naloxone HCl (Narcan) 0.2 mg Q2M PRN IV DECREASED REPIRATORY RATE; Start at 21:45 Bethanechol Chloride (Urecholine) 25 mg PRN PRN PO UNABLE TO VOID; Start at 07:30 JAE FERRARO Nov 24, 2016 12:18
[2016-11-24 19:53] VITALS: BP 132/81; PULSE 90; RESP 18
[2016-11-24] MEDS: HYDROCODONE/APAP (5/325) TAB PO PRN (21:13)
[2016-11-24] MEDS: traZODone 100 MG TAB PO SCH (21:13)
[2016-11-25 08:41] VITALS: BP 111/77; RESP 19
[2016-11-25] MEDS: PANTOPRAZOLE (EC) 40 MG TAB PO SCH (08:45)
[2016-11-25] MEDS: FLUOXETINE 20 MG CAP PO SCH (08:45)
[2016-11-25] MEDS: OLANZAPINE 5 MG TAB PO SCH (08:45)
[2016-11-25] MEDS: HYDROCODONE/APAP (5/325) TAB PO PRN ×2 (08:46→14:44)
--- NOTE | 2016-11-25 10:27 | PN ---
Date/Time of Note Date/Time of Note DATE: 11/25/16 TIME: 10:24 Assessment/Plan VTE Prophylaxis VTE Prophylaxis Intervention: SCD's Lines/Catheters IV Catheter Type (from Nrsg): Saline Lock Urinary Cath still in place: No Assessment/Plan Assessment/Plan 51-year-old female with: 1. Cervical spine spinal stenosis with myelopathy with known chronic spinal spondylosis. POD #10 C4-5 anterior cervical diskectomy and fusion with interbody graft and C5-6 anterior cervical diskectomy and interbody fusion, C5-6. Patient now fully ambulatory to bathroom and in hallway with no assistance. Patient medically and neurosurgically stable to go to inpatient psych as of and d/c order has been placed 11/18. Pain control with prn [place] 2. Major depressive disorder s/p suicidal attempt. The patient currently is stable but still depressed, has not suicidal intentions and hopelessness x 2 days now and seems to be motivated to voluntary commit to inpatient psych. Tele Psych re-eval done this week Continue 1:1 sitter for now. Needs inpatient psychiatric care per psych re-eval this week and patient is willing to voluntary commit to a facility but not able to place so far. Prophylaxis: SCDs for DVT prophylaxis. Pepcid for GI prophylaxis. DISPOSITION: D/c to inpatient Psych/voluntary commitment when bed available, medically cleared and stable for discharge as of 11/18. Subjective 24 Hr Interval Summary Free Text/Dictation Patient awaiting placement in inpatient psych as voluntary commitment per Psych eval 11/21, as patient still depressed and did attempt suicide prior to admission, Medically doing much better and stable Exam/Review of Systems Vital Signs Vitals Vital Signs Date Time Temp Pulse Resp B/P Pulse Ox O2 Delivery O2 Flow Rate FiO2 11/25/16 08:41 98.1 86 19 111/77 98 11/24/16 19:53 Room Air Intake and Output 11/24/16 11/24/16 11/25/16 15:00 23:00 07:00 Intake Total 1480 ml 480 ml Balance 1480 ml 480 ml Exam Constitutional: alert, oriented, well developed Neck: other (incision site c/d/i) Respiratory: clear to auscultation, normal air movement Cardiovascular: nl pulses, regular rate and rhythm Gastrointestinal: non-tender, soft Musculoskeletal: nl extremities to inspection Extremities: normal pulses, other (no edema, clubbing or cyanosis ) 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: PROFESSOR OF SURGERY II-XII intact, nl mental status, nl speech, nl strength Results Result Diagram: 11/21/16 1350 11/21/16 1350 Medications Medications Current Medications Clonazepam (Klonopin) 1 mg Q8H PRN PO ANXIETY Last administered on 11/23/16 15 :46; Admin Dose 1 MG; Start 11/11/16 at 14:00 Fluoxetine HCl (Prozac) 40 mg DAILY PO Last administered on 11/25/16 08:45; Admin Dose 40 MG; Start 11/12/16 at 09:00 Olanzapine (Zyprexa) 15 mg DAILY PO Last administered on 11/25/16 08:45; Admin Dose 15 MG; Start 11/12/16 at 09:00 Ondansetron HCl (Zofran Inj) 4 mg Q6H PRN IV NAUSEA AND/OR VOMITING; Start 11/11 at 14:00 Acetaminophen (Tylenol Tab) 650 mg Q6H PRN PO PAIN LEVEL 1-3 OR FEVER Last administered on 11/20/16 16:39; Admin Dose 650 MG; Start 11/11/16 at 14:00 Acetaminophen/ Hydrocodone Bitart ([place] (5/325)) 1 tab Q6H PRN PO PAIN LEVEL 4 -6 Last administered on 11/25/16 08:46; Admin Dose 1 TAB; Start 11/11/16 at 14: 00 Docusate Sodium (Colace) 100 mg Q12H PRN PO CONSTIPATION; Start 11/11/16 at 14: 00 Magnesium Hydroxide (Milk Of Mag) 30 ml DAILY PRN PO CONSTIPATION Last administered on 11/18/16 06:24; Admin Dose 30 ML; Start 11/11/16 at 14:00 Bisacodyl (Dulcolax Supp) 10 mg DAILY PRN [place] CONSTIPATION; Start 11/11/16 at 14: 00 Trazodone HCl (Desyrel) 100 mg QHS PO Last administered on 11/24/16 21:13; Admin Dose 100 MG; Start 11/12/16 at 21:00 Pantoprazole (Protonix Tab) 40 mg DAILY@09 PO Last administered on 11/25/16 08 :45; Admin Dose 40 MG; Start 11/14/16 at 09:00 Acetaminophen/ Hydrocodone Bitart ([place] (5/325)) 1 tab Q4H PRN PO PAIN LEVEL 1 -5 Last administered on 11/17/16 18:34; Admin Dose 1 TAB; Start 11/15/16 at 19:30 Acetaminophen/ Hydrocodone Bitart ([place] (5/325)) 2 tab Q4H PRN PO PAIN LEVEL 6 -10 Last administered on 11/20/16 08:51; Admin Dose 2 TAB; Start 11/15/16 at 19: 30 Al Hydrox/Mg Hydrox/Simethicone (Mag-Al Plus) 15 ml Q4H PRN PO CONSTIPATION; Start 11/15/16 at 19:30 Phenol (Cepastat Lozenge) 1 lozenge PRN PRN [place] SORE THROAT; Start 11/15/16 at 19 :30 Diphenhydramine HCl (Benadryl) 50 mg Q6H PRN PO PRURITUS; Start 11/15/16 at 19: 30 Naloxone HCl (Narcan) 0.2 mg Q2M PRN IV DECREASED REPIRATORY RATE; Start at 21:45 Bethanechol Chloride (Urecholine) 25 mg PRN PRN PO UNABLE TO VOID; Start at 07:30 JAE FERRARO Nov 25, 2016 10:27
[2016-11-25 19:23] VITALS: BP 122/69; RESP 18
[2016-11-25] MEDS: traZODone 100 MG TAB PO SCH (20:39)
[2016-11-26] MEDS: HYDROCODONE/APAP (5/325) TAB PO PRN (07:06)
[2016-11-26 07:28] VITALS: BP 113/65; RESP 16
[2016-11-26] MEDS: clonAZEPAM 0.5 MG TAB PO PRN (11:37)
[2016-11-26] MEDS: PANTOPRAZOLE (EC) 40 MG TAB PO SCH (11:44)
[2016-11-26] MEDS: FLUOXETINE 20 MG CAP PO SCH (11:44)
[2016-11-26] MEDS: OLANZAPINE 5 MG TAB PO SCH (11:44)
--- NOTE | 2016-11-26 11:49 | PN ---
Date/Time of Note Date/Time of Note DATE: 11/26/16 TIME: 11:44 Assessment/Plan VTE Prophylaxis VTE Prophylaxis Intervention: ambulation, SCD's Lines/Catheters IV Catheter Type (from Nrsg): Saline Lock Urinary Cath still in place: No Assessment/Plan Assessment/Plan 51-year-old female with: 1. Cervical spine spinal stenosis with myelopathy with known chronic spinal spondylosis. POD #11 C4-5 anterior cervical diskectomy and fusion with interbody graft and C5-6 anterior cervical diskectomy and interbody fusion, C5-6. Patient now fully ambulatory to bathroom and in hallway with no assistance. Patient medically and neurosurgically stable to go to inpatient psych as of and d/c order has been placed 11/18. Pain control with prn [place] Call to Dr. Ger Ugalde covering Dr. [place] 2. Major depressive disorder s/p suicidal attempt. The patient currently is stable but still depressed with a flat affect. She has not had suicidal intentions and hopelessness x 3 days now and seems to be motivated to voluntary commit to inpatient psych. Tele Psych re-eval done this week, and inpatient psych is recommended. Continue 1:1 sitter for now. Needs inpatient psychiatric care per psych re-eval this week and patient is willing to voluntary commit to a facility but not able to place so far. Prophylaxis: SCDs/early ambulation for DVT prophylaxis. Pepcid for GI prophylaxis. DISPOSITION: D/C to inpatient Psych/voluntary commitment when bed available, medically cleared and stable for discharge as of 11/18. Subjective 24 Hr Interval Summary Free Text/Dictation Flat affect, but otherwise no complaints. Exam/Review of Systems Vital Signs Vitals Vital Signs Date Time Temp Pulse Resp B/P Pulse Ox O2 Delivery O2 Flow Rate FiO2 11/26/16 07:28 98.0 81 16 113/65 37 11/24/16 19:53 Room Air Intake and Output 11/25/16 11/25/16 11/26/16 15:00 23:00 07:00 Intake Total 1050 ml 500 ml Balance 1050 ml 500 ml Exam Constitutional: alert, oriented Psych: no complaints Head: normocephalic Eyes: nl conjunctiva ENMT: nl external ears & nose Neck: supple Respiratory: clear to auscultation Cardiovascular: regular rate and rhythm Gastrointestinal: soft Musculoskeletal: nl extremities to inspection Extremities: normal pulses 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: 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-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 Medications Medications Current Medications Clonazepam (Klonopin) 1 mg Q8H PRN PO ANXIETY Last administered on 11/23/16 15 :46; Admin Dose 1 MG; Start 11/11/16 at 14:00 Fluoxetine HCl (Prozac) 40 mg DAILY PO Last administered on 11/25/16 08:45; Admin Dose 40 MG; Start 11/12/16 at 09:00 Olanzapine (Zyprexa) 15 mg DAILY PO Last administered on 11/25/16 08:45; Admin Dose 15 MG; Start 11/12/16 at 09:00 Ondansetron HCl (Zofran Inj) 4 mg Q6H PRN IV NAUSEA AND/OR VOMITING; Start 11/11 at 14:00 Acetaminophen (Tylenol Tab) 650 mg Q6H PRN PO PAIN LEVEL 1-3 OR FEVER Last administered on 11/20/16 16:39; Admin Dose 650 MG; Start 11/11/16 at 14:00 Acetaminophen/ Hydrocodone Bitart ([place] (5/325)) 1 tab Q6H PRN PO PAIN LEVEL 4 -6 Last administered on 11/25/16 14:44; Admin Dose 1 TAB; Start 11/11/16 at 14: 00 Docusate Sodium (Colace) 100 mg Q12H PRN PO CONSTIPATION Last administered on 18:40; Admin Dose 100 MG; Start 11/11/16 at 14:00 Magnesium Hydroxide (Milk Of Mag) 30 ml DAILY PRN PO CONSTIPATION Last administered on 11/18/16 06:24; Admin Dose 30 ML; Start 11/11/16 at 14:00 Bisacodyl (Dulcolax Supp) 10 mg DAILY PRN [place] CONSTIPATION; Start 11/11/16 at 14: 00 Trazodone HCl (Desyrel) 100 mg QHS PO Last administered on 11/25/16 20:39; Admin Dose 100 MG; Start 11/12/16 at 21:00 Pantoprazole (Protonix Tab) 40 mg DAILY@09 PO Last administered on 11/25/16 08 :45; Admin Dose 40 MG; Start 11/14/16 at 09:00 Acetaminophen/ Hydrocodone Bitart ([place] (5/325)) 1 tab Q4H PRN PO PAIN LEVEL 1 -5 Last administered on 11/26/16 07:06; Admin Dose 1 TAB; Start 11/15/16 at 19: 30 Acetaminophen/ Hydrocodone Bitart ([place] (5/325)) 2 tab Q4H PRN PO PAIN LEVEL 6 -10 Last administered on 11/20/16 08:51; Admin Dose 2 TAB; Start 11/15/16 at 19: 30 Al Hydrox/Mg Hydrox/Simethicone (Mag-Al Plus) 15 ml Q4H PRN PO CONSTIPATION Last administered on 11/25/16 18:40; Admin Dose 15 ML; Start 11/15/16 at 19:30 Phenol (Cepastat Lozenge) 1 lozenge PRN PRN [place] SORE THROAT; Start 11/15/16 at 19 :30 Diphenhydramine HCl (Benadryl) 50 mg Q6H PRN PO PRURITUS; Start 11/15/16 at 19: 30 Naloxone HCl (Narcan) 0.2 mg Q2M PRN IV DECREASED REPIRATORY RATE; Start at 21:45 Bethanechol Chloride (Urecholine) 25 mg PRN PRN PO UNABLE TO VOID; Start at 07:30 DONELL HANKINS MD Nov 26, 2016 11:49
[2016-11-26 19:00] VITALS: BP 121/70; PULSE 94; RESP 15
[2016-11-26] MEDS: ACETAMINOPHEN 325 MG TAB PO PRN (20:04)
[2016-11-26] MEDS: traZODone 100 MG TAB PO SCH (20:04)
[2016-11-27 07:04] VITALS: BP 126/68; RESP 16
[2016-11-27] MEDS: OLANZAPINE 5 MG TAB PO SCH (10:23)
[2016-11-27] MEDS: FLUOXETINE 20 MG CAP PO SCH (10:24)
[2016-11-27] MEDS: HYDROCODONE/APAP (5/325) TAB PO PRN ×2 (10:25→20:15)
[2016-11-27] MEDS: PANTOPRAZOLE (EC) 40 MG TAB PO SCH (10:28)
--- NOTE | 2016-11-27 16:05 | PN ---
Date/Time of Note Date/Time of Note DATE: 11/27/16 TIME: 16:02 Assessment/Plan VTE Prophylaxis VTE Prophylaxis Intervention: ambulation, SCD's Lines/Catheters IV Catheter Type (from Nrsg): Peripheral IV Urinary Cath still in place: No Assessment/Plan Assessment/Plan 51-year-old female with: 1. Cervical spine spinal stenosis with myelopathy with known chronic spinal spondylosis. POD #12 C4-5 anterior cervical diskectomy and fusion with interbody graft and C5-6 anterior cervical diskectomy and interbody fusion, C5-6. Patient now fully ambulatory to bathroom and in hallway with no assistance. Patient medically and neurosurgically stable to go to inpatient psych as of and d/c order has been placed 11/18. Pain control with prn [place] Will likely need collar for 6 weeks post-surgery. This is a soft collar and will not pose any issue to transfering to psych facility. 2. Major depressive disorder s/p suicidal attempt. The patient currently is stable but still depressed with a flat affect. She has suicidal intentions and hopelessness today, verbalizing to sitter. She is still motivated to voluntary commit to inpatient psych. Tele Psych re-eval done last week, and inpatient psych is recommended. Continue 1:1 sitter for now. Will start SSRI. Needs inpatient psychiatric care per psych re-eval this week and patient is willing to voluntary commit to a facility but not able to place so far. Prophylaxis: SCDs/early ambulation for DVT prophylaxis. Pepcid for GI prophylaxis. DISPOSITION: D/C to inpatient Psych/voluntary commitment when bed available, medically cleared and stable for discharge as of 11/18. Subjective 24 Hr Interval Summary Free Text/Dictation Patient with flat affect. She verbalized to sitter that she still wants to harm herself/end her life. Exam/Review of Systems Vital Signs Vitals Vital Signs Date Time Temp Pulse Resp B/P Pulse Ox O2 Delivery O2 Flow Rate FiO2 11/27/16 07:04 98.0 66 16 126/68 100 11/26/16 19:00 Room Air Intake and Output 11/26/16 11/26/16 11/27/16 15:00 23:00 07:00 Intake Total 300 ml 500 ml Output Total 900 ml Balance 300 ml -400 ml Exam Constitutional: alert, oriented Psych: depression, no complaints Head: normocephalic Eyes: nl conjunctiva ENMT: nl external ears & nose Neck: supple Respiratory: clear to auscultation Cardiovascular: regular rate and rhythm Gastrointestinal: soft Genitourinary - Female: nl adnexae Extremities: normal pulses Medications Medications Current Medications Clonazepam (Klonopin) 1 mg Q8H PRN PO ANXIETY Last administered on 11/26/16 11 :37; Admin Dose 1 MG; Start 11/11/16 at 14:00 Fluoxetine HCl (Prozac) 40 mg DAILY PO Last administered on 11/27/16 10:24; Admin Dose 40 MG; Start 11/12/16 at 09:00 Olanzapine (Zyprexa) 15 mg DAILY PO Last administered on 11/27/16 10:23; Admin Dose 15 MG; Start 11/12/16 at 09:00 Ondansetron HCl (Zofran Inj) 4 mg Q6H PRN IV NAUSEA AND/OR VOMITING; Start 11/11 at 14:00 Acetaminophen (Tylenol Tab) 650 mg Q6H PRN PO PAIN LEVEL 1-3 OR FEVER Last administered on 11/26/16 20:04; Admin Dose 650 MG; Start 11/11/16 at 14:00 Acetaminophen/ Hydrocodone Bitart ([place] (5/325)) 1 tab Q6H PRN PO PAIN LEVEL 4 -6 Last administered on 11/25/16 14:44; Admin Dose 1 TAB; Start 11/11/16 at 14: 00 Docusate Sodium (Colace) 100 mg Q12H PRN PO CONSTIPATION Last administered on 18:40; Admin Dose 100 MG; Start 11/11/16 at 14:00 Magnesium Hydroxide (Milk Of Mag) 30 ml DAILY PRN PO CONSTIPATION Last administered on 11/18/16 06:24; Admin Dose 30 ML; Start 11/11/16 at 14:00 Bisacodyl (Dulcolax Supp) 10 mg DAILY PRN [place] CONSTIPATION; Start 11/11/16 at 14: 00 Trazodone HCl (Desyrel) 100 mg QHS PO Last administered on 11/26/16 20:04; Admin Dose 100 MG; Start 11/12/16 at 21:00 Pantoprazole (Protonix Tab) 40 mg DAILY@09 PO Last administered on 11/27/16 10 :28; Admin Dose 40 MG; Start 11/14/16 at 09:00 Acetaminophen/ Hydrocodone Bitart ([place] (5/325)) 1 tab Q4H PRN PO PAIN LEVEL 1 -5 Last administered on 11/27/16 10:25; Admin Dose 1 TAB; Start 11/15/16 at 19: 30 Acetaminophen/ Hydrocodone Bitart ([place] (5/325)) 2 tab Q4H PRN PO PAIN LEVEL 6 -10 Last administered on 11/20/16 08:51; Admin Dose 2 TAB; Start 11/15/16 at 19: 30 Al Hydrox/Mg Hydrox/Simethicone (Mag-Al Plus) 15 ml Q4H PRN PO CONSTIPATION Last administered on 11/25/16 18:40; Admin Dose 15 ML; Start 11/15/16 at 19:30 Phenol (Cepastat Lozenge) 1 lozenge PRN PRN [place] SORE THROAT; Start 11/15/16 at 19 :30 Diphenhydramine HCl (Benadryl) 50 mg Q6H PRN PO PRURITUS; Start 11/15/16 at 19: 30 Naloxone HCl (Narcan) 0.2 mg Q2M PRN IV DECREASED REPIRATORY RATE; Start at 21:45 Bethanechol Chloride (Urecholine) 25 mg PRN PRN PO UNABLE TO VOID; Start at 07:30 DONELL HANKINS MD Nov 27, 2016 16:05
[2016-11-27] MEDS: traZODone 100 MG TAB PO SCH (20:14)
[2016-11-27 23:50] VITALS: BP_SYST 120; BP_SYST 123; BP_DIAS 68; BP_DIAS 70; PULSE 100; PULSE 80; RESP 16; RESP 24
[2016-11-28] MEDS: HYDROCODONE/APAP (5/325) TAB PO PRN ×2 (07:18→19:47)
[2016-11-28 07:48] VITALS: BP 106/55; RESP 16
[2016-11-28] MEDS: PANTOPRAZOLE (EC) 40 MG TAB PO SCH (09:00)
[2016-11-28] MEDS: FLUOXETINE 20 MG CAP PO SCH (10:20)
[2016-11-28] MEDS: OLANZAPINE 5 MG TAB PO SCH (10:21)
[2016-11-28] MEDS: clonAZEPAM 0.5 MG TAB PO PRN ×2 (10:22→20:54)
--- NOTE | 2016-11-28 11:43 | PN ---
Date/Time of Note Date/Time of Note DATE: 11/28/16 TIME: 11:35 Assessment/Plan VTE Prophylaxis VTE Prophylaxis Intervention: SCD's Lines/Catheters IV Catheter Type (from Nrsg): Peripheral IV Urinary Cath still in place: No Assessment/Plan Assessment/Plan 51-year-old female with: 1. Cervical spine spinal stenosis with myelopathy with known chronic spinal spondylosis. POD #12 C4-5 anterior cervical diskectomy and fusion with interbody graft and C5-6 anterior cervical diskectomy and interbody fusion. Patient now fully ambulatory to bathroom and in hallway with no assistance. Patient medically and neurosurgically stable to go to inpatient psych as of and d/c order has been placed 11/18. Pain control with prn [place] Patient with soft neck collar 2. Major depressive disorder s/p suicidal attempt. The patient currently is stable but still depressed, has not suicidal intentions and hopelessness x 2 days now and seems to be motivated to voluntary commit to inpatient psych. Tele Psych re-eval done this week Continue 1:1 sitter for now. Needs inpatient psychiatric care per psych re-eval this week and patient is willing to voluntary commit to a facility but not able to place so far. Prophylaxis: SCDs for DVT prophylaxis. Pepcid for GI prophylaxis. DISPOSITION: D/c to inpatient Psych/voluntary commitment when bed available, medically cleared and stable for discharge as of 11/18. Subjective 24 Hr Interval Summary Free Text/Dictation Patient doing well clinically but still depressed and on/off expressing hopelessness Exam/Review of Systems Vital Signs Vitals Vital Signs Date Time Temp Pulse Resp B/P Pulse Ox O2 Delivery O2 Flow Rate FiO2 11/28/16 07:48 97.6 88 16 106/55 94 11/27/16 23:50 Nasal Cannula Intake and Output 11/27/16 11/27/16 11/28/16 15:00 23:00 07:00 Intake Total 1100 ml Output Total 1450 ml Balance -350 ml Exam Constitutional: alert, oriented Respiratory: clear to auscultation, normal air movement Cardiovascular: nl pulses, regular rate and rhythm Gastrointestinal: non-tender, soft Musculoskeletal: nl extremities to inspection, nl gait and stance Extremities: normal pulses, other (no edema, clubbing or cyanosis ) 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: ALLIANCE CONSULTANT II-XII intact, nl mental status, nl speech, nl strength Medications Medications Current Medications Clonazepam (Klonopin) 1 mg Q8H PRN PO ANXIETY Last administered on 11/28/16 10 :22; Admin Dose 1 MG; Start 11/11/16 at 14:00 Fluoxetine HCl (Prozac) 40 mg DAILY PO Last administered on 11/28/16 10:20; Admin Dose 40 MG; Start 11/12/16 at 09:00 Olanzapine (Zyprexa) 15 mg DAILY PO Last administered on 11/28/16 10:21; Admin Dose 15 MG; Start 11/12/16 at 09:00 Ondansetron HCl (Zofran Inj) 4 mg Q6H PRN IV NAUSEA AND/OR VOMITING; Start 11/11 at 14:00 Acetaminophen (Tylenol Tab) 650 mg Q6H PRN PO PAIN LEVEL 1-3 OR FEVER Last administered on 11/26/16 20:04; Admin Dose 650 MG; Start 11/11/16 at 14:00 Acetaminophen/ Hydrocodone Bitart ([place] (5/325)) 1 tab Q6H PRN PO PAIN LEVEL 4 -6 Last administered on 11/28/16 07:18; Admin Dose 1 TAB; Start 11/11/16 at 14: 00 Docusate Sodium (Colace) 100 mg Q12H PRN PO CONSTIPATION Last administered on 18:40; Admin Dose 100 MG; Start 11/11/16 at 14:00 Magnesium Hydroxide (Milk Of Mag) 30 ml DAILY PRN PO CONSTIPATION Last administered on 11/18/16 06:24; Admin Dose 30 ML; Start 11/11/16 at 14:00 Bisacodyl (Dulcolax Supp) 10 mg DAILY PRN [place] CONSTIPATION; Start 11/11/16 at 14: 00 Trazodone HCl (Desyrel) 100 mg QHS PO Last administered on 11/27/16 20:14; Admin Dose 100 MG; Start 11/12/16 at 21:00 Pantoprazole (Protonix Tab) 40 mg DAILY@09 PO Last administered on 11/27/16 10 :28; Admin Dose 40 MG; Start 11/14/16 at 09:00 Acetaminophen/ Hydrocodone Bitart ([place] (5/325)) 1 tab Q4H PRN PO PAIN LEVEL 1 -5 Last administered on 11/27/16 10:25; Admin Dose 1 TAB; Start 11/15/16 at 19: 30 Acetaminophen/ Hydrocodone Bitart ([place] (5/325)) 2 tab Q4H PRN PO PAIN LEVEL 6 -10 Last administered on 11/20/16 08:51; Admin Dose 2 TAB; Start 11/15/16 at 19: 30 Al Hydrox/Mg Hydrox/Simethicone (Mag-Al Plus) 15 ml Q4H PRN PO CONSTIPATION Last administered on 11/25/16 18:40; Admin Dose 15 ML; Start 11/15/16 at 19:30 Phenol (Cepastat Lozenge) 1 lozenge PRN PRN [place] SORE THROAT; Start 11/15/16 at 19 :30 Diphenhydramine HCl (Benadryl) 50 mg Q6H PRN PO PRURITUS; Start 11/15/16 at 19: 30 Naloxone HCl (Narcan) 0.2 mg Q2M PRN IV DECREASED REPIRATORY RATE; Start at 21:45 Bethanechol Chloride (Urecholine) 25 mg PRN PRN PO UNABLE TO VOID; Start at 07:30 JAE FERRARO Nov 28, 2016 11:43
[2016-11-28 19:41] VITALS: BP 131/80; RESP 18
[2016-11-28] MEDS: traZODone 100 MG TAB PO SCH (21:00)
[2016-11-29 07:47] VITALS: BP 138/68; RESP 18
[2016-11-29] MEDS: OLANZAPINE 5 MG TAB PO SCH (08:50)
[2016-11-29] MEDS: FLUOXETINE 20 MG CAP PO SCH (08:51)
[2016-11-29] MEDS: PANTOPRAZOLE (EC) 40 MG TAB PO SCH (08:51)
--- NOTE | 2016-11-29 11:06 | PN ---
Date/Time of Note Date/Time of Note DATE: 11/29/16 TIME: 10:58 Assessment/Plan VTE Prophylaxis VTE Prophylaxis Intervention: SCD's Lines/Catheters IV Catheter Type (from Nrsg): [place] Urinary Cath still in place: No Assessment/Plan Assessment/Plan 51-year-old female with: 1. Cervical spine spinal stenosis with myelopathy with known chronic spinal spondylosis. POD #13 C4-5 anterior cervical diskectomy and fusion with interbody graft and C5-6 anterior cervical diskectomy and interbody fusion. Patient now fully ambulatory to bathroom and in hallway with no assistance. Patient medically and neurosurgically stable to go to inpatient psych as of and d/c order has been placed 11/18. Pain control with prn [place] Patient with soft neck collar Repeating CBC, CMP, UA, Urine drug screen today for d/c needs to inpatient psych 2. Major depressive disorder s/p suicidal attempt. The patient currently is stable but still depressed, has not suicidal intentions and hopelessness today but has been on/off this weekend and seems still motivated to voluntary commit to inpatient psych. Tele Psych re-eval done last week Continue 1:1 sitter for now unless we can have d/c sitter if can get front room with direct view from RN station . Needs inpatient psychiatric care per psych re-eval last week and patient is willing to voluntary commit to a facility but not able to place so far. Prophylaxis: SCDs for DVT prophylaxis. Pepcid for GI prophylaxis. DISPOSITION: D/c to inpatient Psych/voluntary commitment when bed available, medically cleared and stable for discharge as of 11/18. Subjective 24 Hr Interval Summary Free Text/Dictation Patient remains medically stable, still awaiting psych placement Per social media content manager needs new labs today and will re-send info to voluntary psych facility Exam/Review of Systems Vital Signs Vitals Vital Signs Date Time Temp Pulse Resp B/P Pulse Ox O2 Delivery O2 Flow Rate FiO2 11/29/16 07:47 98.2 95 18 138/68 96 11/27/16 23:50 Nasal Cannula Intake and Output 11/28/16 11/28/16 11/29/16 15:00 23:00 07:00 Intake Total 350 ml Balance 350 ml Exam Constitutional: alert, oriented, well developed Cardiovascular: nl pulses, regular rate and rhythm Gastrointestinal: non-tender, soft Musculoskeletal: nl extremities to inspection Extremities: normal pulses, other (no edema, clubbing or cyanosis ) 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 intact, nl mental status, nl speech, nl strength Medications Medications Current Medications Clonazepam (Klonopin) 1 mg Q8H PRN PO ANXIETY Last administered on 11/28/16 20 :54; Admin Dose 1 MG; Start 11/11/16 at 14:00 Fluoxetine HCl (Prozac) 40 mg DAILY PO Last administered on 11/29/16 08:51; Admin Dose 40 MG; Start 11/12/16 at 09:00 Olanzapine (Zyprexa) 15 mg DAILY PO Last administered on 11/29/16 08:50; Admin Dose 15 MG; Start 11/12/16 at 09:00 Ondansetron HCl (Zofran Inj) 4 mg Q6H PRN IV NAUSEA AND/OR VOMITING; Start 11/11 at 14:00 Acetaminophen (Tylenol Tab) 650 mg Q6H PRN PO PAIN LEVEL 1-3 OR FEVER Last administered on 11/26/16 20:04; Admin Dose 650 MG; Start 11/11/16 at 14:00 Acetaminophen/ Hydrocodone Bitart ([place] (5/325)) 1 tab Q6H PRN PO PAIN LEVEL 4 -6 Last administered on 11/28/16 19:47; Admin Dose 1 TAB; Start 11/11/16 at 14: 00 Docusate Sodium (Colace) 100 mg Q12H PRN PO CONSTIPATION Last administered on 18:40; Admin Dose 100 MG; Start 11/11/16 at 14:00 Magnesium Hydroxide (Milk Of Mag) 30 ml DAILY PRN PO CONSTIPATION Last administered on 11/18/16 06:24; Admin Dose 30 ML; Start 11/11/16 at 14:00 Bisacodyl (Dulcolax Supp) 10 mg DAILY PRN [place] CONSTIPATION; Start 11/11/16 at 14: 00 Trazodone HCl (Desyrel) 100 mg QHS PO Last administered on 11/28/16 21:00; Admin Dose 100 MG; Start 11/12/16 at 21:00 Pantoprazole (Protonix Tab) 40 mg DAILY@09 PO Last administered on 11/27/16 10 :28; Admin Dose 40 MG; Start 11/14/16 at 09:00 Acetaminophen/ Hydrocodone Bitart ([place] (5/325)) 1 tab Q4H PRN PO PAIN LEVEL 1 -5 Last administered on 11/27/16 10:25; Admin Dose 1 TAB; Start 11/15/16 at 19: 30 Acetaminophen/ Hydrocodone Bitart ([place] (5/325)) 2 tab Q4H PRN PO PAIN LEVEL 6 -10 Last administered on 11/20/16 08:51; Admin Dose 2 TAB; Start 11/15/16 at 19: 30 Al Hydrox/Mg Hydrox/Simethicone (Mag-Al Plus) 15 ml Q4H PRN PO CONSTIPATION Last administered on 11/25/16 18:40; Admin Dose 15 ML; Start 11/15/16 at 19:30 Phenol (Cepastat Lozenge) 1 lozenge PRN PRN [place] SORE THROAT; Start 11/15/16 at 19 :30 Diphenhydramine HCl (Benadryl) 50 mg Q6H PRN PO PRURITUS; Start 11/15/16 at 19: 30 Naloxone HCl (Narcan) 0.2 mg Q2M PRN IV DECREASED REPIRATORY RATE; Start at 21:45 Bethanechol Chloride (Urecholine) 25 mg PRN PRN PO UNABLE TO VOID; Start at 07:30 JAE FERRARO Nov 29, 2016 11:06
[2016-11-29 11:56] LABS: BASOPHILS % 0.5 % (0.0-2.0); EOSINOPHILS % 0.7 % (0.0-7.0); HEMATOCRIT 36.2 % (37.0-47.0); LYMPHOCYTES # 1.8 10^3/ul (0.8-2.9); LYMPHOCYTES % 30.9 % (15.0-51.0); MEAN CORPUSCULAR HEMOGLOBIN 27.2 pg (29.0-33.0); MEAN CORPUSCULAR HGB CONC 33.1 g/dl (32.0-37.0); MEAN CORPUSCULAR VOLUME 82.3 fl (82.0-101.0); MEAN PLATELET VOLUME 8.6 fl (7.4-10.4); MONOCYTE # 0.4 10^3/ul (0.3-0.9); MONOCYTES % 6.3 % (0.0-11.0); NEUTROPHIL # 3.5 10^3/ul (1.6-7.5); NEUTROPHILS % 61.6 % (39.0-77.0); PLATELET COUNT 355 10^3/UL (140-440); RED BLOOD COUNT 4.39 10^6/ul (4.20-5.40); RED CELL DISTRIBUTION WIDTH 13.9 % (11.5-14.5); UNCORRECTED WBC 5.7 10^3/ul (4.8-10.8); WHITE BLOOD COUNT 5.7 10^3/ul (4.8-10.8)
[2016-11-29 12:01] LABS: CONDITION 1
[2016-11-29 12:04] LABS: ALBUMIN 3.7 g/dl (3.3-4.9)
[2016-11-29 12:05] LABS: POTASSIUM 4.1 mmol/L (3.5-5.1)
[2016-11-29 12:07] LABS: ALBUMIN/GLOBULIN RATIO 1.19; BILIRUBIN,INDIRECT 0.1 mg/dl (0-1.1); BILIRUBIN,TOTAL 0.1 mg/dl (0.2-1.3); CREATININE 0.58 mg/dl (0.44-1.00); TOTAL PROTEIN 6.8 g/dl (6.1-8.1)
[2016-11-29 12:08] LABS: CALCIUM 9.3 mg/dl (8.4-10.2)
[2016-11-29 12:54] LABS: ADD UMIC NO; URINE BILIRUBIN (Dip) NEGATIVE (NEGATIVE); URINE BLOOD (Dip) NEGATIVE (NEGATIVE); URINE COLOR LT. YELLOW (YELLOW); URINE GLUCOSE (Dip) NEGATIVE (NEGATIVE); URINE KETONES (Dip) NEGATIVE (NEGATIVE); URINE LEUKOCYTE ESTERASE (Dip) NEGATIVE (NEGATIVE); URINE NITRITE (Dip) NEGATIVE (NEGATIVE); URINE TOTAL PROTEIN (Dip) NEGATIVE (NEGATIVE); URINE UROBILINOGEN (Dip) 0.2 E.U./dL (0.1-1.0)
[2016-11-29 13:07] LABS: BARBITURATES NEGATIVE (NEGATIVE); BENZODIAZEPINES NEGATIVE (NEGATIVE); CANNABINOIDS NEGATIVE (NEGATIVE); COCAINE NEGATIVE (NEGATIVE); OPIATES NEGATIVE (NEGATIVE)
[2016-11-29] MEDS: clonAZEPAM 0.5 MG TAB PO PRN ×2 (13:50→20:21)
[2016-11-29] MEDS: HYDROCODONE/APAP (5/325) TAB PO PRN (19:15)
[2016-11-29 19:48] VITALS: BP 128/68; RESP 18
[2016-11-29] MEDS: traZODone 100 MG TAB PO SCH (20:16)
[2016-11-30 08:07] VITALS: BP 115/61; RESP 18
[2016-11-30] MEDS: FLUOXETINE 20 MG CAP PO SCH (08:45)
[2016-11-30] MEDS: OLANZAPINE 5 MG TAB PO SCH (08:47)
[2016-11-30 08:56] VITALS: BP 115/61; PULSE 97; RESP 18
[2016-11-30] MEDS: PANTOPRAZOLE (EC) 40 MG TAB PO SCH (09:00)
--- NOTE | 2016-11-30 11:13 | PN ---
Date/Time of Note Date/Time of Note DATE: 11/30/16 TIME: 11:11 Assessment/Plan VTE Prophylaxis VTE Prophylaxis Intervention: ambulation, SCD's Lines/Catheters IV Catheter Type (from Nrsg): [place] Urinary Cath still in place: No Assessment/Plan Assessment/Plan 51-year-old female with: 1. Cervical spine spinal stenosis with myelopathy with known chronic spinal spondylosis. POD #14 at least C4-5 anterior cervical diskectomy and fusion with interbody graft and C5-6 anterior cervical diskectomy and interbody fusion. Patient now fully ambulatory to bathroom and in hallway with no assistance. Patient medically and neurosurgically stable to go to inpatient psych as of and d/c order has been placed 11/18. Pain control with prn [place] Patient with soft neck collar Repeating CBC, CMP, UA, Urine drug screen yesterday all wnl with U tox and test negative. 2. Major depressive disorder s/p suicidal attempt. The patient currently is stable but still depressed, has not suicidal intentions and hopelessness today but has been on/off this weekend and seems still motivated to voluntary commit to inpatient psych. Tele Psych re-eval done last week Continue 1:1 sitter for now unless we can have d/c sitter if can get front room with direct view from RN station . Needs inpatient psychiatric care per psych re-eval last week and patient is willing to voluntary commit to a facility but not able to place so far. Prophylaxis: SCDs for DVT prophylaxis. Pepcid for GI prophylaxis. DISPOSITION: D/c to inpatient Psych/voluntary commitment when bed available, medically cleared and stable for discharge as of 11/18. Subjective 24 Hr Interval Summary Free Text/Dictation Remains clinically stable for discharge to inpatient psych Exam/Review of Systems Vital Signs Vitals Vital Signs Date Time Temp Pulse Resp B/P Pulse Ox O2 Delivery O2 Flow Rate FiO2 11/30/16 08:56 98.2 97 18 115/61 98 Room Air 11/27/16 23:50 Intake and Output 11/29/16 11/29/16 11/30/16 15:00 23:00 07:00 Intake Total 1400 ml 280 ml Balance 1400 ml 280 ml Exam Constitutional: alert, oriented, well developed Psych: depression, other (on/off expressing hopelessness ) Respiratory: clear to auscultation, normal air movement Cardiovascular: nl pulses, regular rate and rhythm Gastrointestinal: non-tender, soft Musculoskeletal: nl extremities to inspection Extremities: normal pulses, other (no edema, clubbing or cyanosis ) 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: DOCK GRADER II-XII intact, nl mental status, nl speech, nl strength Results Result Diagram: 11/29/16 1113 11/29/16 1113 Results 24 hrs Laboratory Tests Test 11/29/16 11:13 11/29/16 11:15 Alanine Aminotransferase (ALT/SGPT) 23 Albumin 3.7 Albumin/Globulin Ratio 1.19 Alkaline Phosphatase 127 H Anion Gap 16 Aspartate Amino Transf (AST/SGOT) 18 Basophils # 0.0 Basophils % 0.5 Blood Morphology Comment Blood Urea Nitrogen 13 Calcium Level 9.3 Carbon Dioxide Level 27 Chloride Level 106 Creatinine 0.58 Direct Bilirubin 0.00 Eosinophils # 0.0 Eosinophils % 0.7 Globulin 3.10 Glucose Level 93 Hematocrit 36.2 L Hemoglobin 12.0 Indirect Bilirubin 0.1 Lymphocytes # 1.8 Lymphocytes % 30.9 Mean Corpuscular Hemoglobin 27.2 L Mean Corpuscular Hemoglobin Concent 33.1 Mean Corpuscular Volume 82.3 Mean Platelet Volume 8.6 Monocytes # 0.4 Monocytes % 6.3 Neutrophils # 3.5 Neutrophils % 61.6 Nucleated Red Blood Cells # 0.0 Nucleated Red Blood Cells % 0.0 Platelet Count 355 Potassium Level 4.1 Red Blood Count 4.39 Red Cell Distribution Width 13.9 Serum HCG, Qualitative NEGATIVE Sodium Level 145 H Total Bilirubin 0.1 L Total Protein 6.8 White Blood Count 5.7 Urine Amphetamines Screen NEGATIVE Urine Barbiturates NEGATIVE Urine Benzodiazepines Screen NEGATIVE Urine Bilirubin NEGATIVE Urine Cannabinoids NEGATIVE Urine Clarity CLEAR Urine Cocaine Screen NEGATIVE Urine Color LT. YELLOW Urine Glucose NEGATIVE Urine Hemoglobin NEGATIVE Urine Ketones NEGATIVE Urine Leukocyte Esterase NEGATIVE Urine Nitrite NEGATIVE Urine Opiates Screen NEGATIVE Urine Specific [place] <=1.005 L Urine Total Protein NEGATIVE Urine Urobilinogen 0.2 E.U./dL Urine pH 7.0 Medications Medications Current Medications Clonazepam (Klonopin) 1 mg Q8H PRN PO ANXIETY Last administered on 11/29/16 20 :21; Admin Dose 1 MG; Start 11/11/16 at 14:00 Fluoxetine HCl (Prozac) 40 mg DAILY PO Last administered on 11/30/16 08:45; Admin Dose 40 MG; Start 11/12/16 at 09:00 Olanzapine (Zyprexa) 15 mg DAILY PO Last administered on 11/30/16 08:47; Admin Dose 15 MG; Start 11/12/16 at 09:00 Ondansetron HCl (Zofran Inj) 4 mg Q6H PRN IV NAUSEA AND/OR VOMITING; Start 11/11 at 14:00 Acetaminophen (Tylenol Tab) 650 mg Q6H PRN PO PAIN LEVEL 1-3 OR FEVER Last administered on 11/26/16 20:04; Admin Dose 650 MG; Start 11/11/16 at 14:00 Acetaminophen/ Hydrocodone Bitart ([place] (5/325)) 1 tab Q6H PRN PO PAIN LEVEL 4 -6 Last administered on 11/28/16 19:47; Admin Dose 1 TAB; Start 11/11/16 at 14: 00 Docusate Sodium (Colace) 100 mg Q12H PRN PO CONSTIPATION Last administered on 18:40; Admin Dose 100 MG; Start 11/11/16 at 14:00 Magnesium Hydroxide (Milk Of Mag) 30 ml DAILY PRN PO CONSTIPATION Last administered on 11/18/16 06:24; Admin Dose 30 ML; Start 11/11/16 at 14:00 Bisacodyl (Dulcolax Supp) 10 mg DAILY PRN [place] CONSTIPATION; Start 11/11/16 at 14: 00 Trazodone HCl (Desyrel) 100 mg QHS PO Last administered on 11/29/16 20:16; Admin Dose 100 MG; Start 11/12/16 at 21:00 Pantoprazole (Protonix Tab) 40 mg DAILY@09 PO Last administered on 11/27/16 10 :28; Admin Dose 40 MG; Start 11/14/16 at 09:00 Acetaminophen/ Hydrocodone Bitart ([place] (5/325)) 1 tab Q4H PRN PO PAIN LEVEL 1 -5 Last administered on 11/27/16 10:25; Admin Dose 1 TAB; Start 11/15/16 at 19: 30 Acetaminophen/ Hydrocodone Bitart ([place] (5/325)) 2 tab Q4H PRN PO PAIN LEVEL 6 -10 Last administered on 11/29/16 19:15; Admin Dose 2 TAB; Start 11/15/16 at 19: 30 Al Hydrox/Mg Hydrox/Simethicone (Mag-Al Plus) 15 ml Q4H PRN PO CONSTIPATION Last administered on 11/25/16t 18:40; Admin Dose 15 ML; Start 11/15/16 at 19:30 Phenol (Cepastat Lozenge) 1 lozenge PRN PRN [place] SORE THROAT; Start 11/15/16 at 19 :30 Diphenhydramine HCl (Benadryl) 50 mg Q6H PRN PO PRURITUS; Start 11/15/16 at 19: 30 Naloxone HCl (Narcan) 0.2 mg Q2M PRN IV DECREASED REPIRATORY RATE; Start at 21:45 Bethanechol Chloride (Urecholine) 25 mg PRN PRN PO UNABLE TO VOID; Start at 07:30 JAE FERRARO Nov 30, 2016 11:13
[2016-11-30] MEDS: clonAZEPAM 0.5 MG TAB PO PRN (16:51)
[2016-11-30] MEDS: ACETAMINOPHEN 325 MG TAB PO PRN (20:06)
[2016-11-30] MEDS: traZODone 100 MG TAB PO SCH (20:06)
[2016-11-30 21:12] VITALS: BP 95/51; RESP 18
[2016-12-01] MEDS: clonAZEPAM 0.5 MG TAB PO PRN (07:57)
[2016-12-01] MEDS: PANTOPRAZOLE (EC) 40 MG TAB PO SCH (07:58)
[2016-12-01] MEDS: FLUOXETINE 20 MG CAP PO SCH (07:58)
[2016-12-01] MEDS: OLANZAPINE 5 MG TAB PO SCH (07:58)
[2016-12-01 08:47] VITALS: BP 118/62; RESP 18
--- NOTE | 2016-12-01 10:47 | PN ---
Date/Time of Note Date/Time of Note DATE: 12/01/16 TIME: 10:45 Assessment/Plan VTE Prophylaxis VTE Prophylaxis Intervention: ambulation, SCD's Lines/Catheters IV Catheter Type (from Nrsg): Saline [place] Urinary Cath still in place: No Assessment/Plan Assessment/Plan 51-year-old female with: 1. Cervical spine spinal stenosis with myelopathy with known chronic spinal spondylosis. POD #15 at least C4-5 anterior cervical diskectomy and fusion with interbody graft and C5-6 anterior cervical diskectomy and interbody fusion. Patient now fully ambulatory to bathroom and in hallway with no assistance. Patient medically and neurosurgically stable to go to inpatient psych as of and d/c order has been placed 11/18. Pain control with prn [place]yl[place], no need for Narcotics Patient using soft neck collar only when ambulating. Repeat CBC, CMP, UA, Urine drug screen this week all wnl with U tox and test negative. 2. Major depressive disorder s/p suicidal attempt. The patient currently is stable but still depressed, has not suicidal intentions and hopelessness today but has been on/off this weekend and seems still motivated to voluntary commit to inpatient psych. Tele Psych re-eval done last week Continue 1:1 sitter for now unless we can have d/c sitter if can get front room with direct view from RN station . Needs inpatient psychiatric care per psych re-eval last week. Still awaiting for placement Prophylaxis: SCDs for DVT prophylaxis. Pepcid for GI prophylaxis. DISPOSITION: D/c to inpatient Psych when bed available, medically cleared and stable for discharge as of 11/18. Subjective 24 Hr Interval Summary Free Text/Dictation Patient remains clinically stable for D/c to inpatient psych Awaiting bed in facility Exam/Review of Systems Vital Signs Vitals Vital Signs Date Time Temp Pulse Resp B/P Pulse Ox O2 Delivery O2 Flow Rate FiO2 12/01/16 08:47 97.5 85 18 118/62 95 11/30/16 08:56 Room Air 11/27/16 23:50 Intake and Output 11/30/16 11/30/16 12/01/16 15:00 23:00 07:00 Intake Total 1240 ml 360 ml Balance 1240 ml 360 ml Exam Constitutional: alert, oriented, well developed Psych: depression Respiratory: clear to auscultation, normal air movement Cardiovascular: nl pulses, regular rate and rhythm Gastrointestinal: non-tender, soft Musculoskeletal: nl extremities to inspection, nl gait and stance Extremities: normal pulses, other (no edema, clubbing or cyanosis ) 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, nl mental status, nl speech, nl strength Results Result Diagram: 11/29/16 1113 11/29/16 1113 Medications Medications Current Medications Clonazepam (Klonopin) 1 mg Q8H PRN PO ANXIETY Last administered on 12/01/16 07 :57; Admin Dose 1 MG; Start 11/11/16 at 14:00 Fluoxetine HCl (Prozac) 40 mg DAILY PO Last administered on 12/01/16 07:58; Admin Dose 40 MG; Start 11/12/16 at 09:00 Olanzapine (Zyprexa) 15 mg DAILY PO Last administered on 12/01/16 07:58; Admin Dose 15 MG; Start 11/12/16 at 09:00 Ondansetron HCl (Zofran Inj) 4 mg Q6H PRN IV NAUSEA AND/OR VOMITING; Start 11/11 at 14:00 Docusate Sodium (Colace) 100 mg Q12H PRN PO CONSTIPATION Last administered on 18:40; Admin Dose 100 MG; Start 11/11/16 at 14:00 Magnesium Hydroxide (Milk Of Mag) 30 ml DAILY PRN PO CONSTIPATION Last administered on 11/18/16 06:24; Admin Dose 30 ML; Start 11/11/16 at 14:00 Bisacodyl (Dulcolax Supp) 10 mg DAILY PRN [place] CONSTIPATION; Start 11/11/16 at 14: 00 Trazodone HCl (Desyrel) 100 mg QHS PO Last administered on 11/30/16 20:06; Admin Dose 100 MG; Start 11/12/16 at 21:00 Pantoprazole (Protonix Tab) 40 mg DAILY@09 PO Last administered on 12/01/16 07 :58; Admin Dose 40 MG; Start 11/14/16 at 09:00 Al Hydrox/Mg Hydrox/Simethicone (Mag-Al Plus) 15 ml Q4H PRN PO CONSTIPATION Last administered on 11/25/16 18:40; Admin Dose 15 ML; Start 11/15/16 at 19:30 Phenol (Cepastat Lozenge) 1 lozenge PRN PRN [place] SORE THROAT; Start 11/15/16 at 19 :30 Diphenhydramine HCl (Benadryl) 50 mg Q6H PRN PO PRURITUS; Start 11/15/16 at 19: 30 Naloxone HCl (Narcan) 0.2 mg Q2M PRN IV DECREASED REPIRATORY RATE; Start at 21:45 Bethanechol Chloride (Urecholine) 25 mg PRN PRN PO UNABLE TO VOID; Start at 07:30 Acetaminophen (Tylenol Tab) 650 mg Q6H PRN PO PAIN Last administered on t 20:06; Admin Dose 650 MG; Start 11/30/16 at 14:00 JAE FERRARO Dec 01, 2016 10:47 JAE FERRARO Dec 01, 2016 10:47
[2016-12-01] MEDS: ACETAMINOPHEN 325 MG TAB PO PRN (10:58)
[2016-12-01 20:05] VITALS: BP 120/72; RESP 18
[2016-12-01] MEDS: traZODone 100 MG TAB PO SCH (20:30)
[2016-12-02 07:48] VITALS: BP 111/59; RESP 20
[2016-12-02] MEDS: FLUOXETINE 20 MG CAP PO SCH (08:23)
[2016-12-02] MEDS: clonAZEPAM 0.5 MG TAB PO PRN (08:23)
[2016-12-02] MEDS: OLANZAPINE 5 MG TAB PO SCH (08:23)
[2016-12-02] MEDS: PANTOPRAZOLE (EC) 40 MG TAB PO SCH (09:59)
--- NOTE | 2016-12-02 11:39 | PN ---
Date/Time of Note Date/Time of Note DATE: 12/02/16 TIME: 11:39 Assessment/Plan VTE Prophylaxis VTE Prophylaxis Intervention: ambulation Lines/Catheters IV Catheter Type (from Nrsg): Saline Lock Urinary Cath still in place: No Assessment/Plan Assessment/Plan 51-year-old female with: 1. Cervical spine spinal stenosis with myelopathy with known chronic spinal spondylosis. POD #16 at least C4-5 anterior cervical diskectomy and fusion with interbody graft and C5-6 anterior cervical diskectomy and interbody fusion. Patient now fully ambulatory to bathroom and in hallway with no assistance. Patient medically and neurosurgically stable to go to inpatient psych as of and d/c order has been placed 11/18. Pain control with prn Tylenol, no need for Narcotics Patient using soft neck collar only when ambulating. Repeat CBC, CMP, UA, Urine drug screen this week all wnl with U tox and test negative. 2. Major depressive disorder s/p suicidal attempt. The patient currently is stable but still depressed, has not suicidal intentions and hopelessness today but has been on/off this weekend and seems still motivated to voluntary commit to inpatient psych. Tele Psych re-eval done last week Continue 1:1 sitter. Needs inpatient psychiatric care per psych re-eval last week. Still awaiting for placement Prophylaxis: SCDs for DVT prophylaxis. Pepcid for GI prophylaxis. DISPOSITION: D/c to inpatient Psych when bed available, medically cleared and stable for discharge as of 11/18. Subjective 24 Hr Interval Summary Free Text/Dictation Patient doing well and remains clinically stable for discharge to inpatient psych when bed available No complaints today, depressed Exam/Review of Systems Vital Signs Vitals Vital Signs Date Time Temp Pulse Resp B/P Pulse Ox O2 Delivery O2 Flow Rate FiO2 12/02/16 07:48 97.9 92 20 111/59 95 11/30/16 08:56 Room Air Intake and Output 12/01/16 12/01/16 12/02/16 15:00 23:00 07:00 Intake Total 1064 ml 460 ml Balance 1064 ml 460 ml Exam Constitutional: alert, oriented Psych: depression Respiratory: clear to auscultation, normal air movement Cardiovascular: nl pulses, regular rate and rhythm Gastrointestinal: non-tender, soft Musculoskeletal: nl extremities to inspection, other (no edema, clubbing or cyanosis ) Extremities: normal pulses 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: 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, nl mental status, nl speech, nl strength Results Result Diagram: 11/29/16 1113 11/29/16 1113 Medications Medications Current Medications Clonazepam (Klonopin) 1 mg Q8H PRN PO ANXIETY Last administered on 12/02/16 08 :23; Admin Dose 1 MG; Start 11/11/16 at 14:00 Fluoxetine HCl (Prozac) 40 mg DAILY PO Last administered on 12/02/16 08:23; Admin Dose 40 MG; Start 11/12/16 at 09:00 Olanzapine (Zyprexa) 15 mg DAILY PO Last administered on 12/02/16 08:23; Admin Dose 15 MG; Start 11/12/16 at 09:00 Ondansetron HCl (Zofran Inj) 4 mg Q6H PRN IV NAUSEA AND/OR VOMITING; Start 11/11 at 14:00 Docusate Sodium (Colace) 100 mg Q12H PRN PO CONSTIPATION Last administered on 18:40; Admin Dose 100 MG; Start 11/11/16 at 14:00 Magnesium Hydroxide (Milk Of Mag) 30 ml DAILY PRN PO CONSTIPATION Last administered on 11/18/16 06:24; Admin Dose 30 ML; Start 11/11/16 at 14:00 Bisacodyl (Dulcolax Supp) 10 mg DAILY PRN [place] CONSTIPATION; Start 11/11/16 at 14: 00 Trazodone HCl (Desyrel) 100 mg QHS PO Last administered on 12/01/16 20:30; Admin Dose 100 MG; Start 11/12/16 at 21:00 Pantoprazole (Protonix Tab) 40 mg DAILY@09 PO Last administered on 12/02/16 09 :59; Admin Dose 40 MG; Start 11/14/16 at 09:00 Al Hydrox/Mg Hydrox/Simethicone (Mag-Al Plus) 15 ml Q4H PRN PO CONSTIPATION Last administered on 11/25/16 18:40; Admin Dose 15 ML; Start 11/15/16 at 19:30 Phenol (Cepastat Lozenge) 1 lozenge PRN PRN [place] SORE THROAT; Start 11/15/16 at 19 :30 Diphenhydramine HCl (Benadryl) 50 mg Q6H PRN PO PRURITUS; Start 11/15/16 at 19: 30 Naloxone HCl (Narcan) 0.2 mg Q2M PRN IV DECREASED REPIRATORY RATE; Start at 21:45 Bethanechol Chloride (Urecholine) 25 mg PRN PRN PO UNABLE TO VOID; Start at 07:30 Acetaminophen (Tylenol Tab) 650 mg Q6H PRN PO PAIN Last administered on t 10:58; Admin Dose 650 MG; Start 11/30/16 at 14:00 JAE FERRARO Dec 02, 2016 11:39
[2016-12-02] MEDS: traZODone 100 MG TAB PO SCH (20:07)
[2016-12-02 20:30] VITALS: BP 122/72; PULSE 88; RESP 18
[2016-12-03] MEDS: clonAZEPAM 0.5 MG TAB PO PRN (07:20)
[2016-12-03 07:27] VITALS: BP 122/70; RESP 16
[2016-12-03] MEDS: OLANZAPINE 5 MG TAB PO SCH (08:45)
[2016-12-03] MEDS: FLUOXETINE 20 MG CAP PO SCH (08:46)
[2016-12-03] MEDS: PANTOPRAZOLE (EC) 40 MG TAB PO SCH (08:46)
[2016-12-03] MEDS: ACETAMINOPHEN 325 MG TAB PO PRN (11:32)
[2016-12-03 19:00] VITALS: BP 124/72; RESP 18
[2016-12-03] MEDS: traZODone 100 MG TAB PO SCH (20:05)
--- NOTE | 2016-12-04 01:16 | PN ---
Date/Time of Note Date/Time of Note DATE: 12/04/16 TIME: 01:10 Assessment/Plan VTE Prophylaxis VTE Prophylaxis Intervention: SCD's Lines/Catheters [facility] Saline Lock Urinary Cath still in place: No Assessment/Plan Assessment/Plan [facility] 1. Hospital day 21 for this 51-year-old woman suffering from cervical spinal stenosis with myelopathy with known chronic spinal spondylosis. She is post-op day 17 for C4-5 anterior cervical diskectomy and fusion with interbody graft and C5-6 anterior cervical diskectomy and interbody fusion. Ambulatory without assistance. Patient medically and neurosurgically stable to go to inpatient psych as of 11/18 and discharge order placed that day. * Pain control with PRN Tylenol * Patient using soft neck collar only when ambulating. 2. Major depressive disorder s/p suicide attempt. Still expressing hopelessness. Repeat Tele Psych evaluation last week * Continue 1:1 sitter. * Stable on olanzepine, fluoxetine, and trazodone * Inquiries made again today about placement for inpatient psychiatric care per psych re-eval last week. No beds available. 3. Prophylaxis: SCDs for DVT prophylaxis. Pepcid for GI prophylaxis. 4. DISPOSITION: Discharge to inpatient psychiatry when bed available. Kelli Lane MD PhD [phone] Subjective 24 Hr Interval Summary Free Text/Dictation Sitter present. Patient supine. Good eye contact, but indicates she wants to . No pain complaints, including the neck. No nausea. Exam/Review of Systems Vital Signs Vitals Vital Signs Date Time Temp Pulse Resp B/P Pulse Ox O2 Delivery O2 Flow Rate FiO2 12/03/16 19:00 98.1 79 18 124/72 97 12/02/16 20:30 Room Air Intake and Output 12/03/16 12/03/16 12/04/16 15:00 23:00 07:00 Intake Total 1420 ml Balance 1420 ml Exam Constitutional: alert, oriented, depressed affect. 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 Toes downgoing. Medications Medications Current Medications Clonazepam (Klonopin) 1 mg Q8H PRN PO ANXIETY Last administered on 12/03/16 07 :20; Admin Dose 1 MG; Start 11/11/16 at 14:00 Fluoxetine HCl (Prozac) 40 mg DAILY PO Last administered on 12/03/16 08:46; Admin Dose 40 MG; Start 11/12/16 at 09:00 Olanzapine (Zyprexa) 15 mg DAILY PO Last administered on 12/03/16 08:45; Admin Dose 15 MG; Start 11/12/16 at 09:00 Ondansetron HCl (Zofran Inj) 4 mg Q6H PRN IV NAUSEA AND/OR VOMITING; Start 11/11 at 14:00 Docusate Sodium (Colace) 100 mg Q12H PRN PO CONSTIPATION Last administered on 18:40; Admin Dose 100 MG; Start 11/11/16 at 14:00 Magnesium Hydroxide (Milk Of Mag) 30 ml DAILY PRN PO CONSTIPATION Last administered on 11/18/16 06:24; Admin Dose 30 ML; Start 11/11/16 at 14:00 Bisacodyl (Dulcolax Supp) 10 mg DAILY PRN [place] CONSTIPATION; Start 11/11/16 at 14: 00 Trazodone HCl (Desyrel) 100 mg QHS PO Last administered on 12/03/16 20:05; Admin Dose 100 MG; Start 11/12/16 at 21:00 Pantoprazole (Protonix Tab) 40 mg DAILY@09 PO Last administered on 12/03/16 08 :46; Admin Dose 40 MG; Start 11/14/16 at 09:00 Al Hydrox/Mg Hydrox/Simethicone (Mag-Al Plus) 15 ml Q4H PRN PO CONSTIPATION Last administered on 11/25/16 18:40; Admin Dose 15 ML; Start 11/15/16 at 19:30 Phenol (Cepastat Lozenge) 1 lozenge PRN PRN [place] SORE THROAT; Start 11/15/16 at 19 :30 Diphenhydramine HCl (Benadryl) 50 mg Q6H PRN PO PRURITUS; Start 11/15/16 at 19: 30 Naloxone HCl (Narcan) 0.2 mg Q2M PRN IV DECREASED REPIRATORY RATE; Start at 21:45 Bethanechol Chloride (Urecholine) 25 mg PRN PRN PO UNABLE TO VOID; Start at 07:30 Acetaminophen (Tylenol Tab) 650 mg Q6H PRN PO PAIN Last administered on t 11:32; Admin Dose 650 MG; Start 11/30/16 at 14:[address] M.D. Dec 04, 2016 01:16
[2016-12-04 08:16] VITALS: BP 108/67; RESP 16
[2016-12-04] MEDS: OLANZAPINE 5 MG TAB PO SCH (09:35)
[2016-12-04] MEDS: PANTOPRAZOLE (EC) 40 MG TAB PO SCH (09:35)
[2016-12-04] MEDS: FLUOXETINE 20 MG CAP PO SCH (09:35)
[2016-12-04] MEDS: clonAZEPAM 0.5 MG TAB PO PRN (09:36)
[2016-12-04] MEDS: ACETAMINOPHEN 325 MG TAB PO PRN (12:44)
[2016-12-04 19:59] VITALS: BP 122/65; RESP 20
[2016-12-04] MEDS: traZODone 100 MG TAB PO SCH (21:32)
--- NOTE | 2016-12-04 23:56 | PN ---
Date/Time of Note Date/Time of Note DATE: 12/04/16 TIME: 23:56 Assessment/Plan VTE Prophylaxis VTE Prophylaxis Intervention: SCD's Lines/Catheters IV Catheter Type (from Nrs): Saline Lock Urinary Cath still in place: No Assessment/Plan Assessment/Plan [facility] 1. Hospital day 22 and post-op day 18 for C4-5 anterior cervical diskectomy and fusion with interbody graft and C5-6 anterior cervical diskectomy and interbody fusion. Ms. Clark suffered from cervical spinal stenosis with myelopathy with known chronic spinal spondylosis. She is able to ambulate without assistance. She is medically and neurosurgically stable to go to inpatient psych as of 11/18 and discharge order placed that day, though an available bed has not been located. * Pain control with PRN Tylenol * Patient using soft neck collar only when ambulating * Placement issues discussed this morning on rounds 2. Major depressive disorder s/p suicide attempt. She is still expressing hopelessness this morning. * Continue 1:1 sitter. * Stable on olanzepine, fluoxetine, and trazodone 3. Prophylaxis: SCDs for DVT prophylaxis. Famotidine for GI prophylaxis. 4. DISPOSITION: Discharge to inpatient psychiatry when bed available. Kelli Lane MD PhD [phone] Subjective 24 Hr Interval Summary Free Text/Dictation Again volunteered that she feels hopeless. But she indicated she has no headache, visual change, leg pain or swelling, or nausea. Exam/Review of Systems Vital Signs Vitals Vital Signs Date Time Temp Pulse Resp B/P Pulse Ox O2 Delivery O2 Flow Rate FiO2 12/04/16 19:59 98.1 98 20 122/65 93 12/02/16 20:30 Room Air Intake and Output 12/03/16 12/03/16 12/04/16 15:00 23:00 07:00 Intake Total 1420 ml 600 ml Balance 1420 ml 600 ml Exam Constitutional: alert, depressed affect, speaking in Chinese but seems to understand Latvian Respiratory: Clear to auscultation, normal air movement Cardiovascular: Symmetric pulses, regular rhythm and normal rate Gastrointestinal: Non-tender, soft, bowel sounds normal Musculoskeletal: No edema, clubbing or cyanosis Extremities: normal pulses 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: 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 Toes downgoing. Medications Medications Current Medications Clonazepam (Klonopin) 1 mg Q8H PRN PO ANXIETY Last administered on 12/04/16 09 :36; Admin Dose 1 MG; Start 11/11/16 at 14:00 Fluoxetine HCl (Prozac) 40 mg DAILY PO Last administered on 12/04/16 09:35; Admin Dose 40 MG; Start 11/12/16 at 09:00 Olanzapine (Zyprexa) 15 mg DAILY PO Last administered on 12/04/16 09:35; Admin Dose 15 MG; Start 11/12/16 at 09:00 Ondansetron HCl (Zofran Inj) 4 mg Q6H PRN IV NAUSEA AND/OR VOMITING; Start 11/11 at 14:00 Docusate Sodium (Colace) 100 mg Q12H PRN PO CONSTIPATION Last administered on 18:40; Admin Dose 100 MG; Start 11/11/16 at 14:00 Magnesium Hydroxide (Milk Of Mag) 30 ml DAILY PRN PO CONSTIPATION Last administered on 11/18/16 06:24; Admin Dose 30 ML; Start 11/11/16 at 14:00 Bisacodyl (Dulcolax Supp) 10 mg DAILY PRN [place] CONSTIPATION; Start 11/11/16 at 14: 00 Trazodone HCl (Desyrel) 100 mg QHS PO Last administered on 12/04/16 21:32; Admin Dose 100 MG; Start 11/12/16 at 21:00 Pantoprazole (Protonix Tab) 40 mg DAILY@09 PO Last administered on 12/04/16 09 :35; Admin Dose 40 MG; Start 11/14/16 at 09:00 Al Hydrox/Mg Hydrox/Simethicone (Mag-Al Plus) 15 ml Q4H PRN PO CONSTIPATION Last administered on 11/25/16 18:40; Admin Dose 15 ML; Start 11/15/16 at 19:30 Phenol (Cepastat Lozenge) 1 lozenge PRN PRN [place] SORE THROAT; Start 11/15/16 at 19 :30 Diphenhydramine HCl (Benadryl) 50 mg Q6H PRN PO PRURITUS; Start 11/15/16 at 19: 30 Naloxone HCl (Narcan) 0.2 mg Q2M PRN IV DECREASED REPIRATORY RATE; Start at 21:45 Bethanechol Chloride (Urecholine) 25 mg PRN PRN PO UNABLE TO VOID; Start at 07:30 Acetaminophen (Tylenol Tab) 650 mg Q6H PRN PO PAIN Last administered on t 12:44; Admin Dose 650 MG; Start 11/30/16 at 14:[address] M.D. Dec 04, 2016 23:56
[2016-12-05] MEDS: clonAZEPAM 0.5 MG TAB PO PRN (09:15)
[2016-12-05] MEDS: PANTOPRAZOLE (EC) 40 MG TAB PO SCH (09:16)
[2016-12-05] MEDS: FLUOXETINE 20 MG CAP PO SCH (09:16)
[2016-12-05] MEDS: OLANZAPINE 5 MG TAB PO SCH (09:16)
--- NOTE | 2016-12-05 11:04 | PN ---
Date/Time of Note Date/Time of Note DATE: 12/05/16 TIME: 10:59 Assessment/Plan VTE Prophylaxis VTE Prophylaxis Intervention: ambulation, SCD's Lines/Catheters IV Catheter Type (from Nrsg): Saline Lock Urinary Cath still in place: No Assessment/Plan Assessment/Plan 51-year-old female with: 1. Cervical spine spinal stenosis with myelopathy with known chronic spinal spondylosis. POD #19 at least C4-5 anterior cervical diskectomy and fusion with interbody graft and C5-6 anterior cervical diskectomy and interbody fusion. Patient now fully ambulatory to bathroom and in hallway with no assistance. Pain control with prn Tylenol, no need for Narcotics Patient using soft neck collar only when ambulating. Patient medically and neurosurgically stable to go to inpatient psych as of and d/c order has been placed 11/18. 2. Major depressive disorder s/p suicidal attempt. The patient currently is stable but still depressed, has not suicidal intentions and hopelessness today but has been on/off this past week. Tele Psych re-eval done last week Continue 1:1 sitter. Continue current meds. Needs inpatient psychiatric care per psych re-eval last week. Still awaiting for placement Prophylaxis: SCDs for DVT prophylaxis. Pepcid for GI prophylaxis. DISPOSITION: D/c to inpatient Psych when bed available, medically cleared and stable for discharge as of 11/18. Subjective 24 Hr Interval Summary Free Text/Dictation Patient remains stable for d/c to inpatient psych whenever bed available Exam/Review of Systems Vital Signs Vitals Vital Signs Date Time Temp Pulse Resp B/P Pulse Ox O2 Delivery O2 Flow Rate FiO2 12/04/16 19:59 98.1 98 20 122/65 93 12/02/16 20:30 Room Air Intake and Output 12/04/16 12/04/16 12/05/16 15:00 23:00 07:00 Intake Total 700 ml 420 ml Balance 700 ml 420 ml Exam Constitutional: alert, oriented, well developed Psych: depression Respiratory: clear to auscultation, normal air movement Cardiovascular: nl pulses, regular rate and rhythm Gastrointestinal: non-tender, soft Musculoskeletal: nl extremities to inspection, nl gait and stance Extremities: normal pulses 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: 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 intact, nl mental status, nl speech, nl strength Medications Medications Current Medications Clonazepam (Klonopin) 1 mg Q8H PRN PO ANXIETY Last administered on 12/05/16 09 :15; Admin Dose 1 MG; Start 11/11/16 at 14:00 Fluoxetine HCl (Prozac) 40 mg DAILY PO Last administered on 12/05/16 09:16; Admin Dose 40 MG; Start 11/12/16 at 09:00 Olanzapine (Zyprexa) 15 mg DAILY PO Last administered on 12/05/16 09:16; Admin Dose 15 MG; Start 11/12/16 at 09:00 Ondansetron HCl (Zofran Inj) 4 mg Q6H PRN IV NAUSEA AND/OR VOMITING; Start 11/11 at 14:00 Docusate Sodium (Colace) 100 mg Q12H PRN PO CONSTIPATION Last administered on 18:40; Admin Dose 100 MG; Start 11/11/16 at 14:00 Magnesium Hydroxide (Milk Of Mag) 30 ml DAILY PRN PO CONSTIPATION Last administered on 11/18/16 06:24; Admin Dose 30 ML; Start 11/11/16 at 14:00 Bisacodyl (Dulcolax Supp) 10 mg DAILY PRN [place] CONSTIPATION; Start 11/11/16 at 14: 00 Trazodone HCl (Desyrel) 100 mg QHS PO Last administered on 12/04/16 21:32; Admin Dose 100 MG; Start 11/12/16 at 21:00 Pantoprazole (Protonix Tab) 40 mg DAILY@09 PO Last administered on 12/05/16 09 :16; Admin Dose 40 MG; Start 11/14/16 at 09:00 Al Hydrox/Mg Hydrox/Simethicone (Mag-Al Plus) 15 ml Q4H PRN PO CONSTIPATION Last administered on 11/25/16 18:40; Admin Dose 15 ML; Start 11/15/16 at 19:30 Phenol (Cepastat Lozenge) 1 lozenge PRN PRN [place] SORE THROAT; Start 11/15/16 at 19 :30 Diphenhydramine HCl (Benadryl) 50 mg Q6H PRN PO PRURITUS; Start 11/15/16 at 19: 30 Naloxone HCl (Narcan) 0.2 mg Q2M PRN IV DECREASED REPIRATORY RATE; Start at 21:45 Bethanechol Chloride (Urecholine) 25 mg PRN PRN PO UNABLE TO VOID; Start at 07:30 Acetaminophen (Tylenol Tab) 650 mg Q6H PRN PO PAIN Last administered on t 12:44; Admin Dose 650 MG; Start 11/30/16 at 14:00 JAE FERRARO Dec 05, 2016 11:04
[2016-12-05 19:25] VITALS: BP 117/72; RESP 18
[2016-12-05] MEDS: traZODone 100 MG TAB PO SCH (20:13)
[2016-12-06 07:56] VITALS: BP 115/66; RESP 18
[2016-12-06 08:06] VITALS: BP 115/66; RESP 18
[2016-12-06] MEDS: PANTOPRAZOLE (EC) 40 MG TAB PO SCH (08:57)
[2016-12-06] MEDS: FLUOXETINE 20 MG CAP PO SCH (08:58)
[2016-12-06] MEDS: OLANZAPINE 5 MG TAB PO SCH (08:58)
[2016-12-06] MEDS: clonAZEPAM 0.5 MG TAB PO PRN (10:08)
--- NOTE | 2016-12-06 11:29 | PN ---
Date/Time of Note Date/Time of Note DATE: 12/06/16 TIME: 11:14 Assessment/Plan VTE Prophylaxis VTE Prophylaxis Intervention: SCD's Lines/Catheters IV Catheter Type (from Nrsg): Saline Lock Urinary Cath still in place: No Assessment/Plan Assessment/Plan 51-year-old female with: 1. Cervical spine spinal stenosis with myelopathy with known chronic spinal spondylosis. POD #20 at least C4-5 anterior cervical diskectomy and fusion with interbody graft and C5-6 anterior cervical diskectomy and interbody fusion. Patient now fully ambulatory to bathroom and in hallway with no assistance. Pain control with prn Tylenol, no need for Narcotics Patient using soft neck collar only when ambulating. Patient medically and neurosurgically stable to go to inpatient psych as of and d/c order has been placed 11/18. 2. Major depressive disorder s/p suicidal attempt. The patient currently is stable but still depressed, now with again suicidal intentions over past couple of days and ongoing hopelessness. Tele Psych re-eval done last week Continue 1:1 sitter. Continue current meds. Needs inpatient psychiatric care per psych re-eval 11/22. Still awaiting for placement Prophylaxis: SCDs for DVT prophylaxis. Pepcid for GI prophylaxis. DISPOSITION: D/c to inpatient Psych when bed available, medically cleared and stable for discharge as of 11/18. Subjective 24 Hr Interval Summary Free Text/Dictation Patient remains stable clinically but still with suicidal ideations and ongoing hopelessness Awaiting inpatient psych placement today Exam/Review of Systems Vital Signs Vitals Vital Signs Date Time Temp Pulse Resp B/P Pulse Ox O2 Delivery O2 Flow Rate FiO2 12/06/16 08:06 97.9 90 18 115/66 96 12/02/16 20:30 Room Air Intake and Output 12/05/16 12/05/16 12/06/16 15:00 23:00 07:00 Intake Total 450 ml Balance 450 ml Exam Constitutional: alert, oriented, well developed Psych: depression Respiratory: clear to auscultation, normal air movement Cardiovascular: nl pulses, regular rate and rhythm Gastrointestinal: non-tender, soft Musculoskeletal: nl extremities to inspection, nl gait and stance Extremities: normal pulses, other (no edema, clubbing or cyanosis ) 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, nl mental status, nl speech, nl strength Medications Medications Current Medications Clonazepam (Klonopin) 1 mg Q8H PRN PO ANXIETY Last administered on 12/06/16 10 :08; Admin Dose 1 MG; Start 11/11/16 at 14:00 Fluoxetine HCl (Prozac) 40 mg DAILY PO Last administered on 12/06/16 08:58; Admin Dose 40 MG; Start 11/12/16 at 09:00 Olanzapine (Zyprexa) 15 mg DAILY PO Last administered on 12/06/16 08:58; Admin Dose 15 MG; Start 11/12/16 at 09:00 Ondansetron HCl (Zofran Inj) 4 mg Q6H PRN IV NAUSEA AND/OR VOMITING; Start 11/11 at 14:00 Docusate Sodium (Colace) 100 mg Q12H PRN PO CONSTIPATION Last administered on 18:40; Admin Dose 100 MG; Start 11/11/16 at 14:00 Magnesium Hydroxide (Milk Of Mag) 30 ml DAILY PRN PO CONSTIPATION Last administered on 11/18/16 06:24; Admin Dose 30 ML; Start 11/11/16 at 14:00 Bisacodyl (Dulcolax Supp) 10 mg DAILY PRN [place] CONSTIPATION; Start 11/11/16 at 14: 00 Trazodone HCl (Desyrel) 100 mg QHS PO Last administered on 12/05/16 20:13; Admin Dose 100 MG; Start 11/12/16 at 21:00 Pantoprazole (Protonix Tab) 40 mg DAILY@09 PO Last administered on 12/06/16 08 :57; Admin Dose 40 MG; Start 11/14/16 at 09:00 Al Hydrox/Mg Hydrox/Simethicone (Mag-Al Plus) 15 ml Q4H PRN PO CONSTIPATION Last administered on 11/25/16 18:40; Admin Dose 15 ML; Start 11/15/16 at 19:30 Phenol (Cepastat Lozenge) 1 lozenge PRN PRN [place] SORE THROAT; Start 11/15/16 at 19 :30 Diphenhydramine HCl (Benadryl) 50 mg Q6H PRN PO PRURITUS; Start 11/15/16 at 19: 30 Naloxone HCl (Narcan) 0.2 mg Q2M PRN IV DECREASED REPIRATORY RATE; Start at 21:45 Bethanechol Chloride (Urecholine) 25 mg PRN PRN PO UNABLE TO VOID; Start at 07:30 Acetaminophen (Tylenol Tab) 650 mg Q6H PRN PO PAIN Last administered on t 12:44; Admin Dose 650 MG; Start 11/30/16 at 14:00 JAE FERRARO Dec 06, 2016 11:28
--- NOTE | 2016-12-06 16:53 | DS ---
DATE OF ADMISSION: 11/10/2016 DATE OF DISCHARGE: 12/06/2016 PRIMARY CARE PHYSICIAN: Unknown. CHIEF COMPLAINT ON ADMISSION: Status post suicidal attempt and inability to walk with a cervical sp ine injury. BRIEF HISTORY OF PRESENT ILLNESS: This is a 51-year-old female with history of major depressive dis order, status post suicidal attempt at least once, requiring inpatient psychiatric care, who again h ad another suicidal attempt by taking multiple pills, unknown at home. The patient apparently was f ound on the floor, she did fall. She was brought to the emergency department when she was noted to b e suicidal and status post attempt per the family report. HOSPITAL COURSE: The patient was observing the ER, actually for at least a couple of days, as when she did wake up she was unable to walk apparently. She, therefore MRIs of the cervical spine and als o thoracic and lumbar as a trauma series at that time she was found to have a cervical spine injury with ligamentous injury and possibly spinal cord involvement. The patient was therefore admitted to the medicine service for neurosurgical evaluation. HOSPITAL COURSE: The patient was admitted to the intensive care unit at first. She was placed on [place]. She was evaluated by Dr. Pastor Salas from neurosurgery. After observation for a few days she was subsequently transferred to the floor, remained stable. After discussion with the patient' s conservator and ex-, they agreed to surgery for cervical spine decompression and fusion. S he had the procedure done almost 3 weeks ago now. Since then she has been on the medical/surgical fl oor. She went to physical therapy. She was requiring neck collar which at this point, she only req uires a soft neck collar while ambulating. She has improved tremendously. She is able to ambulate on her own to and from the bathroom. She only again wears soft neck collar while ambulating. She i s compliant with all the direction; however, she remains suicidal. Patient throughout this past 3 t o 4 weeks she has been with us has been on and off expressing suicidal ideation more often than none . She has expressed hopelessness so far. She has been evaluated by tele psychiatry multiple times and the recommendation has been so far for patient to go to an inpatient psychiatric facility due to high risk to harm herself. She has been restarted on her Zyprexa along with Clonazepam and Prozac at this point. She will be transferred to a psychiatric facility finally today. She has been medic ally cleared and discharged from the medical standpoint since November 18 but we have been having trouble finding placement, which finally came through today on 12/06/2016. At the time of discharge , she is stable. She is very close to baseline from the medical standpoint; however, from the psych iatric standpoint she is still expressing suicidal ideation. DISPOSITION: Discharge to inpatient psych. DISCHARGE CONDITION: Stable. DISCHARGE DIET: Regular diet. DISCHARGE ACTIVITY: Ambulate as tolerated. The patient is to wear a soft neck collar with ambulati on for the next couple of weeks, then it can be discontinued. FOLLOWUP: The patient needs to follow up with psychiatry at the inpatient psych facility. She is t o follow up with neurosurgery as needed as an outpatient. DISCHARGE DIAGNOSES 1. Status post cervical spine fusion and decompression C4-C6. 2. History of cervical spinal stenosis with myelopathy and chronic spinal spondylosis. 3. Major depressive disorder, status post suicidal attempt. This is at least the second one. 4. Ongoing suicidal ideation. DISCHARGE MEDICATIONS: 1. Clonazepam 1 mg p.o. q 8 hours p.r.n. anxiety. 2. Prozac 40 mg p.o. daily. 3. Zyprexa 15 mg p.o. daily. 4. Trazodone 100 mg p.o. at bedtime. 5. Protonix 40 mg p.o. daily. 6. Tylenol 650 mg p.o. q.6h. p.r.n. pain. Dictated By: JAE DUNNE/MICHAEL Conf#: [id number] DID#: [id number]
== END 2016-12-06 15:05 | DRG 907 ==
LOC: E/R 11:32 → ICU 11-10 09:38 → MS1 11-11 14:21 → MS2 11-13 16:55 → MS1 11-15 18:19
PROVIDERS: ADMIT Internal Medicine; ATTEND Internal Medicine
PROC: 0RG20A0 Fusion of 2 or more Cervical Vertebral Joints with Interbody Fusion Device, Anterior Approach, Anterior Column, Open Approach (ICD-10-PCS; principal; 2016-11-10)
PROC: 0RB30ZZ Excision of Cervical Vertebral Disc, Open Approach (ICD-10-PCS; 2016-11-10)
PROC: 07DS3ZZ Extraction of Vertebral Bone Marrow, Percutaneous Approach (ICD-10-PCS; 2016-11-10)
DX: T43.222A Poisoning by selective serotonin reuptake inhibitors, intentional self-harm, initial encounter (principal); G92 Toxic encephalopathy; F33.3 Major depressive disorder, recurrent, severe with psychotic symptoms; M47.12 Other spondylosis with myelopathy, cervical region; F33.8 Other recurrent depressive disorders; T43.212A Poisoning by selective serotonin and norepinephrine reuptake inhibitors, intentional self-harm, initial encounter; Y92.009 Unspecified place in unspecified non-institutional (private) residence as the place of occurrence of the external cause; R29.2 Abnormal reflex; R20.0 Anesthesia of skin; R27.0 Ataxia, unspecified; R50.9 Fever, unspecified
CPT/HCPCS: 36415; 70450; 70551; 71010; 72050; 72141; 72146; 72148; 80048; 80053; 80306; 80307; 81001; 81003; 82140; 82550; 82553; 83735; 84100; 84436; 84479; 84484; 84703; 85014; 85018; 85025; 85610; 85730; 87081; 87086; 88304; 90686; 93005; 96374; 96375; 97110; 97116; 97163; 97167; 97530; C9113; J0690; J1100; J1170; J1644; J2175; J2250; J2270; J2310; J2370; J2405; J2710; J3010; J7030; J7509